=== PATIENT | male | born 1945 | race Caucasian/White ===

== ENCOUNTER 2017-10-17 14:13 | Inpatient (IN) | payer OTHER, MEDICARE ==
[~2017-10-17] VITALS: Ht 175.3 cm; Wt 65.6 kg
[2017-10-17 14:35] VITALS: BP 165/81; PULSE 63; RESP 20; TEMP 98.2; O2SAT 96
[2017-10-17] MEDS ORDERED: SODIUM CHLORIDE 0.9% FLUSH 10 ML FLUSH IV FLUSH PRN (15:30)
--- NOTE | 2017-10-17 15:33 | PD ---
HPI Chief Complaint: Psychiatric Symptoms Time Seen by Provider: 15:06 Travel History International Travel<30 days: No Contact w/Intl Traveler<30days: No Traveled to known affect area: No History of Present Illness HPI 72-year-old male originally from [facility], is brought in under the Hu act with altered mental status and psychiatric issues. Patient has not been seen here before at [facility]. Patient is here with his who states long history including 3 previous strokes, and CABG 1 year ago, with secondary air embolism to the brain. Patient's states that he also has had a non- malignant brain tumor that was found at that time as well. Patient's states increased psychiatric symptoms including hallucinations, escaping his house, acting strangely and going to other people's houses, including locking himself in the neighbor's garage over the last several weeks. Patient is noted to have an indwelling catheter secondary to neurogenic bladder. He does have a psychiatrist and neurologist who are not here at [facility]. Patient has not had recent illness. The patient sells is concerned about his sexual relations with his . He is an unreliable historian. He was Hu acted today as he was in a neighbor's house with young children, and they were unaware of the patient' s condition. The feels that she is unable to care for the patient at home due to his increasing delusions and escaping behavior. She is concerned for his safety as well as others. He has no known drug allergies. [facility] Social History Alcohol Use: No Tobacco Use: No Substance Use: No Allergies-Medications (Allergen,Severity, Reaction): Coded Allergies: No Known Allergies (Unverified , 10/17/17) Review of Systems ROS Limitations: Poor Historian Except as stated in HPI: all other systems reviewed are Neg General / Constitutional: No: Fever Eyes: No: Visual changes HENT: No: Headaches Cardiovascular: No: Chest Pain or Discomfort Respiratory: No: Shortness of Breath Gastrointestinal: No: Abdominal Pain Genitourinary: No: Dysuria Musculoskeletal: No: Pain Skin: No Rash Neurologic: No: Weakness Psychiatric: No: Depression Endocrine: No: Polydipsia Hematologic/Lymphatic: No: Easy Bruising Physical Exam Exam Limitations: Altered Mental Status, Poor Historian Narrative GENERAL: Patient appears in good spirits. He answers questions appropriately, but is focused on his, and his 's sexual relations. SKIN: Warm and dry. Normal color. Normal turgor. No rash HEAD: Atraumatic. Normocephalic. EYES: Pupils equal and round. No scleral icterus. No injection or drainage. No nystagmus. ENT: No nasal bleeding or discharge. Mucous membranes pink and moist. Pharynx is clear. Airways patent NECK: Trachea midline. Supple and nontender. CARDIOVASCULAR: Regular rate and rhythm. RESPIRATORY: No accessory muscle use. Clear to auscultation. Breath sounds equal bilaterally. GASTROINTESTINAL: Abdomen soft, non-tender, nondistended. Hepatic and splenic margins not palpable. MUSCULOSKELETAL: Extremities without clubbing, cyanosis, or edema. No obvious deformities. NEUROLOGICAL: Awake and alert. No obvious cranial nerve deficits. Motor grossly within normal limits. Five out of 5 muscle strength in the arms and legs. Normal speech. PSYCHIATRIC: Appropriate mood and affect; insight and judgment normal. Data Data Last Documented VS Vital Signs Date Time Temp Pulse Resp B/P (MAP) Pulse Ox O2 Delivery O2 Flow Rate FiO2 10/17/17 16:02 58 16 195/112 (139) 98 Room Air 10/17/17 14:35 98.2 Orders Orders Electrocardiogram (10/17/17 15:17) Ammonia (10/17/17 15:17) Complete Blood Count With Diff (10/17/17 15:17) Comprehensive Metabolic Panel (10/17/17 15:17) Prothrombin Time / Inr (Pt) (10/17/17 15:17) Act Partial Throm Time (Ptt) (10/17/17 15:17) Troponin I (10/17/17 15:17) Thyroid Stimulating Hormone (10/17/17 15:17) Urinalysis - C+S If Indicated (10/17/17 15:17) Chest, Single Ap (10/17/17 15:17) Ct Brain W/O Iv Contrast(Rout) (10/17/17 15:17) Blood Glucose (10/17/17 15:17) Ecg Monitoring (10/17/17 15:17) Iv Access Insert/Monitor (10/17/17 15:17) Oximetry (10/17/17 15:17) Sodium Chloride 0.9% Flush (Ns Flush) (10/17/17 15:30) Drug Screen, Random Urine (10/17/17 15:17) Alcohol (Ethanol) (10/17/17 15:17) Urine Culture (10/17/17 15:30) Ceftriaxone Inj (Rocephin Inj) (10/17/17 17:00) Cephalexin (Keflex) (10/17/17 22:00) Labs Laboratory Tests Test 10/17/17 15:30 White Blood Count 7.2 TH/MM3 Red Blood Count 3.95 MIL/MM3 Hemoglobin 12.4 GM/DL Hematocrit 37.3 % Mean Corpuscular Volume 94.4 FL Mean Corpuscular Hemoglobin 31.4 PG Mean Corpuscular Hemoglobin Concent 33.3 % Red Cell Distribution Width 14.3 % Platelet Count 242 TH/MM3 Mean Platelet Volume 9.7 FL Neutrophils (%) (Auto) 56.6 % Lymphocytes (%) (Auto) 28.6 % Monocytes (%) (Auto) 10.9 % Eosinophils (%) (Auto) 3.2 % Basophils (%) (Auto) 0.7 % Neutrophils # (Auto) 4.1 TH/MM3 Lymphocytes # (Auto) 2.1 TH/MM3 Monocytes # (Auto) 0.8 TH/MM3 Eosinophils # (Auto) 0.2 TH/MM3 Basophils # (Auto) 0.1 TH/MM3 CBC Comment DIFF FINAL Differential Comment Prothrombin Time 10.7 SEC Prothromb Time International Ratio 1.1 RATIO Activated Partial Thromboplast Time 24.8 SEC Urine Color YELLOW Urine Turbidity HAZY Urine pH 6.5 Urine Specific [place] 1.011 Urine Protein 30 mg/dL Urine Glucose (UA) NEG mg/dL Urine Ketones NEG mg/dL Urine Occult Blood TRACE Urine Nitrite NEG Urine Bilirubin NEG Urine Urobilinogen LESS THAN 2.0 MG/DL Urine Leukocyte Esterase LARGE Urine RBC 1 /hpf Urine WBC 115 /hpf Urine WBC Clumps FEW Urine Amorphous Sediment RARE Urine Bacteria MOD /hpf Urine Mucus FEW /lpf Microscopic Urinalysis Comment CATH-CULTURE IND Blood Urea Nitrogen 19 MG/DL Creatinine 1.11 MG/DL Random Glucose 122 MG/DL Total Protein 6.1 GM/DL Albumin 3.1 GM/DL Calcium Level 8.2 MG/DL Alkaline Phosphatase 71 U/L Aspartate Amino Transf (AST/SGOT) 12 U/L Alanine Aminotransferase (ALT/SGPT) 15 U/L Total Bilirubin 0.3 MG/DL Sodium Level 144 MEQ/L Potassium Level 3.8 MEQ/L Chloride Level 108 MEQ/L Carbon Dioxide Level 30.7 MEQ/L Anion Gap 5 MEQ/L Estimat Glomerular Filtration Rate 65 ML/MIN Ammonia LESS THAN 10 MCMOL/L Troponin I LESS THAN 0.02 NG/ML Thyroid Stimulating Hormone 3rd Gen 1.010 uIU/ML Urine Opiates Screen NEG Urine Barbiturates Screen NEG Urine Amphetamines Screen NEG Urine Benzodiazepines Screen POS Urine Cocaine Screen NEG Urine Cannabinoids Screen NEG Ethyl Alcohol Level LESS THAN 3 MG/DL MDM Medical Decision Making Medical Screen Exam Complete: Yes Emergency Medical Condition: Yes Differential Diagnosis Altered mental status. History of CVA. History of brain tumor. Worsening psychiatric symptoms. Hu act. Narrative Course Patient appears medically stable at time of exam. EKG is ordered. EKG shows sinus bradycardia with ST changes consistent with CABG history. This is reviewed with Dr. Bustamante. No acute findings are noted CT of the brain and chest x-ray is ordered. Labs ordered including CBC, CMP, coagulation studies, urinalysis, urine drug screen, serum alcohol level, TSH, cardiac panel. IV access is obtained. CBC shows mild anemia with a hemoglobin of 12.4, hematocrit is 37.3. Coagulation studies are unremarkable. Chemistries show chloride of 108, BUN 19, creatinine is 1.11, GFR 65, random glucose 122, calcium is 8.2, AST is 12, ammonia is less than 10, troponin is less than 0.02, protein is 6.1, albumin is 3.1. TSH is normal. Serum alcohol is less than 3. Chest x-ray shows minimal bibasilar airspace disease presumably atelectasis, no acute abnormality otherwise CT shows: 1. 2.7 x 2.0 cm peripherally calcified left posterior parietal extra-axial mass near the vertex likely reflecting meningioma. Further characterization may be performed with contrast-enhanced MRI exam on an outpatient basis if this has not been previously evaluated. 2. Encephalomalacia in the left posterior frontal high convexities near vertex, left occipital lobe, and right frontal mid to high convexities consistent with prior infarcts. 3. Otherwise, no acute intracranial abnormality. Urine drug screen positive for benzodiazepines otherwise negative. Urinalysis suggests urinary tract infection with 30+ protein, trace of blood, large leukocyte esterase with 115 WBCs, few of his white blood cell clumps, moderate bacteria. Patient does have indwelling catheter. Patient will be given Rocephin 1 g IV. Patient to be continued on Keflex 500 mg 3 times daily for 7 days. Patient is medically cleared for psychiatric evaluation. Diagnosis Primary Impression: Urinary tract infection Qualified Codes: T83.511A - Infection and inflammatory reaction due to indwelling urethral catheter, initial encounter; N39.0 - Urinary tract infection , site not specified Additional Impression: Psychiatric symptoms Condition: Stable Alfredo Dennis Oct 17, 2017 15:33
[2017-10-17 16:02] VITALS: BP 195/112; PULSE 58; RESP 16; O2SAT 98
--- NOTE | 2017-10-17 16:03 | RADRPT ---
EXAM DATE/TIME: 10/17/2017 15:25 [facility] COMPARISON: No previous studies available for comparison. INDICATIONS : Altered mental status. RADIATION DOSE: 56.35 CTDIvol (mGy) MEDICAL HISTORY : Cardiovascular disease. SURGICAL HISTORY : CABG ENCOUNTER: Initial ACUITY: 1 day PAIN SCALE: 0/10 LOCATION: cranial TECHNIQUE: Multiple contiguous axial images were obtained of the head. Using automated exposure control and adj ustment of the mA and/or kV according to patient size, radiation dose was kept as low as reasonably a chievable to obtain optimal diagnostic quality images. DICOM format image data is available electro nically for review and comparison. FINDINGS: CEREBRUM: There is a 2.7 x 2.0 cm peripherally calcified hyperdense extra-axial mass in the left posterior mellissa etal vertex. Mild associated mass effect without evidence for midline shift or associated intra-axial abnormality. Focal encephalomalacia in the left posterior frontal high convexities near the vertex a nd right frontal mid to high convexities. There is also apparent focal encephalomalacia in the left o ccipital lobe convexities. Moderate diffuse cerebral atrophy. The ventricles are normal for degree of atrophy. No evidence of midline shift, mass lesion, hemorrhage or acute infarction. No extra-axial fluid collections are seen. POSTERIOR FOSSA: The cerebellum and brainstem are intact. The 4th ventricle is midline. The cerebellopontine angle i s unremarkable. EXTRACRANIAL: The visualized portion of the orbits is intact. SKULL: The calvaria is intact. No evidence of skull fracture. CONCLUSION: 1. 2.7 x 2.0 cm peripherally calcified left posterior parietal extra-axial mass near the vertex likel y reflecting meningioma. Further characterization may be performed with contrast-enhanced MRI exam on an outpatient basis if this has not been previously evaluated. 2. Encephalomalacia in the left posterior frontal high convexities near vertex, left occipital lobe, and right frontal mid to high convexities consistent with prior infarcts. 3. Otherwise, no acute intracranial abnormality. Carlos Dougherty MD on October 17, 2017 at 15:55 Board Certified Radiologist. This report was verified electronically.
[2017-10-17 16:15] LABS: AUTOMATED NEUTROPHIL # 4.1 TH/MM3 (1.8-7.7); BASOPHIL # 0.1 TH/MM3 (0-0.2); BASOPHIL % 0.7 % (0.0-2.0); EOSINOPHIL # 0.2 TH/MM3 (0-0.4); EOSINOPHIL % 3.2 % (0.0-4.0); HEMATOCRIT 37.3 % (39.0-51.0); HEMOGLOBIN 12.4 GM/DL (13.0-17.0); LYMPH % 28.6 % (9.0-44.0); LYMPHOCYTE # 2.1 TH/MM3 (1.0-4.8); MEAN CELL VOLUME 94.4 FL (80.0-100.0); MEAN CORPUSCULAR HEMOGLOBIN 31.4 PG (27.0-34.0); MEAN CORPUSCULAR HGB CONC 33.3 % (32.0-36.0); MEAN PLATELET VOLUME 9.7 FL (7.0-11.0); MONO % 10.9 % (0.0-8.0); MONOCYTE # 0.8 TH/MM3 (0-0.9); NEUT % 56.6 % (16.0-70.0); PLATELET COUNT 242 TH/MM3 (150-450); RED BLOOD COUNT 3.95 MIL/MM3 (4.50-5.90); RED CELL DISTRIBUTION WIDTH 14.3 % (11.6-17.2); WHITE BLOOD COUNT 7.2 TH/MM3 (4.0-11.0)
--- NOTE | 2017-10-17 16:20 | RADRPT ---
EXAM DATE/TIME: 10/17/2017 15:34 [facility] COMPARISON: No previous studies available for comparison. INDICATIONS : Shortness of breath. MEDICAL HISTORY : None. SURGICAL HISTORY : CABG. ENCOUNTER: Initial ACUITY: 1 day PAIN SCORE: 0/10 LOCATION: Bilateral chest FINDINGS: Postsurgical changes of prior median sternotomy and cardiac surgery. Minimal bibasilar airspace disea se. Cardiomediastinal contours are within normal limits. Bony thorax is intact. CONCLUSION: 1. Minimal bibasilar airspace disease, presumably atelectasis. 2. Otherwise, no acute abnormality. Carlos Dougherty MD on October 17, 2017 at 16:16 Board Certified Radiologist. This report was verified electronically.
[2017-10-17 16:31] LABS: ALBUMIN 3.1 GM/DL (3.4-5.0); ALT (GPT) 15 U/L (12-78); AST (GOT) 12 U/L (15-37); BICARBONATE 30.7 MEQ/L (21.0-32.0); BLOOD UREA NITROGEN 19 MG/DL (7-18); CALCIUM 8.2 MG/DL (8.5-10.1); CHLORIDE 108 MEQ/L (98-107); CREATININE 1.11 MG/DL (0.60-1.30); GLOMERULAR FILTRATION RATE 65 ML/MIN (>89); GLUCOSE,RANDOM 122 MG/DL (74-106); SODIUM (NA) 144 MEQ/L (136-145)
[2017-10-17 16:32] LABS: INTERNATIONAL NORMALIZED RATIO 1.1 RATIO; PROTHROMBIN TIME - PATIENT 10.7 SEC (9.8-11.6)
[2017-10-17 16:40] LABS: ALKALINE PHOSPHATASE 71 U/L (45-117); AMORPHOUS SEDIMENT, URINE RARE; BACTERIA, URINE MOD /hpf; BILIRUBIN, URINE NEG (NEG); BLOOD, URINE TRACE (NEG); GLUCOSE,URINE NEG (NEG); KETONE, URINE NEG (NEG); MUCUS URINE FEW /lpf (OCC); NITRITE,URINE NEG (NEG); PH, URINE 6.5 (5.0-8.5); TOTAL BILIRUBIN ADULT 0.3 MG/DL (0.2-1.0); TOTAL PROTEIN 6.1 GM/DL (6.4-8.2); TROPONIN I LESS THAN 0.02 NG/ML (0.02-0.05); URINE COLOR YELLOW (YELLW/STRAW); URINE LEUKOCYTE ESTERASE LARGE (NEG); WHITE BLOOD CELL CLUMPS FEW
[2017-10-17] MEDS ORDERED: cefTRIAXone INJ 1,000 MG in SODIUM CHLORIDE 0.9% INJ 100 ML IV ONE (17:00)
[2017-10-17] MEDS ORDERED: LORazepam 1 MG TAB PO ONE (17:15)
[2017-10-17 18:45] VITALS: BP 168/93; PULSE 58; RESP 20; O2SAT 98
[2017-10-17] MEDS ORDERED: COLA100C5 PO (18:51)
[2017-10-17] MEDS ORDERED: CARV3.12 PO (18:51)
[2017-10-17] MEDS ORDERED: FINA5TAB2 PO (18:51)
[2017-10-17] MEDS ORDERED: LISI2.5T3 PO (18:51)
[2017-10-17] MEDS ORDERED: TAMS0.4C4 PO (18:51)
[2017-10-17] MEDS ORDERED: APIX5TAB PO (18:51)
[2017-10-17] MEDS ORDERED: FAMO20TA2 PO (18:51)
[2017-10-17] MEDS ORDERED: SERT25TA83 PO (18:51)
[2017-10-17] MEDS ORDERED: ATOR40TA16 PO (18:51)
[2017-10-17 20:00] VITALS: BP 165/87; PULSE 64; RESP 18; O2SAT 98
[2017-10-17] MEDS: CEPHALEXIN MONOHYDRATE 500 MG CAP PO SCH (22:21)
[2017-10-17 22:30] VITALS: BP 134/98; PULSE 66; RESP 18; O2SAT 98
[2017-10-18] VITALS (7 sets, daily range): BP systolic 103–226; BP diastolic 60–121; PULSE 65–84; RESP 16–18; TEMP 97.9; O2SAT 97–98
[2017-10-18] MEDS: CEPHALEXIN MONOHYDRATE 500 MG CAP PO SCH ×3 (07:54→22:00)
--- NOTE | 2017-10-18 17:58 | PD ---
Data Data Last Documented VS Vital Signs Date Time Temp Pulse Resp B/P (MAP) Pulse Ox O2 Delivery O2 Flow Rate FiO2 10/18/17 13:54 70 16 155/91 (112) 98 Room Air 10/17/17 14:35 98.2 Orders Orders Electrocardiogram (10/17/17 15:17) Ammonia (10/17/17 15:17) Complete Blood Count With Diff (10/17/17 15:17) Comprehensive Metabolic Panel (10/17/17 15:17) Prothrombin Time / Inr (Pt) (10/17/17 15:17) Act Partial Throm Time (Ptt) (10/17/17 15:17) Troponin I (10/17/17 15:17) Thyroid Stimulating Hormone (10/17/17 15:17) Urinalysis - C+S If Indicated (10/17/17 15:17) Chest, Single Ap (10/17/17 15:17) Ct Brain W/O Iv Contrast(Rout) (10/17/17 15:17) Blood Glucose (10/17/17 15:17) Ecg Monitoring (10/17/17 15:17) Iv Access Insert/Monitor (10/17/17 15:17) Oximetry (10/17/17 15:17) Sodium Chloride 0.9% Flush (Ns Flush) (10/17/17 15:30) Drug Screen, Random Urine (10/17/17 15:17) Alcohol (Ethanol) (10/17/17 15:17) Urine Culture (10/17/17 15:30) Ceftriaxone Inj (Rocephin Inj) (10/17/17 17:00) Cephalexin (Keflex) (10/17/17 22:00) Lorazepam (Ativan) (10/17/17 17:15) Diet Regular Basic (10/18/17 Breakfast) Diet Regular Basic (10/18/17 Lunch) Diet Regular Basic (10/18/17 Dinner) Psych Screen (10/18/17 17:39) Admit Order (Ed Use Only) (10/18/17 ) Vital Signs (Adult) Q4H (10/18/17 18:43) Diet Heart Healthy (10/18/17 Dinner) Activity Oob With Assistance (10/18/17 18:43) Notify Dr: Other (10/18/17 18:43) Labs Laboratory Tests Test 10/17/17 15:30 White Blood Count 7.2 TH/MM3 Red Blood Count 3.95 MIL/MM3 Hemoglobin 12.4 GM/DL Hematocrit 37.3 % Mean Corpuscular Volume 94.4 FL Mean Corpuscular Hemoglobin 31.4 PG Mean Corpuscular Hemoglobin Concent 33.3 % Red Cell Distribution Width 14.3 % Platelet Count 242 TH/MM3 Mean Platelet Volume 9.7 FL Neutrophils (%) (Auto) 56.6 % Lymphocytes (%) (Auto) 28.6 % Monocytes (%) (Auto) 10.9 % Eosinophils (%) (Auto) 3.2 % Basophils (%) (Auto) 0.7 % Neutrophils # (Auto) 4.1 TH/MM3 Lymphocytes # (Auto) 2.1 TH/MM3 Monocytes # (Auto) 0.8 TH/MM3 Eosinophils # (Auto) 0.2 TH/MM3 Basophils # (Auto) 0.1 TH/MM3 CBC Comment DIFF FINAL Differential Comment Prothrombin Time 10.7 SEC Prothromb Time International Ratio 1.1 RATIO Activated Partial Thromboplast Time 24.8 SEC Urine Color YELLOW Urine Turbidity HAZY Urine pH 6.5 Urine Specific [place] 1.011 Urine Protein 30 mg/dL Urine Glucose (UA) NEG mg/dL Urine Ketones NEG mg/dL Urine Occult Blood TRACE Urine Nitrite NEG Urine Bilirubin NEG Urine Urobilinogen LESS THAN 2.0 MG/DL Urine Leukocyte Esterase LARGE Urine RBC 1 /hpf Urine WBC 115 /hpf Urine WBC Clumps FEW Urine Amorphous Sediment RARE Urine Bacteria MOD /hpf Urine Mucus FEW /lpf Microscopic Urinalysis Comment CATH-CULTURE IND Blood Urea Nitrogen 19 MG/DL Creatinine 1.11 MG/DL Random Glucose 122 MG/DL Total Protein 6.1 GM/DL Albumin 3.1 GM/DL Calcium Level 8.2 MG/DL Alkaline Phosphatase 71 U/L Aspartate Amino Transf (AST/SGOT) 12 U/L Alanine Aminotransferase (ALT/SGPT) 15 U/L Total Bilirubin 0.3 MG/DL Sodium Level 144 MEQ/L Potassium Level 3.8 MEQ/L Chloride Level 108 MEQ/L Carbon Dioxide Level 30.7 MEQ/L Anion Gap 5 MEQ/L Estimat Glomerular Filtration Rate 65 ML/MIN Ammonia LESS THAN 10 MCMOL/L Troponin I LESS THAN 0.02 NG/ML Thyroid Stimulating Hormone 3rd Gen 1.010 uIU/ML Urine Opiates Screen NEG Urine Barbiturates Screen NEG Urine Amphetamines Screen NEG Urine Benzodiazepines Screen POS Urine Cocaine Screen NEG Urine Cannabinoids Screen NEG Ethyl Alcohol Level LESS THAN 3 MG/DL MDM Medical Record Reviewed: Yes Supervised Visit with [place]: Yes Narrative Course I, Dr. Kenny, have reviewed the advance practice practitioner's documentation and am in agreement, met with the patient face to face, made the diagnosis, and the medical decision making was done by me. *My assessment and Findings: I saw and evaluated the patient is 6:05 PM. He was resting comfortably on his bed. He was AO 3. Patient has no suicidal ideation or homicidal ideation. I called the 3 times however there was no answer. The patient will be kept here because he has a urinary tract infection and has been wandering out in the public. I anticipate a significant improvement in neurologic/functional status after a day of antibiotics. I spoke with the patient's who reports he has been wandering around in public. He has been hiding denies. He is afraid of a box in her house. He reports there is a body in the box. He reports police officers are going to take the box. At times there are notes in this box. Evidently he has been walking to his neighbor's yard recently as well. I spoke with Nelli who agrees inpatient psych management is most appropriate disposition for this patient. Medicine can be consulted for UTI. Hu Act signed by the undersigned. Diagnosis Primary Impression: Urinary tract infection Qualified Codes: T83.511A - Infection and inflammatory reaction due to indwelling urethral catheter, initial encounter; N39.0 - Urinary tract infection , site not specified Additional Impression: Psychiatric symptoms Admitting Information Admitting Physician Requests: Admit Condition: Stable Jm Kenny MD Oct 18, 2017 17:58
[2017-10-18] MEDS ORDERED: ALUMINUM/MAGNESIUM/SIMETH 30 ML CUP PO PRN (19:15)
[2017-10-18] MEDS ORDERED: ACETAMINOPHEN 325 MG TAB PO PRN (19:15)
[2017-10-18] MEDS ORDERED: MAGNESIUM HYDROXIDE SUSP 30 ML CUP PO PRN (19:15)
--- NOTE | 2017-10-18 21:21 | EKG ---
Date Performed: 10/17/2017 Time Performed: 15:42:16 PTAGE: 72 years EKG: SINUS BRADYCARDIA POSSIBLE LEFT ATRIAL ENLARGEMENT SEPTAL MYOCARDIAL INFARCTION PROBABLE IN FERIOR MYOCARDIAL INFARCTION MODERATE T-WAVE ABNORMALITY, CONSIDER LATERAL ISCHEMIA ABNORMAL ECG NO PREVIOUS TRACING DOCTOR: Blake Castaneda Interpretating Date/Time 10/18/2017 21:21:15
[2017-10-18] MEDS ORDERED: CARVEDILOL 3.125 MG TAB PO ONE (22:30)
[2017-10-18] MEDS ORDERED: PILL SPLITTER OTHER PRN (22:30)
[2017-10-18] MEDS ORDERED: TAMSULOSIN HCL 0.4 MG CAP PO ONE (22:30)
[2017-10-18] MEDS ORDERED: LISINOPRIL 5 MG TAB PO ONE (22:30)
[2017-10-19] VITALS (9 sets, daily range): BP systolic 50–214; BP diastolic 40–110; PULSE 76–97; RESP 16–18; TEMP 97.6–97.8; O2SAT 96–97
[2017-10-19] MEDS ORDERED: SODIUM CHLOR 0.9% 1000 ML INJ 1,000 ML IV ONE (00:45)
--- NOTE | 2017-10-19 01:12 | HHI.PR ---
Addendum to Inpatient Note Addendum Reason: Additional Documentation Additional Information S: Resident team received a call from the call center at 00:18 regarding a [facility] called on this patient. By the time we arrived a few minutes later, nursing staff had informed us that the patient had previously been hypertensive up to a systolic blood pressure in the 200s. The patient had been given an antihypertensive medication, causing him to become hypotensive and lethargic. Psychiatrist Dr. Ferris had already been called and a 1 L fluid bolus was ordered. By the time we arrived, the patient had perked up significantly. O: Vitals: Blood pressure 87/56, pulse 60-70, pulse ox 96% on room air. General: Patient is smiling, jovial, laughing, conversational. No signs of distress. A/P: Patient is a 72-year-old man who was admitted for psychosis and UTI who was previously hypertensive earlier today and became symptomatically hypotensive after administration of carvedilol, lisinopril, tamsulosin. By the time we arrived, patient was no longer symptomatic. -Psychiatrist Dr. Ferris had already been called and a 1 L fluid bolus was ordered -Instructed nursing staff to call us with any more concerns Things to consider regarding recent antihypertensive regimen: -Beta-Blockers may enhance the orthostatic hypotensive effect of Alpha1- Blockers. -Patient's extreme hypertension and then hypo-tension after administration of lisinopril may be concerning for renovascular disease like renal artery stenosis. Monitor for rising Cr. BMP ordered for tomorrow. Fitz Munguia MD R2 October 19, 2017 01:12
[2017-10-19] MEDS ORDERED: ENALAPRILAT 2.5 MG/2 ML VIAL IV PUSH ONE (03:30)
[2017-10-19] MEDS ORDERED: cloNIDine HCL 0.1 MG TAB PO ONE (03:30)
[2017-10-19] MEDS: CEPHALEXIN MONOHYDRATE 500 MG CAP PO SCH (06:00)
[2017-10-19 08:29] LABS: BICARBONATE 27.7 MEQ/L (21.0-32.0); CALCIUM 9.3 MG/DL (8.5-10.1); CHLORIDE 103 MEQ/L (98-107); CHOLESTEROL 185 MG/DL (120-200); CREATININE 1.52 MG/DL (0.60-1.30); GLOMERULAR FILTRATION RATE 46 ML/MIN (>89); GLUCOSE,RANDOM 184 MG/DL (74-106); SODIUM (NA) 141 MEQ/L (136-145)
[2017-10-19 08:33] LABS: BLOOD UREA NITROGEN 23 MG/DL (7-18)
[2017-10-19 08:58] LABS: CHOLESTEROL/ HDL RATIO 3.69 RATIO; HDL CHOLESTEROL 50.1 MG/DL (40.0-60.0); LDL CHOLESTEROL 118 MG/DL (0-99); TRIGLYCERIDES 85 MG/DL (42-150)
[2017-10-19] MEDS: risperiDONE 1 MG TAB PO SCH ×2 (12:15→21:00)
[2017-10-19] MEDS ORDERED: SODIUM CHLOR 0.9% 1000 ML INJ 1,000 ML IV SCH (13:15)
[2017-10-19] MEDS ORDERED: ERGOCALCIFEROL (VIT D2) 50,000 UNIT CAP PO ONE (13:15)
--- NOTE | 2017-10-19 13:24 | PD.CONS ---
HPI Service [facility] Hospitalists Consult Requested By Nelli Amaral Reason for Consult Dx with UTI, manage care. Primary Care Physician Unknown Diagnoses: (1) Urinary tract infection History of Present Illness 72-year-old male with history of CVA x3, CAD s/p CABG October2016, HTN, HLD, nonmalignant brain tumor, neurogenic bladder with indwelling catheter, admitted under Hu Act to medical psychiatric unit for bizarre behavior, delusions, escaping his home. Hospitalists consulted for medical management of UTI diagnosed on admission. The patient is seen lying in bed, he does not give much history. He states "not right now, I don't want to talk about it". He does answer some questions about his medical history but then refuses to give further details. He states he's had the Soils catheter since his CABG in October2016. He denies any fevers/chills, abdominal/suprapubic pain, or nausea/ vomiting. He declines to answer any further questions. Review of Systems ROS Limitations: Uncooperative, Poor Historian Except as stated in HPI: all other systems reviewed are Neg Past Family Social History Allergies: Coded Allergies: No Known Allergies (Unverified , 10/17/17) Past Medical History CVA x3 CAD s/p CABG October2016 HTN HLD nonmalignant brain tumor neurogenic bladder with indwelling catheter Past Surgical History CABG October2016 Reported Medications Tamsulosin (Tamsulosin HCl) 0.4 Mg Cap 0.4 Mg PO HS Atorvastatin (Atorvastatin Calcium) 40 Mg Tab 40 Mg PO HS Eliquis (Apixaban) 5 Mg Tab 5 Mg PO BID Famotidine 20 Mg Tab 20 Mg PO BID Colace (Docusate Sodium) 100 Mg Capsule 100 Mg PO HS Finasteride 5 Mg Tab 5 Mg PO DAILY Do not crush. Sertraline (Sertraline HCl) 25 Mg Tab 25 Mg PO DAILY Lisinopril 2.5 Mg Tab 2.5 Mg PO DAILY Carvedilol 3.125 Mg Tab 3.125 Mg PO BID Active Ordered Medications Current Medications Medications (Trade) Dose Ordered Sig/Markus Route Start Time Stop Time Status Last Admin (NS Flush) 2 ml UNSCH PRN IV FLUSH 10/17/17 15:30 (Keflex) 500 mg Q8HR PO 10/17/17 22:00 10/19/17 06:00 (Tylenol) 650 mg Q4H PRN PO 10/18/17 19:15 (Milk Of Magnesia Liq) 30 ml DAILY PRN PO 10/18/17 19:15 (Mag-Al Plus Susp Liq) 30 ml Q6H PRN PO 10/18/17 19:15 (Pill Splitter) 1 ea UNSCH PRN OTHER 10/18/17 22:30 (Eliquis) 5 mg BID PO 10/19/17 21:00 (Lipitor) 40 mg HS PO 10/19/17 21:00 (Colace) 100 mg HS PO 10/19/17 21:00 (Pepcid) 20 mg BID PO 10/19/17 21:00 (Proscar) 5 mg DAILY PO 10/20/17 09:00 (Flomax) 0.4 mg HS PO 10/19/17 21:00 (risperDAL) 1 mg Q12HR PO 10/19/17 12:15 (Benadryl) 50 mg HS PRN PO 10/19/17 12:15 (Ativan) 0.5 mg Q6H PRN PO 10/19/17 12:15 Family History Patient declines to answer. Social History Denies any tobacco, alcohol, or illicit drug use. Physical Exam Vital Signs Vital Signs Date Time Temp Pulse Resp B/P (MAP) Pulse Ox O2 Delivery O2 Flow Rate FiO2 10/19/17 05:00 97.6 96 16 135/95 (108) 97 10/19/17 04:44 97.6 96 16 139/95 (110) 97 10/19/17 02:46 84 10/19/17 02:46 214/110 (144) 10/19/17 02:16 169/96 (120) 10/19/17 01:04 132/83 (99) 10/19/17 00:24 87/56 (66) 10/19/17 00:10 63/44 (50) 10/19/17 00:05 50/40 (43) 10/18/17 23:36 160/60 (93) 10/18/17 22:00 220/110 (146) 10/18/17 21:15 97.9 84 17 226/121 (156) 97 10/18/17 20:58 10/18/17 19:08 66 18 148/88 (108) 98 Room Air 10/18/17 13:54 70 16 155/91 (112) 98 Room Air Physical Exam GENERAL: Well-nourished, well-developed male patient in NAD. Lying in bed. SKIN: Warm and dry. No rash. HEAD: Normocephalic. Atraumatic. EYES: Pupils equal and round. No scleral icterus. No injection or drainage. ENT: No nasal bleeding or discharge. Mucous membranes pink and moist. NECK: Supple. Trachea midline. CARDIOVASCULAR: Regular rate and rhythm. No murmur appreciated. RESPIRATORY: No accessory muscle use. Clear to auscultation. Breath sounds equal bilaterally. GASTROINTESTINAL: Abdomen soft, non-tender, nondistended. Normoactive bowel sounds x4. MUSCULOSKELETAL: No obvious deformities. Extremities without clubbing, cyanosis , or edema. NEUROLOGICAL: Awake and alert. No obvious cranial nerve deficits. Motor grossly within normal limits. Normal speech. Laboratory Laboratory Tests Test 10/19/17 06:38 Blood Urea Nitrogen 23 Creatinine 1.52 Random Glucose 184 Calcium Level 9.3 Sodium Level 141 Potassium Level 3.7 Chloride Level 103 Carbon Dioxide Level 27.7 Anion Gap 10 Estimat Glomerular Filtration Rate 46 Triglycerides Level 85 Cholesterol Level 185 LDL Cholesterol 118 HDL Cholesterol 50.1 Cholesterol/HDL Ratio 3.69 Vitamin B12 Level 459 25-Hydroxy Vitamin D Total 16.0 Date/Time Source Procedure Growth Status 10/17/17 15:30 Urine Catheterized Urine Urine Culture - Final Complete Result Diagram: 10/17/17 1530 10/19/17 0638 Imaging Last Impressions Head CT 10/17/17 1517 Signed Impressions: Service Date/Time: Tuesday, October 17, 2017 15:25 - CONCLUSION: 1. 2.7 x 2.0 cm peripherally calcified left posterior parietal extra-axial mass near the vertex likely reflecting meningioma. Further characterization may be performed with contrast-enhanced MRI exam on an outpatient basis if this has not been previously evaluated. 2. Encephalomalacia in the left posterior frontal high convexities near vertex, left occipital lobe, and right frontal mid to high convexities consistent with prior infarcts. 3. Otherwise, no acute intracranial abnormality. Carlos Dougherty MD Chest X-Ray 10/17/17 1517 Signed Impressions: Service Date/Time: Tuesday, October 17, 2017 15:34 - CONCLUSION: 1. Minimal bibasilar airspace disease, presumably atelectasis. 2. Otherwise, no acute abnormality. Carlos Dougherty MD Assessment and Plan Assessment and Plan 72-year-old male with history of CVA x3, CAD s/p CABG October2016, HTN, HLD, nonmalignant brain tumor, neurogenic bladder with indwelling catheter, admitted under Hu Act to medical psychiatric unit for bizarre behavior, delusions, escaping his home. Hospitalists consulted for medical management of UTI diagnosed on admission. Psychosis: suspect underlying psychiatric illness. Rule out toxic/metabolic etiologies. -Head CT images reviewed, shows 2.72.0 cm calcified left posterior parietal extra-axial mass likely meningioma; encephalomalacia left posterior frontal high convexities, left occipital lobe, and right frontal mid to high convexities consistent with prior infarcts; no acute intracranial findings -UA abnormal however urine culture with likely contaminants -TSH wnl, ammonia wnl -Give IVF hydration -further management per psychiatry RENARD: Cr increased from 1.11 to 1.52 overnight. Suspect secondary to dehydration vs iatrogenic from antihypertensives given overnight. -give IVF hydration -avoid nephrotoxins -hold patient's lisinopril for now -monitor renal function, repeat BMP in am Abnormal UA: patient has Solis catheter in place secondary to neurogenic bladder -UA abnormal however urine culture with mixed suzy, probable contaminants -will discontinue antibiotics -consider repeat UA if develops fever or leukocytosis HTN/HLD/CAD s/p CABG: chronic -continue patient's home medications including statin, coreg -hold patient's lisinopril with RENARD as above -monitor BP, adjust antihypertensives as needed Neurogenic Bladder with Indwelling Solis Catheter: chronic, patient reports he' s had a Solis since his CABG back in October2016 -continue patient's flomax and finasteride -continue outpatient follow up Vitamin D Deficiency: Vit D level 16 -give ergocalciferol 50,000u x1 now -continue on cholecalciferol 1000u daily DVT Prophylaxis: ambulation 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
[2017-10-19] MEDS: LORazepam 0.5 MG TAB PO PRN (13:29)
--- NOTE | 2017-10-19 13:33 | PD.PSY.CON ---
Provisional Diagnosis Admission Date Oct 18, 2017 at 18:45 [place] I. Unspecified psychosis History of Present Illness Service Psychiatry Consult Requested By Psychiatry Reason for Consult Second opinion Primary Care Physician Unknown HPI Patient is a 72-year-old man, with no formal past psychiatric history , no previous psychiatric admissions, no previous suicide attempt or self- injurious behavior, recently seen by Dr. Horne on an outpatient basis started on Lorazepam, escitalopram, risperidone and temazepam, with a past medical history significant for CVA x3, CAD s/p CABG October 2016, HTN, HLD, nonmalignant brain tumor, neurogenic bladder with indwelling catheter, who was brought into the ED under Hu act due to altered mental status, hallucinations, paranoia, locking self in the neighbor's garage for weeks and hiding knives which patient was admitted to the inpatient psychiatry unit for further evaluation and management. Patient was found in blade on the unit at times noted to be attending to exit the unit but noted B, cooperative. Patient states that "finally I am okay" and he reports having stress for the past 6 days mentioning that he has started in his community. Patient states that he has noticing things in the community "Girdler is invading" and that his has introduce them and invited them which he was very concerned about. Patient also states having noticed "devices that should bullets on the shields" and having noticed them in his bathroom moving around feeling that the Russians want to kill him. Patient is alert and oriented 3. Patient believes that he is here in the hospital due to difficulty or complications from a urinary catheter. Patient at this time reports feeling "average" reporting auditory hallucinations "sometimes" denying any visual hallucinations other than his previous report of seeing these devices on the shields. Patient continues to endorse paranoid ideations, persecutory delusions. Collateral information was obtained by patient's Ny Zuniga [phone], reports that they have been made behavioral changes since after patient's heart surgery in October 1999 team which he has suffered a complication of air embolism to the brain and reports patient having had a history of previous strokes in the past. Patient states that patient has started seeing things, things moving in the house, and had noticed that patient was having a big knife for protection under a napkin which she felt very scared. She also reported that patient had stated being afraid of a box in the hallway of the home stating that the bottle sending signals to him and that there was a body in there. She also mentions that they have been neighbors have been afraid of him due to his recent paranoia. She also reports the patient was seen by Dr. Agudelo on 2 previous occasions and had been started on Lorazepam 0.5 mg p.o. twice daily escitalopram, risperidone 0.5 twice daily and increase to 1 mg p.o. twice daily recently along with temazepam, last seen on 10/15/17. She states that she feels that the medications have not been working. She agrees to be patient's healthcare surrogate and guardian advocate during this admission and consented to starting of medications after the reviewed with her. The patient is a 72-year-old [place] man, domiciled with his , no previous psychiatric history medical history of HTN, CVA, CAD, brain tumor, urinary incontinence, who was admitted in the hospital due to paranoia and bizarre delusions. Consulted to me for second opinion. On psychiatric evaluation the patient is calm, cooperative, talkative. He is evaluated in the recreational area of the unit. Patient reports that the reason he is here is because nobody believe that there is an invasion of [place] in the [place]. He reports that Devonte's name means in albanian "take the world", and for this reason he knows that [place] is in a huge danger. Other than that the patient is oriented 3, he denies suicidal and homicidal ideation, he denies visual and auditory hallucinations. Review of Systems Constitutional: DENIES: Diaphoretic episodes, Fatigue, Fever, Weight gain, Weight loss, Chills, Dizziness, Change in appetite, Night Sweats Endocrine: DENIES: Heat/cold intolerance, Polydipsia, Polyuria, Polyphagia Eyes: DENIES: Blurred vision, Diplopia, Eye inflammation, Eye pain, Vision loss , Photosensitivity, Double Vision Ears, nose, mouth, throat: DENIES: Tinnitus, Hearing loss, Vertigo, Nasal discharge, Oral lesions, Throat pain, Hoarseness, Ear Pain, Running Nose, Epistaxis, Sinus Pain, Toothache, Odynophagia Respiratory: DENIES: Apneas, Cough, Snoring, Wheezing, Hemoptysis, Sputum production, Shortness of breath Cardiovascular: DENIES: Chest pain, Palpitations, Syncope, Dyspnea on Exertion , PND, Lower Extremity Edema, Orthopnea, Claudication Gastrointestinal: DENIES: Abdominal pain, Black stools, Bloody stools, Constipation, Diarrhea, Nausea, Vomiting, Difficulty Swallowing, Anorexia Genitourinary: DENIES: Sexual dysfunction, Urinary frequency, Urinary incontinence, Urgency, Hematuria, Dysuria, Nocturia, Penile Discharge, Testicular Pain, Testicular Swelling Musculoskeletal: DENIES: Joint pain, Muscle aches, Stiffness, Joint Swelling, Back pain, Neck pain Integumentary: DENIES: Abnormal pigmentation, Nail changes, Pruritus, Rash Hematologic/lymphatic: DENIES: Bruising, Lymphadenopathy Immunologic/allergic: DENIES: Eczema, Urticaria Neurologic: DENIES: Abnormal gait, Headache, Localized weakness, Paresthesias, Seizures, Speech Problems, Tremor, Poor Balance Psychiatric: DENIES: Anxiety, Confusion, Mood changes, Depression, Hallucinations, Agitation, Suicidal Ideation, Homicidal Ideation, Delusions Past Family Social History Coded Allergies: No Known Allergies (Unverified , 10/17/17) Reported Medications Tamsulosin (Tamsulosin) 0.4 Mg Cap, 0.4 MG PO HS for Manage Prostate Problems, # 30 CAP 0 Refills 10/17/17 Atorvastatin (Atorvastatin) 40 Mg Tab, 40 MG PO HS for Cholesterol Management, # 30 TAB 0 Refills 10/17/17 Apixaban (Eliquis) 5 Mg Tab, 5 MG PO BID for Blood Clot Prevention, #60 TAB 0 Refills 10/17/17 Famotidine (Famotidine) 20 Mg Tab, 20 MG PO BID, #60 TAB 0 Refills 10/17/17 Docusate Sodium (Colace) 100 Mg Capsule, 100 MG PO HS for Prevent Constipation, #30 CAP 0 Refills 10/17/17 Finasteride (Finasteride) 5 Mg Tab, 5 MG PO DAILY for Manage Prostate Problems, #30 TAB 0 Refills Do not crush. 10/17/17 Sertraline (Sertraline) 25 Mg Tab, 25 MG PO DAILY, #30 TAB 0 Refills 10/17/17 Lisinopril (Lisinopril) 2.5 Mg Tab, 2.5 MG PO DAILY, #30 TAB 0 Refills 10/17/17 Carvedilol (Carvedilol) 3.125 Mg Tab, 3.125 MG PO BID, #60 TAB 0 Refills 10/17/17 Current Medications Medications (Trade) Dose Ordered Sig/Markus Route Start Time Stop Time Status Last Admin (NS Flush) 2 ml UNSCH PRN IV FLUSH 10/17/17 15:30 (Tylenol) 650 mg Q4H PRN PO 10/18/17 19:15 (Milk Of Magnesia Liq) 30 ml DAILY PRN PO 10/18/17 19:15 (Mag-Al Plus Susp Liq) 30 ml Q6H PRN PO 10/18/17 19:15 (Pill Splitter) 1 ea UNSCH PRN OTHER 10/18/17 22:30 (Eliquis) 5 mg BID PO 10/19/17 21:00 (Lipitor) 40 mg HS PO 10/19/17 21:00 (Colace) 100 mg HS PO 10/19/17 21:00 (Pepcid) 20 mg BID PO 10/19/17 21:00 (Proscar) 5 mg DAILY PO 10/20/17 09:00 (Flomax) 0.4 mg HS PO 10/19/17 21:00 (risperDAL) 1 mg Q12HR PO 10/19/17 12:15 (Benadryl) 50 mg HS PRN PO 10/19/17 12:15 (Ativan) 0.5 mg Q6H PRN PO 10/19/17 12:15 10/19/17 13:29 (Drisdol) 50,000 units ONCE ONCE PO 10/19/17 13:15 10/19/17 13:16 UNV (Vitamin D3) 1,000 units DAILY PO 10/20/17 09:00 UNV Sodium Chloride 1,000 ml @ 84 mls/hr [id number] IV 10/19/17 13:15 10/20/17 01:09 UNV (Coreg) 3.125 mg BID PO 10/19/17 21:00 UNV Physical Exam Vital Signs Vital Signs Date Time Temp Pulse Resp B/P (MAP) Pulse Ox O2 Delivery O2 Flow Rate FiO2 10/19/17 05:00 97.6 96 16 135/95 (108) 97 10/18/17 19:08 Room Air I/O 10/19/17 10/19/17 10/20/17 08:00 16:00 00:00 Intake Total 940 ml Output Total 300 ml Balance 640 ml Lab Results Test 10/19/17 06:38 Blood Urea Nitrogen 23 MG/DL Creatinine 1.52 MG/DL Random Glucose 184 MG/DL Calcium Level 9.3 MG/DL Sodium Level 141 MEQ/L Potassium Level 3.7 MEQ/L Chloride Level 103 MEQ/L Carbon Dioxide Level 27.7 MEQ/L Anion Gap 10 MEQ/L Estimat Glomerular Filtration Rate 46 ML/MIN Triglycerides Level 85 MG/DL Cholesterol Level 185 MG/DL LDL Cholesterol 118 MG/DL HDL Cholesterol 50.1 MG/DL Cholesterol/HDL Ratio 3.69 RATIO Vitamin B12 Level 459 PG/ML 25-Hydroxy Vitamin D Total 16.0 ng/ML Date/Time Source Procedure Growth Status 10/17/17 15:30 Urine Catheterized Urine Urine Culture - Final Complete Mental Status Examination Appearance: Appropriate Consciousness: Alert Orientation: x4 Motor Activity: Normal gait Speech: Unremarkable Language: Adequate Fund of Knowledge: Adequate Attention and Concentration: Adequate Memory: Unremarkable Mood: Appropriate Affect: Appropriate Thought Process & Associations: Intact Thought Content: Delusional Hallucination Type: None Delusion Type: Bizarre, Paranoid Suicidal Ideation: No Suicidal Plan: No Suicidal Intention: No Homicidal Ideation: No Homicidal Plan: No Homicidal Intention: No Insight: Poor Judgment: Poor Assessment & Plan Problem List: (1) Unspecified psychosis ICD Codes: F29 - Unspecified psychosis not due to a substance or known physiological condition Assessment & Plan: I have seen and examined this patient, reviewed documentation, discussed the case with Dr. Andres, I agree and concur with his assessment and plan. Assessment & Plan Estimated LOS: Akash Jordan MD October 19, 2017 13:33
--- NOTE | 2017-10-19 17:20 | HHI.HP ---
Provisional Diagnosis Admission Date Oct 18, 2017 at 18:45 [place] I. Unspecified psychosis Certification of Person's Competence To Provide Express and Informed Consent I have personally examined Fitz Lowe , a person being served at [facility], [place] on, October 19, 2017 16:54. Express and informed consent means consent voluntarily given in writing, by a competent person, after sufficient explanation and disclosure of the subject matter involved to enable the person to make a knowing and willful decision without any element of force, fraud, deceit, duress, or other form of constraint or coercion. This person is 18 years of age or older, is not now known to be incompetent to consent to treatment with a guardian advocate, and does not have a health care surrogate or proxy currently making medical treatment decisions. I have found this person to be one of the following: [] Competent to provide express and informed consent, as defined above, for voluntary admission to this facility and is competent to provide express and informed consent for treatment. He/she has the consistent capacity to make well reasoned, willful, and knowing decisions concerning his or her medical or mental health treatment. The person fully and consistently understands the purpose of the admission for examination/placement and is fully capable of personally exercising all rights assured under [place]xxx] Incompetent to provide express and informed consent to voluntary admission , and this is incompetent to provide express and informed consent to treatment. The person must be transferred to involuntary status and a petition for a guardian advocate filed with the Circuit Court. [] Refusing to provide express and informed consent to voluntary admission but is competent to provide express and informed consent for treatment. The person must be discharged or transferred to involuntary status. Form shall be completed within 24 hours of a person's arrival at the receiving facility and filed in the clinical record of each person: 1. Admitted on a voluntary basis 2. Permitted to provide express and informed consent to his/her own treatment 3. Allowed to transfer from involuntary to voluntary status 4. Prior to permitting a person to consent to his or her own treatment after having been previously found incompetent to consent to treatment. History of Present Illness Capacity: Lacks Capacity HPI Patient is a 72-year-old man, with no formal past psychiatric history , no previous psychiatric admissions, no previous suicide attempt or self- injurious behavior, recently seen by Dr. Horne on an outpatient basis started on Lorazepam, escitalopram, risperidone and temazepam, with a past medical history significant for CVA x3, CAD s/p CABG October 2016, HTN, HLD, nonmalignant brain tumor, neurogenic bladder with indwelling catheter, who was brought into the ED under Hu act due to altered mental status, hallucinations, paranoia, locking self in the neighbor's garage for weeks and hiding knives which patient was admitted to the inpatient psychiatry unit for further evaluation and management. Patient was found in blade on the unit at times noted to be attending to exit the unit but noted B, cooperative. Patient states that "finally I am okay" and he reports having stress for the past 6 days mentioning that he has started in his community. Patient states that he has noticing things in the community "[place] is invading" and that his has introduce them and invited them which he was very concerned about. Patient also states having noticed "devices that should bullets on the shields" and having noticed them in his bathroom moving around feeling that the Russians want to kill him. Patient is alert and oriented 3. Patient believes that he is here in the hospital due to difficulty or complications from a urinary catheter. Patient at this time reports feeling "average" reporting auditory hallucinations "sometimes" denying any visual hallucinations other than his previous report of seeing these devices on the shields. Patient continues to endorse paranoid ideations, persecutory delusions. Collateral information was obtained by patient's Ny Zuniga [phone], reports that they have been made behavioral changes since after patient's heart surgery in October 1999 team which he has suffered a complication of air embolism to the brain and reports patient having had a history of previous strokes in the past. Patient states that patient has started seeing things, things moving in the house, and had noticed that patient was having a big knife for protection under a napkin which she felt very scared. She also reported that patient had stated being afraid of a box in the hallway of the home stating that the bottle sending signals to him and that there was a body in there. She also mentions that they have been neighbors have been afraid of him due to his recent paranoia. She also reports the patient was seen by Dr. Agudelo on 2 previous occasions and had been started on Lorazepam 0.5 mg p.o. twice daily escitalopram, risperidone 0.5 twice daily and increase to 1 mg p.o. twice daily recently along with temazepam, last seen on 10/15/17. She states that she feels that the medications have not been working. She agrees to be patient's healthcare surrogate and guardian advocate during this admission and consented to starting of medications after the reviewed with her. Past psychiatric history: No previous psychiatric diagnoses, no prior psychiatric admissions, no previous suicide attempt or self-injurious behavior, outpatient follow-up with Dr. Horne, have been prescribed Lorazepam, citalopram , risperidone, and temazepam along with bupropion. Substance use history: Alcohol use 1 drink per day denies use of any other substance. 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 Review of Systems Except as stated in HPI: all other systems reviewed are Neg Past Psych History Violence risk - others (6 mos) Elevated due to recent paranoid Violence risk - self (6 mos) low Substance Abuse History Drugs/Alcohol past 12 months Alcohol use 1 drink per day denies use of any other substance. Past Family Social History Coded Allergies: No Known Allergies (Unverified , 10/17/17) Reported Medications Tamsulosin (Tamsulosin) 0.4 Mg Cap, 0.4 MG PO HS for Manage Prostate Problems, # 30 CAP 0 Refills 10/17/17 Atorvastatin (Atorvastatin) 40 Mg Tab, 40 MG PO HS for Cholesterol Management, # 30 TAB 0 Refills 10/17/17 Apixaban (Eliquis) 5 Mg Tab, 5 MG PO BID for Blood Clot Prevention, #60 TAB 0 Refills 10/17/17 Famotidine (Famotidine) 20 Mg Tab, 20 MG PO BID, #60 TAB 0 Refills 10/17/17 Docusate Sodium (Colace) 100 Mg Capsule, 100 MG PO HS for Prevent Constipation, #30 CAP 0 Refills 10/17/17 Finasteride (Finasteride) 5 Mg Tab, 5 MG PO DAILY for Manage Prostate Problems, #30 TAB 0 Refills Do not crush. 10/17/17 Sertraline (Sertraline) 25 Mg Tab, 25 MG PO DAILY, #30 TAB 0 Refills 10/17/17 Lisinopril (Lisinopril) 2.5 Mg Tab, 2.5 MG PO DAILY, #30 TAB 0 Refills 10/17/17 Carvedilol (Carvedilol) 3.125 Mg Tab, 3.125 MG PO BID, #60 TAB 0 Refills 10/17/17 Current Medications Medications (Trade) Dose Ordered Sig/Markus Route Start Time Stop Time Status Last Admin (NS Flush) 2 ml UNSCH PRN IV FLUSH 10/17/17 15:30 (Tylenol) 650 mg Q4H PRN PO 10/18/17 19:15 (Milk Of Magnesia Liq) 30 ml DAILY PRN PO 10/18/17 19:15 (Mag-Al Plus Susp Liq) 30 ml Q6H PRN PO 10/18/17 19:15 (Pill Splitter) 1 ea UNSCH PRN OTHER 10/18/17 22:30 (Eliquis) 5 mg BID PO 10/19/17 21:00 (Lipitor) 40 mg HS PO 10/19/17 21:00 (Colace) 100 mg HS PO 10/19/17 21:00 (Pepcid) 20 mg BID PO 10/19/17 21:00 (Proscar) 5 mg DAILY PO 10/20/17 09:00 (Flomax) 0.4 mg HS PO 10/19/17 21:00 (risperDAL) 1 mg Q12HR PO 10/19/17 12:15 (Benadryl) 50 mg HS PRN PO 10/19/17 12:15 (Ativan) 0.5 mg Q6H PRN PO 10/19/17 12:15 10/19/17 13:29 (Vitamin D3) 1,000 units DAILY PO 10/20/17 09:00 Sodium Chloride 1,000 ml @ 84 mls/hr [id number] IV 10/19/17 13:15 10/20/17 01:09 (Coreg) 3.125 mg BID PO 10/19/17 21:00 Social History , domiciled with , 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 Patient's Strengths (min. 2) Verbal and communicative Physical Exam Not noted to be in acute distress, no gross motor abnormalities, no signs of EPS or tremor, no psychomotor agitation or retardation. Vital Signs Vital Signs Date Time Temp Pulse Resp B/P (MAP) Pulse Ox O2 Delivery O2 Flow Rate FiO2 10/19/17 05:00 97.6 96 16 135/95 (108) 97 10/18/17 19:08 Room Air I/O 10/19/17 10/19/17 10/20/17 08:00 16:00 00:00 Intake Total 940 ml Output Total 300 ml Balance 640 ml Lab Results labs reviewed Test 10/19/17 06:38 Blood Urea Nitrogen 23 MG/DL Creatinine 1.52 MG/DL Random Glucose 184 MG/DL Calcium Level 9.3 MG/DL Sodium Level 141 MEQ/L Potassium Level 3.7 MEQ/L Chloride Level 103 MEQ/L Carbon Dioxide Level 27.7 MEQ/L Anion Gap 10 MEQ/L Estimat Glomerular Filtration Rate 46 ML/MIN Triglycerides Level 85 MG/DL Cholesterol Level 185 MG/DL LDL Cholesterol 118 MG/DL HDL Cholesterol 50.1 MG/DL Cholesterol/HDL Ratio 3.69 RATIO Vitamin B12 Level 459 PG/ML 25-Hydroxy Vitamin D Total 16.0 ng/ML Date/Time Source Procedure Growth Status 10/17/17 15:30 Urine Catheterized Urine Urine Culture - Final Complete Mental Status Examination Appearance: Appropriate Consciousness: Vigilant Orientation: Person, Place, Date/Time Motor Activity: Normal gait Speech: Unremarkable Language: Adequate Fund of Knowledge: Inadequate Attention and Concentration: Easily Distracted Memory: Unremarkable Mood: Anxious Affect: Anxious Thought Process & Associations: Disorganized Thought Content: Hallucinations, Delusional Hallucination Type: Auditory, Visual Delusion Type: Bizarre, Paranoid, Other (persecutory) Suicidal Ideation: No Suicidal Plan: No Suicidal Intention: No Homicidal Ideation: No Homicidal Plan: No Homicidal Intention: No Insight: Poor Judgment: Poor Assessment & Plan Problem List: (1) Unspecified psychosis ICD Codes: F29 - Unspecified psychosis not due to a substance or known physiological condition Assessment & Plan Estimated LOS: 5-7 days. Patient is a 72-year-old man, with no formal past psychiatric history, no previous psychiatric admissions, no previous suicide attempt or self-injurious behavior, recently seen by Dr. Horne on an outpatient basis started on Lorazepam, escitalopram, risperidone and temazepam, with a past medical history significant for CVA x3, CAD s/p CABG October 2016, HTN, HLD, nonmalignant brain tumor, neurogenic bladder with indwelling catheter, who was brought into the ED under Hu act due to altered mental status, hallucinations, paranoia, locking self in the neighbor's garage for weeks and hiding knives which patient was admitted to the inpatient psychiatry unit for further evaluation and management. Patient this time continues to endorse psychotic symptoms, we will start risperidone 1 mg p.o. twice daily with upper titration for psychosis. Patient will have Benadryl as needed for insomnia, lorazepam as needed for anxiety. Patient to continue recommendations as her prior medical team. We will continue to monitor mood and behavior. Petition for involuntary hospitalization started, second opinion requested. Patient's will serve as health care surrogate and guardian advocate for this admission when she has consented to starting psychotropic medications. Discharge planning in progress. Discharge Planning To be determined. Billy Andres MD October 19, 2017 17:20
[2017-10-19 17:30] LABS: HEMOGLOBIN A1C 6.1 % (4.3-6.0)
[2017-10-19] MEDS: FAMOTIDINE 20 MG TAB PO SCH (21:00)
[2017-10-19] MEDS: ATORVASTATIN 40 MG TAB PO SCH (21:00)
[2017-10-19] MEDS: CARVEDILOL 3.125 MG TAB PO SCH (21:00)
[2017-10-19] MEDS: TAMSULOSIN HCL 0.4 MG CAP PO SCH (21:00)
[2017-10-19] MEDS: DOCUSATE SODIUM 100 MG CAP PO SCH (21:00)
[2017-10-19] MEDS: APIXABAN 5 MG TABLET PO SCH (21:00)
[2017-10-20 06:23] VITALS: BP 122/81; PULSE 53; RESP 18; TEMP 98.5; O2SAT 97
[2017-10-20] MEDS: APIXABAN 5 MG TABLET PO SCH ×2 (09:15→21:00)
[2017-10-20] MEDS: CHOLECALCIFEROL (VIT D3) 1000 UNIT TAB PO SCH (09:15)
[2017-10-20] MEDS: CARVEDILOL 3.125 MG TAB PO SCH ×2 (09:15→21:00)
[2017-10-20] MEDS: FAMOTIDINE 20 MG TAB PO SCH ×2 (09:16→21:00)
[2017-10-20] MEDS: risperiDONE 1 MG TAB PO SCH (09:16)
[2017-10-20] MEDS: FINASTERIDE 5 MG TAB PO SCH (09:16)
[2017-10-20 09:28] LABS: BICARBONATE 28.9 MEQ/L (21.0-32.0); CREATININE 1.41 MG/DL (0.60-1.30)
[2017-10-20] MEDS ORDERED: SODIUM CHLOR 0.9% 1000 ML INJ 1,000 ML IV SCH (14:00)
--- NOTE | 2017-10-20 15:04 | HHI.PR ---
Subjective Remarks Follow up for RENARD, HTN. The patient is seen resting in bed. He has no medical complaints including no headache, fevers/chills, chest pain, shortness of breath , abdominal or urinary complaints. Discussed his renal function and encourage oral water intake. Patient refused IV fluids yesterday however so far he is agreeing to fluids today. Vital signs reviewed and stable, BP improved. Objective Vitals Vital Signs Date Time Temp Pulse Resp B/P (MAP) Pulse Ox O2 Delivery O2 Flow Rate FiO2 10/20/17 06:23 98.5 53 18 122/81 (95) 97 10/19/17 18:22 97.8 76 18 124/89 (101) 97 I/O 10/19/17 10/19/17 10/19/17 10/20/17 10/20/17 10/20/17 06:59 14:59 22:59 06:59 14:59 22:59 Intake Total 940 ml 1860 ml 120 ml 480 ml Output Total 300 ml Balance 640 ml 1860 ml 120 ml 480 ml Intake Oral 240 ml 1860 ml 120 ml 480 ml IV Total 700 ml Output Urine Total 300 ml Result Diagram: 10/17/17 1530 10/20/17 0812 Imaging Last Impressions Head CT 10/17/17 1517 Signed Impressions: Service Date/Time: Tuesday, October 17, 2017 15:25 - CONCLUSION: 1. 2.7 x 2.0 cm peripherally calcified left posterior parietal extra-axial mass near the vertex likely reflecting meningioma. Further characterization may be performed with contrast-enhanced MRI exam on an outpatient basis if this has not been previously evaluated. 2. Encephalomalacia in the left posterior frontal high convexities near vertex, left occipital lobe, and right frontal mid to high convexities consistent with prior infarcts. 3. Otherwise, no acute intracranial abnormality. Carlos Dougherty MD Chest X-Ray 10/17/17 1517 Signed Impressions: Service Date/Time: Tuesday, October 17, 2017 15:34 - CONCLUSION: 1. Minimal bibasilar airspace disease, presumably atelectasis. 2. Otherwise, no acute abnormality. Carlos Dougherty MD Objective Remarks GENERAL: Well-nourished, well-developed male patient in NAD. Lying in bed. SKIN: Warm and dry. No rash. HEENT: Normocephalic. Atraumatic. Pupils equal and round. Mucous membranes pink and moist. CARDIOVASCULAR: Regular rate and rhythm. No murmur appreciated. RESPIRATORY: No accessory muscle use. Clear to auscultation. Breath sounds equal bilaterally. GASTROINTESTINAL: Abdomen soft, non-tender, nondistended. Normoactive bowel sounds x4. MUSCULOSKELETAL: No obvious deformities. Extremities without clubbing, cyanosis , or edema. NEUROLOGICAL: Awake and alert. No obvious cranial nerve deficits. Motor grossly within normal limits. Normal speech. Medications and IVs Current Medications Medications (Trade) Dose Ordered Sig/Markus Route Start Time Stop Time Status Last Admin (NS Flush) 2 ml UNSCH PRN IV FLUSH 10/17/17 15:30 (Tylenol) 650 mg Q4H PRN PO 10/18/17 19:15 (Milk Of Magnesia Liq) 30 ml DAILY PRN PO 10/18/17 19:15 (Mag-Al Plus Susp Liq) 30 ml Q6H PRN PO 10/18/17 19:15 (Pill Splitter) 1 ea UNSCH PRN OTHER 10/18/17 22:30 (Eliquis) 5 mg BID PO 10/19/17 21:00 10/20/17 09:15 (Lipitor) 40 mg HS PO 10/19/17 21:00 10/19/17 21:00 (Colace) 100 mg HS PO 10/19/17 21:00 10/19/17 21:00 (Pepcid) 20 mg BID PO 10/19/17 21:00 10/20/17 09:16 (Proscar) 5 mg DAILY PO 10/20/17 09:00 10/20/17 09:16 (Flomax) 0.4 mg HS PO 10/19/17 21:00 10/19/17 21:00 (Benadryl) 50 mg HS PRN PO 10/19/17 12:15 (Ativan) 0.5 mg Q6H PRN PO 10/19/17 12:15 10/19/17 13:29 (Vitamin D3) 1,000 units DAILY PO 10/20/17 09:00 10/20/17 09:15 (Coreg) 3.125 mg BID PO 10/19/17 21:00 10/20/17 09:15 (risperDAL) 1 mg DAILY PO 10/21/17 09:00 (risperDAL) 1.5 mg HS PO 10/20/17 21:00 Sodium Chloride 1,000 ml @ 100 mls/hr Q10H IV 10/20/17 14:00 10/20/17 23:59 A/P Problem List: (1) Urinary tract infection ICD Code: N39.0 - Urinary tract infection, site not specified Status: Acute Assessment and Plan 72-year-old male with history of CVA x3, CAD s/p CABG October2016, HTN, HLD, nonmalignant brain tumor, neurogenic bladder with indwelling catheter, admitted under Hu Act to medical psychiatric unit for bizarre behavior, delusions, escaping his home. Hospitalists consulted for medical management of UTI diagnosed on admission. Psychosis: suspect underlying psychiatric illness. Rule out toxic/metabolic etiologies. -Head CT images reviewed, shows 2.72.0 cm calcified left posterior parietal extra-axial mass likely meningioma; encephalomalacia left posterior frontal high convexities, left occipital lobe, and right frontal mid to high convexities consistent with prior infarcts; no acute intracranial findings -UA abnormal however urine culture with likely contaminants -TSH wnl, ammonia wnl -Give IVF hydration -further management per psychiatry RENARD: Cr increased from 1.11 to 1.52. Suspect secondary to dehydration vs iatrogenic from antihypertensives given -give IVF hydration -avoid nephrotoxins -hold patient's lisinopril for now -monitor renal function -10/20, patient refused IV fluids yesterday, Creatinine remains elevated at 1.41, reordered IVF, patient verbalizes importance and agrees to IVF, also encourage oral intake Abnormal UA: patient has Solis catheter in place secondary to neurogenic bladder. -UA abnormal however urine culture with mixed suzy, probable contaminants -discontinued antibiotics -consider repeat UA if develops fever or leukocytosis HTN/HLD/CAD s/p CABG: chronic -continue patient's home medications including statin, coreg -hold patient's lisinopril with RENARD as above -monitor BP, adjust antihypertensives as needed Neurogenic Bladder with Indwelling Slois Catheter: chronic, patient reports he' s had a Solis since his CABG back in October2016 -continue patient's flomax and finasteride -continue outpatient follow up Vitamin D Deficiency: Vit D level 16 -given ergocalciferol 50,000u x1 -continue on cholecalciferol 1000u daily DVT Prophylaxis: ambulation Problem Qualifiers (1) Urinary tract infection: Qualified Codes: T83.511A - Infection and inflammatory reaction due to indwelling urethral catheter, initial encounter; N39.0 - Urinary tract infection , site not specified Carolyn Naylor PA-C October 20, 2017 3:04 pm
[2017-10-20 18:21] VITALS: BP 169/98; PULSE 63; RESP 18; TEMP 97.9; O2SAT 98
[2017-10-20] MEDS: ATORVASTATIN 40 MG TAB PO SCH (21:00)
[2017-10-20] MEDS ORDERED: risperiDONE 1 MG TAB PO SCH (21:00)
[2017-10-20] MEDS: DOCUSATE SODIUM 100 MG CAP PO SCH (21:00)
[2017-10-20] MEDS: TAMSULOSIN HCL 0.4 MG CAP PO SCH (21:00)
--- NOTE | 2017-10-20 22:00 | HHI.PYPN ---
Subjective Remarks Patient seen for follow up; chart reviewed. Discussion nursing staff reported the patient slept better, having wanted to call police and he is feels that he is from his , but no aggressive behaviors and compliant with treatment. Patient was found heavily on the unit, states he is feeling "fine" reports sleeping well, no difficulties eating or drinking, no problem bowel movement. Patient states that his has all the money that she has all the control and mentioning that she has his "documents". Patient denies any perceptual disturbances. Patient continues with paranoid bizarre delusions of invasion by the [place] Review of Systems Except as stated in HPI: all other systems reviewed are Neg Mental Status Examination Appearance: Appropriate Consciousness: Alert Orientation: x4 Motor Activity: Normal gait Speech: Unremarkable Language: Adequate Fund of Knowledge: Adequate Attention and Concentration: Adequate Memory: Unremarkable Mood: Appropriate Affect: Appropriate Thought Process & Associations: Intact Thought Content: Delusional Hallucination Type: None Delusion Type: Bizarre, Paranoid, Other (Persecutory) Suicidal Ideation: No Suicidal Plan: No Suicidal Intention: No Homicidal Ideation: No Homicidal Plan: No Homicidal Intention: No Insight: Poor Judgment: Poor Results Labs Labs reviewed Test 10/20/17 08:12 Blood Urea Nitrogen 26 MG/DL Creatinine 1.41 MG/DL Random Glucose 152 MG/DL Calcium Level 9.0 MG/DL Sodium Level 143 MEQ/L Potassium Level 3.5 MEQ/L Chloride Level 104 MEQ/L Carbon Dioxide Level 28.9 MEQ/L Anion Gap 10 MEQ/L Estimat Glomerular Filtration Rate 50 ML/MIN Date/Time Source Procedure Growth Status 10/17/17 15:30 Urine Catheterized Urine Urine Culture - Final Complete Vitals/IOs Vital Signs Date Time Temp Pulse Resp B/P (MAP) Pulse Ox O2 Delivery O2 Flow Rate FiO2 10/20/17 18:21 97.9 63 18 169/98 (121) 98 10/18/17 19:08 Room Air Intake and Output 10/20/17 10/20/17 10/21/17 08:00 16:00 00:00 Intake Total 360 ml 240 ml 240 ml Balance 360 ml 240 ml 240 ml Assessment & Plan Problem List: (1) Unspecified psychosis ICD Codes: F29 - Unspecified psychosis not due to a substance or known physiological condition Assessment & Plan Patient this time continues with bizarre and persecutory delusions as well as paranoia from [place] invasion. Patient also paranoid with . We will increase Risperdal to 1 mg a.m./1.5 mg at bedtime with upward titration as needed for psychosis. Continue rest of medications. Continue to monitor mood and behavior. Discharge planning in progress. Justification for Cont. Inpt. At risk of further decompensation at low level of care. Discharge Planning Patient to return back to his residence when psychiatrically stable. Billy Andres MD October 20, 2017 22:00
[2017-10-21] MEDS: LORazepam 0.5 MG TAB PO PRN ×2 (03:43→14:08)
[2017-10-21 05:52] VITALS: BP 163/86; PULSE 60; RESP 18; TEMP 97.9; O2SAT 97
[2017-10-21 08:34] LABS: CALCIUM 8.7 MG/DL (8.5-10.1); CREATININE 1.24 MG/DL (0.60-1.30)
[2017-10-21] MEDS: APIXABAN 5 MG TABLET PO SCH ×2 (08:39→22:11)
[2017-10-21] MEDS: FAMOTIDINE 20 MG TAB PO SCH ×2 (08:40→20:36)
[2017-10-21] MEDS: FINASTERIDE 5 MG TAB PO SCH (08:40)
[2017-10-21] MEDS: CARVEDILOL 3.125 MG TAB PO SCH ×2 (08:40→20:36)
[2017-10-21] MEDS: risperiDONE 1 MG TAB PO SCH (08:40)
[2017-10-21] MEDS: CHOLECALCIFEROL (VIT D3) 1000 UNIT TAB PO SCH (08:40)
[2017-10-21] MEDS ORDERED: amLODIPine BESYLATE 5 MG TAB PO ONE (15:45)
--- NOTE | 2017-10-21 17:01 | HHI.PYPN ---
Subjective Remarks Patient seen for follow-up, chart reviewed. Discussed with nursing staff reported that patient continued to be very paranoid, worried about bombs sent here to the building, continues wanting to call the police and now does not want anything to do with his . Patient was found and ablated on unit B, cooperative. Patient spent some time recalling his upbringing in the [place] stating how his 's father was ex [employer] agent and he was shot by the government and that her son (his step son) had been involved with the wrong people and he is also involved in putting bombs everywhere. Patient states that he had noticed a box which was a "heavy bomb" in his home that his son had. Patient reports his mood is "happy", reports eating and drinking well with no difficulty or bowel movement. Patient states that he was bit upset that his came to visit and felt that she did not recognize/acknowledge him. Review of Systems Except as stated in HPI: all other systems reviewed are Neg Mental Status Examination Appearance: Appropriate Consciousness: Alert, Vigilant Orientation: x4 Motor Activity: Normal gait Speech: Unremarkable Language: Adequate Fund of Knowledge: Adequate Attention and Concentration: Adequate Memory: Unremarkable Mood: Appropriate Affect: Appropriate Thought Process & Associations: Intact Thought Content: Delusional Hallucination Type: None Delusion Type: Bizarre, Paranoid, Other (Persecutory) Suicidal Ideation: No Suicidal Plan: No Suicidal Intention: No Homicidal Ideation: No Homicidal Plan: No Homicidal Intention: No Insight: Poor Judgment: Poor Results Labs Labs reviewed Test 10/21/17 07:21 Blood Urea Nitrogen 25 MG/DL Creatinine 1.24 MG/DL Random Glucose 132 MG/DL Calcium Level 8.7 MG/DL Sodium Level 142 MEQ/L Potassium Level 3.9 MEQ/L Chloride Level 106 MEQ/L Carbon Dioxide Level 31.0 MEQ/L Anion Gap 5 MEQ/L Estimat Glomerular Filtration Rate 58 ML/MIN Date/Time Source Procedure Growth Status 10/17/17 15:30 Urine Catheterized Urine Urine Culture - Final Complete Vitals/IOs Vital Signs Date Time Temp Pulse Resp B/P (MAP) Pulse Ox O2 Delivery O2 Flow Rate FiO2 10/21/17 05:52 97.9 60 18 163/86 (111) 97 10/18/17 19:08 Room Air Intake and Output 10/21/17 10/21/17 10/22/17 08:00 16:00 00:00 Intake Total 600 ml Balance 600 ml Assessment & Plan Problem List: (1) Unspecified psychosis ICD Codes: F29 - Unspecified psychosis not due to a substance or known physiological condition Assessment & Plan Patient this time continues with persistent paranoid and persecutory delusions. We will increase Risperdal to 1 mg a.m./2 mg at bedtime for psychosis. Continue monitor mood and behavior. Discharge planning in progress. Justification for Cont. Inpt. At risk of further decompensation a lower level of care. Discharge Planning Patient returned back to his residence when psychiatrically stable. Billy Andres MD October 21, 2017 17:01
--- NOTE | 2017-10-21 17:33 | HHI.PR ---
Subjective Remarks Follow-up for RENARD, HTN. The patient is seen in the day room. He has no medical complaints. Denies any lightheadedness, dizziness, chest pain, shortness of breath, or abdominal complaints. Labs improving. Vital signs reviewed, BP still elevated at times. Discussed with RN, patient did drink good amount of water yesterday, but still refused IV fluids. Objective Vitals Vital Signs Date Time Temp Pulse Resp B/P (MAP) Pulse Ox O2 Delivery O2 Flow Rate FiO2 10/21/17 05:52 97.9 60 18 163/86 (111) 97 10/20/17 18:21 97.9 63 18 169/98 (121) 98 I/O 10/20/17 10/20/17 10/20/17 10/21/17 10/21/17 10/21/17 07:00 15:00 23:00 07:00 15:00 23:00 Intake Total 120 ml 480 ml 240 ml 600 ml Balance 120 ml 480 ml 240 ml 600 ml Intake Oral 120 ml 480 ml 240 ml 600 ml Result Diagram: 10/17/17 1530 10/21/17 0721 Imaging Last Impressions Head CT 10/17/171516 Signed Impressions: Service Date/Time: Tuesday, October 17, 2017 15:25 - CONCLUSION: 1. 2.7 x 2.0 cm peripherally calcified left posterior parietal extra-axial mass near the vertex likely reflecting meningioma. Further characterization may be performed with contrast-enhanced MRI exam on an outpatient basis if this has not been previously evaluated. 2. Encephalomalacia in the left posterior frontal high convexities near vertex, left occipital lobe, and right frontal mid to high convexities consistent with prior infarcts. 3. Otherwise, no acute intracranial abnormality. Carlos Dougherty MD Chest X-Ray 10/17/177 Signed Impressions: Service Date/Time: Tuesday, October 17, 2017 15:34 - CONCLUSION: 1. Minimal bibasilar airspace disease, presumably atelectasis. 2. Otherwise, no acute abnormality. Carlos Dougherty MD Objective Remarks GENERAL: Well-nourished, well-developed male patient in NAD. Lying in bed. SKIN: Warm and dry. No rash. HEENT: Normocephalic. Atraumatic. Pupils equal and round. Mucous membranes pink and moist. CARDIOVASCULAR: Regular rate and rhythm. No murmur appreciated. RESPIRATORY: No accessory muscle use. Clear to auscultation. Breath sounds equal bilaterally. GASTROINTESTINAL: Abdomen soft, non-tender, nondistended. Normoactive bowel sounds x4. MUSCULOSKELETAL: No obvious deformities. Extremities without clubbing, cyanosis , or edema. NEUROLOGICAL: Awake and alert. No obvious cranial nerve deficits. Motor grossly within normal limits. Normal speech. Medications and IVs Current Medications Medications (Trade) Dose Ordered Sig/Maruks Route Start Time Stop Time Status Last Admin (NS Flush) 2 ml UNSCH PRN IV FLUSH 10/17/17 15:30 (Tylenol) 650 mg Q4H PRN PO 10/18/17 19:15 (Milk Of Magnesia Liq) 30 ml DAILY PRN PO 10/18/17 19:15 (Mag-Al Plus Susp Liq) 30 ml Q6H PRN PO 10/18/17 19:15 (Pill Splitter) 1 ea UNSCH PRN OTHER 10/18/17 22:30 (Eliquis) 5 mg BID PO 10/19/17 21:00 10/21/17 08:39 (Lipitor) 40 mg HS PO 10/19/17 21:00 10/20/17 21:00 (Colace) 100 mg HS PO 10/19/17 21:00 10/20/17 21:00 (Pepcid) 20 mg BID PO 10/19/17 21:00 10/21/17 08:40 (Proscar) 5 mg DAILY PO 10/20/17 09:00 10/21/17 08:40 (Flomax) 0.4 mg HS PO 10/19/17 21:00 10/20/17 21:00 (Benadryl) 50 mg HS PRN PO 10/19/17 12:15 (Ativan) 0.5 mg Q6H PRN PO 10/19/17 12:15 10/21/17 14:08 (Vitamin D3) 1,000 units DAILY PO 10/20/17 09:00 10/21/17 08:40 (Coreg) 3.125 mg BID PO 10/19/17 21:00 10/21/17 08:40 (risperDAL) 1 mg DAILY PO 10/21/17 09:00 10/21/17 08:40 (risperDAL) 2 mg HS PO 10/21/17 21:00 (Norvasc) 5 mg DAILY PO 10/22/17 09:00 A/P Problem List: (1) Urinary tract infection ICD Code: N39.0 - Urinary tract infection, site not specified Status: Acute Assessment and Plan 72-year-old male with history of CVA x3, CAD s/p CABG October2016, HTN, HLD, nonmalignant brain tumor, neurogenic bladder with indwelling catheter, admitted under [facility] to medical psychiatric unit for bizarre behavior, delusions, escaping his home. Hospitalists consulted for medical management of UTI diagnosed on admission. Psychosis: suspect underlying psychiatric illness. Rule out toxic/metabolic etiologies. -Head CT images reviewed, shows 2.72.0 cm calcified left posterior parietal extra-axial mass likely meningioma; encephalomalacia left posterior frontal high convexities, left occipital lobe, and right frontal mid to high convexities consistent with prior infarcts; no acute intracranial findings -UA abnormal however urine culture with likely contaminants -TSH wnl, ammonia wnl -Ordered IVF hydration however patient refused x2days, encourage oral intake -further management per psychiatry RENARD: Cr increased from 1.11 to 1.52. Suspect secondary to dehydration vs iatrogenic from antihypertensives given -avoid nephrotoxins -hold patient's lisinopril for now -monitor renal function -patient refused IV fluids x2days, strongly encouraged oral intake, RN reports good amount of fluid intake, repeat BMP with some improvement, Cr 1.24 -continue to encourage oral intake now that patient is moved from med psych to inpatient psych, and will recheck BMP on 10/23 Abnormal UA: patient has Solis catheter in place secondary to neurogenic bladder. -UA abnormal however urine culture with mixed suzy, probable contaminants -discontinued antibiotics -consider repeat UA if develops fever or leukocytosis HTN/HLD/CAD s/p CABG: chronic -continue patient's home medications including statin, coreg -hold patient's lisinopril with RENARD as above -monitor BP, adjust antihypertensives as needed -10/21 BP still elevated, will start amlodipine 5mg daily, continue to monitor Neurogenic Bladder with Indwelling Solis Catheter: chronic, patient reports he' s had a Solis since his CABG back in October2016 -continue patient's flomax and finasteride -continue outpatient follow up Vitamin D Deficiency: Vit D level 16 -given ergocalciferol 50,000u x1 -continue on cholecalciferol 1000u daily DVT Prophylaxis: ambulation Discharge Planning Will continue to follow blood pressure and BMP for now. If stable, plan to sign off in 2 days. Problem Qualifiers (1) Urinary tract infection: Qualified Codes: T83.511A - Infection and inflammatory reaction due to indwelling urethral catheter, initial encounter; N39.0 - Urinary tract infection , site not specified Carolyn Naylor PA-C October 21, 2017 5:33 pm
[2017-10-21 18:13] VITALS: BP 161/94; PULSE 58; RESP 17; TEMP 97.7
[2017-10-21 20:00] VITALS: BP 138/79; PULSE 97; RESP 20
[2017-10-21] MEDS: TAMSULOSIN HCL 0.4 MG CAP PO SCH (20:36)
[2017-10-21] MEDS: DOCUSATE SODIUM 100 MG CAP PO SCH (20:36)
[2017-10-21] MEDS: ATORVASTATIN 40 MG TAB PO SCH (20:37)
[2017-10-21] MEDS ORDERED: risperiDONE 1 MG TAB PO SCH (21:00)
[2017-10-22 05:47] VITALS: BP 131/83; PULSE 91; RESP 17; TEMP 97.6; O2SAT 96
[2017-10-22] MEDS: FAMOTIDINE 20 MG TAB PO SCH ×2 (08:48→20:48)
[2017-10-22] MEDS: APIXABAN 5 MG TABLET PO SCH ×2 (08:48→20:47)
[2017-10-22] MEDS: risperiDONE 1 MG TAB PO SCH ×2 (08:49→20:48)
[2017-10-22] MEDS: CHOLECALCIFEROL (VIT D3) 1000 UNIT TAB PO SCH (08:49)
[2017-10-22] MEDS: amLODIPine BESYLATE 5 MG TAB PO SCH (08:49)
[2017-10-22] MEDS: CARVEDILOL 3.125 MG TAB PO SCH ×2 (08:49→20:47)
[2017-10-22] MEDS: FINASTERIDE 5 MG TAB PO SCH (09:00)
--- NOTE | 2017-10-22 13:52 | HHI.PYPN ---
Subjective Remarks Patient seen for follow, chart reviewed. Discussion nursing staff reported that continues with these bizarre delusions and when asked about why he locked himself in the garage told nurse that his did not realize that she can use a cell phone. Patient was found lying hospital bed noted B, cooperative. Patient states that his had come "to the hotel" as he appears to believe he is currently in a hotel. He mentions believing that he took his car out of his home and put into a parking lot today. Patient noted to be frustrated as he states he could not get out of the "hotel" because "they could not confirm who we are" referring to police her current officials. Patient continues to believe that is his has control over his documents which he states will not give him. Review of Systems Except as stated in HPI: all other systems reviewed are Neg Mental Status Examination Appearance: Appropriate Consciousness: Alert, Vigilant Orientation: x4 Motor Activity: Normal gait Speech: Unremarkable Language: Adequate Fund of Knowledge: Adequate Attention and Concentration: Adequate Memory: Unremarkable Mood: Appropriate Affect: Appropriate Thought Process & Associations: Intact Thought Content: Delusional Hallucination Type: None Delusion Type: Bizarre, Paranoid, Other (Persecutory) Suicidal Ideation: No Suicidal Plan: No Suicidal Intention: No Homicidal Ideation: No Homicidal Plan: No Homicidal Intention: No Insight: Poor Judgment: Poor Results Labs Date/Time Source Procedure Growth Status 10/17/17 15:30 Urine Catheterized Urine Urine Culture - Final Complete Vitals/IOs Vital Signs Date Time Temp Pulse Resp B/P (MAP) Pulse Ox O2 Delivery O2 Flow Rate FiO2 10/22/17 05:47 97.6 91 17 131/83 (99) 96 10/18/17 19:08 Room Air Intake and Output 10/22/17 10/22/17 10/23/17 08:00 16:00 00:00 Intake Total 240 ml 360 ml Balance 240 ml 360 ml Assessment & Plan Problem List: (1) Unspecified psychosis ICD Codes: F29 - Unspecified psychosis not due to a substance or known physiological condition Assessment & Plan Patient this time continues with paranoid, persecutory and bizarre delusions. Patient had previous UTI will repeat UA for follow-up. We will increase risperidone to 2 mg p.o. twice daily for psychosis. We will continue to monitor with behavior. Discharge planning in progress. Justification for Cont. Inpt. At risk of further decompensation at lower level care. Billy Andres MD October 22, 2017 13:51
[2017-10-22 14:13] LABS: BILIRUBIN, URINE NEG (NEG); BLOOD, URINE MOD (NEG); GLUCOSE,URINE 250 mg/dL (NEG); KETONE, URINE NEG (NEG); NITRITE,URINE POS (NEG); URINE COLOR YELLOW (YELLW/STRAW); URINE LEUKOCYTE ESTERASE LARGE (NEG)
[2017-10-22 14:24] LABS: BACTERIA, URINE MANY /hpf; WHITE BLOOD CELL CLUMPS MANY
--- NOTE | 2017-10-22 16:54 | HHI.PR ---
Subjective Remarks Follow up for RENARD, HTN. The patient is seen eating his dinner. He states he is upset because he doesn't have any documents to prove who he is. 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 He otherwise denies any medical complaints including no headache, fever/chills, chest pain, shortness of breath, abdominal or urinary complaints. Vital signs reviewed and stable, BP improved. Objective Vitals Vital Signs Date Time Temp Pulse Resp B/P (MAP) Pulse Ox O2 Delivery O2 Flow Rate FiO2 10/22/17 05:47 97.6 91 17 131/83 (99) 96 10/21/17 20:00 97 20 138/79 (98) 10/21/17 18:13 97.7 58 17 161/94 (116) I/O 10/21/17 10/21/17 10/21/17 10/22/17 10/22/17 10/22/17 07:00 15:00 23:00 07:00 15:00 23:00 Intake Total 600 ml 0 ml 240 ml 360 ml Balance 600 ml 0 ml 240 ml 360 ml Intake Oral 600 ml 0 ml 360 ml Oral Supplement 240 ml Result Diagram: 10/21/17 0721 Imaging Last Impressions Head CT 10/17/17 1517 Signed Impressions: Service Date/Time: Tuesday, October 17, 2017 15:25 - CONCLUSION: 1. 2.7 x 2.0 cm peripherally calcified left posterior parietal extra-axial mass near the vertex likely reflecting meningioma. Further characterization may be performed with contrast-enhanced MRI exam on an outpatient basis if this has not been previously evaluated. 2. Encephalomalacia in the left posterior frontal high convexities near vertex, left occipital lobe, and right frontal mid to high convexities consistent with prior infarcts. 3. Otherwise, no acute intracranial abnormality. Carlos Dougherty MD Chest X-Ray 10/17/17 1517 Signed Impressions: Service Date/Time: Tuesday, October 17, 2017 15:34 - CONCLUSION: 1. Minimal bibasilar airspace disease, presumably atelectasis. 2. Otherwise, no acute abnormality. Carlos Dougherty MD Objective Remarks GENERAL: Well-nourished, well-developed male patient in NAD. Lying in bed eating dinner. SKIN: Warm and dry. No rash. HEENT: Normocephalic. Atraumatic. Pupils equal and round. Mucous membranes pink and moist. CARDIOVASCULAR: Regular rate and rhythm. No murmur appreciated. RESPIRATORY: No accessory muscle use. Clear to auscultation. Breath sounds equal bilaterally. GASTROINTESTINAL: Abdomen soft, non-tender, nondistended. Normoactive bowel sounds x4. MUSCULOSKELETAL: No obvious deformities. Extremities without clubbing, cyanosis , or edema. NEUROLOGICAL: Awake and alert. No obvious cranial nerve deficits. Motor grossly within normal limits. Normal speech. Medications and IVs Current Medications Medications (Trade) Dose Ordered Sig/Markus Route Start Time Stop Time Status Last Admin (NS Flush) 2 ml UNSCH PRN IV FLUSH 10/17/17 15:30 (Tylenol) 650 mg Q4H PRN PO 10/18/17 19:15 (Milk Of Magnesia Liq) 30 ml DAILY PRN PO 10/18/17 19:15 (Mag-Al Plus Susp Liq) 30 ml Q6H PRN PO 10/18/17 19:15 (Pill Splitter) 1 ea UNSCH PRN OTHER 10/18/17 22:30 (Eliquis) 5 mg BID PO 10/19/17 21:00 10/22/17 08:48 (Lipitor) 40 mg HS PO 10/19/17 21:00 10/21/17 20:37 (Colace) 100 mg HS PO 10/19/17 21:00 10/21/17 20:36 (Pepcid) 20 mg BID PO 10/19/17 21:00 10/22/17 08:48 (Proscar) 5 mg DAILY PO 10/20/17 09:00 10/21/17 08:40 (Flomax) 0.4 mg HS PO 10/19/17 21:00 10/21/17 20:36 (Benadryl) 50 mg HS PRN PO 10/19/17 12:15 (Ativan) 0.5 mg Q6H PRN PO 10/19/17 12:15 10/21/17 14:08 (Vitamin D3) 1,000 units DAILY PO 10/20/17 09:00 10/22/17 08:49 (Coreg) 3.125 mg BID PO 10/19/17 21:00 10/22/17 08:49 (Norvasc) 5 mg DAILY PO 10/22/17 09:00 10/22/17 08:49 (risperDAL) 2 mg BID PO 10/22/17 21:00 A/P Problem List: (1) Urinary tract infection ICD Code: N39.0 - Urinary tract infection, site not specified Status: Acute Assessment and Plan 72-year-old male with history of CVA x3, CAD s/p CABG October2016, HTN, HLD, nonmalignant brain tumor, neurogenic bladder with indwelling catheter, admitted under [facility] to medical psychiatric unit for bizarre behavior, delusions, escaping his home. Hospitalists consulted for medical management of UTI diagnosed on admission. Psychosis: suspect underlying psychiatric illness. Rule out toxic/metabolic etiologies. -Head CT images reviewed, shows 2.72.0 cm calcified left posterior parietal extra-axial mass likely meningioma; encephalomalacia left posterior frontal high convexities, left occipital lobe, and right frontal mid to high convexities consistent with prior infarcts; no acute intracranial findings -UA abnormal however urine culture with likely contaminants -TSH wnl, ammonia wnl -Ordered IVF hydration however patient refused x2days, encouraged oral intake -further management per psychiatry RENARD: Cr increased from 1.11 to 1.52. Suspect secondary to dehydration vs iatrogenic from antihypertensives given -avoid nephrotoxins -hold patient's lisinopril for now -monitor renal function -patient refused IV fluids x2days, strongly encouraged oral intake, RN reports good amount of fluid intake, repeat BMP with some improvement, Cr 1.24 -continue to encourage oral intake and will recheck BMP on 10/23 Abnormal UA: patient has Solis catheter in place secondary to neurogenic bladder. -UA abnormal however urine culture with mixed suzy, probable contaminants -discontinued antibiotics -consider repeat UA if develops fever or leukocytosis -repeat UA done 10/22 also abnormal, will await culture results as patient is afebrile and asymptomatic HTN/HLD/CAD s/p CABG: chronic -continue patient's home medications including statin, coreg -hold patient's lisinopril with RENARD as above -monitor BP, adjust antihypertensives as needed -BP still elevated, started on amlodipine 5mg daily with good response -continue to monitor Neurogenic Bladder with Indwelling Solis Catheter: chronic, patient reports he' s had a Solis since his CABG back in October2016 -continue patient's flomax and finasteride -continue outpatient follow up Vitamin D Deficiency: Vit D level 16 -given ergocalciferol 50,000u x1 -continue on cholecalciferol 1000u daily DVT Prophylaxis: ambulation Discharge Planning Will continue to follow blood pressure and BMP for now. If stable, plan to sign off in 1-2 days. Problem Qualifiers (1) Urinary tract infection: Qualified Codes: T83.511A - Infection and inflammatory reaction due to indwelling urethral catheter, initial encounter; N39.0 - Urinary tract infection , site not specified Carolyn Naylor PA-C October 22, 2017 4:54 pm
[2017-10-22 18:05] VITALS: BP 145/82; PULSE 82; RESP 16; TEMP 97.8; O2SAT 97
[2017-10-22] MEDS: LORazepam 0.5 MG TAB PO PRN (18:50)
[2017-10-22] MEDS: TAMSULOSIN HCL 0.4 MG CAP PO SCH (20:47)
[2017-10-22] MEDS: DOCUSATE SODIUM 100 MG CAP PO SCH (20:47)
[2017-10-22] MEDS: ATORVASTATIN 40 MG TAB PO SCH (20:48)
[2017-10-23 06:21] VITALS: BP 172/92; PULSE 68; RESP 18; TEMP 97.4; O2SAT 95
[2017-10-23 08:21] LABS: BASOPHIL % 0.5 % (0.0-2.0); EOSINOPHIL # 0.1 TH/MM3 (0-0.4); EOSINOPHIL % 1.7 % (0.0-4.0); HEMATOCRIT 39.6 % (39.0-51.0); HEMOGLOBIN 13.2 GM/DL (13.0-17.0); LYMPH % 21.4 % (9.0-44.0); LYMPHOCYTE # 1.6 TH/MM3 (1.0-4.8); MEAN CELL VOLUME 94.3 FL (80.0-100.0); MEAN CORPUSCULAR HEMOGLOBIN 31.4 PG (27.0-34.0); MEAN CORPUSCULAR HGB CONC 33.3 % (32.0-36.0); MEAN PLATELET VOLUME 10.2 FL (7.0-11.0); MONO % 9.2 % (0.0-8.0); MONOCYTE # 0.7 TH/MM3 (0-0.9); NEUT % 67.2 % (16.0-70.0); PLATELET COUNT 206 TH/MM3 (150-450); RED CELL DISTRIBUTION WIDTH 14.1 % (11.6-17.2); WHITE BLOOD COUNT 7.4 TH/MM3 (4.0-11.0)
[2017-10-23 08:38] LABS: BICARBONATE 29.3 MEQ/L (21.0-32.0); CALCIUM 8.8 MG/DL (8.5-10.1); CREATININE 1.08 MG/DL (0.60-1.30)
[2017-10-23] MEDS: APIXABAN 5 MG TABLET PO SCH ×2 (09:00→20:50)
[2017-10-23] MEDS: FAMOTIDINE 20 MG TAB PO SCH ×2 (09:38→20:49)
[2017-10-23] MEDS: FINASTERIDE 5 MG TAB PO SCH (09:38)
[2017-10-23] MEDS: CHOLECALCIFEROL (VIT D3) 1000 UNIT TAB PO SCH (09:38)
[2017-10-23] MEDS: risperiDONE 1 MG TAB PO SCH ×2 (09:38→20:49)
[2017-10-23] MEDS: amLODIPine BESYLATE 5 MG TAB PO SCH (09:39)
[2017-10-23] MEDS: CARVEDILOL 3.125 MG TAB PO SCH ×2 (09:39→20:49)
--- NOTE | 2017-10-23 13:12 | HHI.PR ---
Subjective Remarks Follow up for RENARD, HTN. The patient denies any medical complaints including no headache, chest pain, shortness of breath, or abdominal complaints. He is tolerating oral intake. BP slightly elevated this morning. RN reports patient continues to hallucinate. No other issues reported. Objective Vitals Vital Signs Date Time Temp Pulse Resp B/P (MAP) Pulse Ox O2 Delivery O2 Flow Rate FiO2 10/23/17 06:21 97.4 68 18 172/92 (118) 95 10/22/17 18:05 97.8 82 16 145/82 (103) 97 I/O 10/22/17 10/22/17 10/22/17 10/23/17 10/23/17 10/23/17 07:00 15:00 23:00 07:00 15:00 23:00 Intake Total 240 ml 360 ml 1440 ml 600 ml Balance 240 ml 360 ml 1440 ml 600 ml Intake Oral 360 ml 1440 ml 600 ml Oral Supplement 240 ml # Voids 2 2 # Bowel Movements 1 Result Diagram: 10/23/17 0726 10/23/17 07 Imaging Last Impressions Head CT 10/17/171516 Signed Impressions: Service Date/Time: Tuesday, October 17, 2017 15:25 - CONCLUSION: 1. 2.7 x 2.0 cm peripherally calcified left posterior parietal extra-axial mass near the vertex likely reflecting meningioma. Further characterization may be performed with contrast-enhanced MRI exam on an outpatient basis if this has not been previously evaluated. 2. Encephalomalacia in the left posterior frontal high convexities near vertex, left occipital lobe, and right frontal mid to high convexities consistent with prior infarcts. 3. Otherwise, no acute intracranial abnormality. Carlos Dougherty MD Chest X-Ray 10/17/171516 Signed Impressions: Service Date/Time: Tuesday, October 17, 2017 15:34 - CONCLUSION: 1. Minimal bibasilar airspace disease, presumably atelectasis. 2. Otherwise, no acute abnormality. Carlos Dougherty MD Objective Remarks GENERAL: Well-nourished, well-developed male patient in NAD. Lying in bed. SKIN: Warm and dry. No rash. HEENT: Normocephalic. Atraumatic. Pupils equal and round. Mucous membranes pink and moist. CARDIOVASCULAR: Regular rate and rhythm. No murmur appreciated. RESPIRATORY: No accessory muscle use. Clear to auscultation. Breath sounds equal bilaterally. GASTROINTESTINAL: Abdomen soft, non-tender, nondistended. Normoactive bowel sounds x4. MUSCULOSKELETAL: No obvious deformities. Extremities without clubbing, cyanosis , or edema. NEUROLOGICAL: Awake and alert. No obvious cranial nerve deficits. Motor grossly within normal limits. Normal speech. Medications and IVs Current Medications Medications (Trade) Dose Ordered Sig/Markus Route Start Time Stop Time Status Last Admin (NS Flush) 2 ml UNSCH PRN IV FLUSH 10/17/17 15:30 (Tylenol) 650 mg Q4H PRN PO 10/18/17 19:15 (Milk Of Magnesia Liq) 30 ml DAILY PRN PO 10/18/17 19:15 (Mag-Al Plus Susp Liq) 30 ml Q6H PRN PO 10/18/17 19:15 (Pill Splitter) 1 ea UNSCH PRN OTHER 10/18/17 22:30 (Eliquis) 5 mg BID PO 10/19/17 21:00 10/23/17 09:00 (Lipitor) 40 mg HS PO 10/19/17 21:00 10/22/17 20:48 (Colace) 100 mg HS PO 10/19/17 21:00 10/22/17 20:47 (Pepcid) 20 mg BID PO 10/19/17 21:00 10/23/17 09:38 (Proscar) 5 mg DAILY PO 10/20/17 09:00 10/23/17 09:38 (Flomax) 0.4 mg HS PO 10/19/17 21:00 10/22/17 20:47 (Benadryl) 50 mg HS PRN PO 10/19/17 12:15 (Ativan) 0.5 mg Q6H PRN PO 10/19/17 12:15 10/22/17 18:50 (Vitamin D3) 1,000 units DAILY PO 10/20/17 09:00 10/23/17 09:38 (Coreg) 3.125 mg BID PO 10/19/17 21:00 10/23/17 09:39 (Norvasc) 5 mg DAILY PO 10/22/17 09:00 10/23/17 09:39 (risperDAL) 2 mg BID PO 10/22/17 21:00 10/23/17 09:38 A/P Problem List: (1) Urinary tract infection ICD Code: N39.0 - Urinary tract infection, site not specified Status: Acute Assessment and Plan 72-year-old male with history of CVA x3, CAD s/p CABG October2016, HTN, HLD, nonmalignant brain tumor, neurogenic bladder with indwelling catheter, admitted under [facility] to medical psychiatric unit for bizarre behavior, delusions, escaping his home. Hospitalists consulted for medical management of UTI diagnosed on admission. Psychosis: suspect underlying psychiatric illness. Rule out toxic/metabolic etiologies. -Head CT images reviewed, shows 2.72.0 cm calcified left posterior parietal extra-axial mass likely meningioma; encephalomalacia left posterior frontal high convexities, left occipital lobe, and right frontal mid to high convexities consistent with prior infarcts; no acute intracranial findings -UA abnormal, see below -TSH wnl, ammonia wnl -Ordered IVF hydration however patient refused x2days, encouraged oral intake -further management per psychiatry RENARD: Cr increased from 1.11 to 1.52. Suspect secondary to dehydration vs iatrogenic from antihypertensives given -avoid nephrotoxins -hold patient's lisinopril for now -monitor renal function -patient refused IV fluids x2days, strongly encouraged oral intake, RN reports good amount of fluid intake, repeat BMP with some improvement, Cr 1.24 -continue to encourage oral intake -10/23 repeat BMP continues to show improvement with Cr 1.08 UTI: patient has Solis catheter in place secondary to neurogenic bladder. -initial UA from 10/17 abnormal however urine culture with mixed suzy, probable contaminants, discontinued antibiotics -repeat UA done 10/22 also abnormal, preliminary urine culture with gram negative rods -will give cefuroxime 500mg bid x7days, exchange Solis catheter, await final urine C&S HTN/HLD/CAD s/p CABG: chronic -continue patient's home medications including statin, coreg -hold patient's lisinopril with RENARD as above -monitor BP, adjust antihypertensives as needed -BP still elevated, started on amlodipine 5mg daily with good response -continue to monitor Neurogenic Bladder with Indwelling Solis Catheter: chronic, patient reports he' s had a Solis since his CABG back in October2016 -continue patient's flomax and finasteride -continue outpatient follow up Vitamin D Deficiency: Vit D level 16 -given ergocalciferol 50,000u x1 -continue on cholecalciferol 1000u daily DVT Prophylaxis: ambulation Discharge Planning Continue to follow urine culture, adjust antibiotics after sensitivities finalized. Continue to monitor blood pressure and renal function. Problem Qualifiers (1) Urinary tract infection: Qualified Codes: T83.511A - Infection and inflammatory reaction due to indwelling urethral catheter, initial encounter; N39.0 - Urinary tract infection , site not specified Carolyn Naylor PA-C October 23, 2017 1:12 pm
[2017-10-23] MEDS: CEFUROXIME AXETIL 500 MG TAB PO SCH ×2 (15:00→20:49)
--- NOTE | 2017-10-23 16:05 | HHI.PYPN ---
Subjective Remarks Patient was seen and case discussed with nursing. Interview conducted in Albanian. Patient has cognitive deficits and has difficulty understanding and responding appropriately. Last night per nursing he had paranoia that there were bombs on the unit. Patient could not tell me why today. He was pacing earlier. Behaving well. Mental Status Examination Appearance: Appropriate Consciousness: Alert, Vigilant Orientation: x4 Motor Activity: Normal gait Speech: Unremarkable Language: Adequate Fund of Knowledge: Adequate Attention and Concentration: Adequate Memory: Unremarkable Mood: Appropriate Affect: Appropriate Thought Process & Associations: Intact Thought Content: Delusional Hallucination Type: None Delusion Type: Bizarre, Paranoid, Other (Persecutory) Suicidal Ideation: No Suicidal Plan: No Suicidal Intention: No Homicidal Ideation: No Homicidal Plan: No Homicidal Intention: No Insight: Poor Judgment: Poor Results Labs Test 10/23/17 07:26 White Blood Count 7.4 TH/MM3 Red Blood Count 4.20 MIL/MM3 Hemoglobin 13.2 GM/DL Hematocrit 39.6 % Mean Corpuscular Volume 94.3 FL Mean Corpuscular Hemoglobin 31.4 PG Mean Corpuscular Hemoglobin Concent 33.3 % Red Cell Distribution Width 14.1 % Platelet Count 206 TH/MM3 Mean Platelet Volume 10.2 FL Neutrophils (%) (Auto) 67.2 % Lymphocytes (%) (Auto) 21.4 % Monocytes (%) (Auto) 9.2 % Eosinophils (%) (Auto) 1.7 % Basophils (%) (Auto) 0.5 % Neutrophils # (Auto) 5.0 TH/MM3 Lymphocytes # (Auto) 1.6 TH/MM3 Monocytes # (Auto) 0.7 TH/MM3 Eosinophils # (Auto) 0.1 TH/MM3 Basophils # (Auto) 0.0 TH/MM3 CBC Comment DIFF FINAL Differential Comment Blood Urea Nitrogen 20 MG/DL Creatinine 1.08 MG/DL Random Glucose 124 MG/DL Calcium Level 8.8 MG/DL Sodium Level 144 MEQ/L Potassium Level 4.1 MEQ/L Chloride Level 106 MEQ/L Carbon Dioxide Level 29.3 MEQ/L Anion Gap 9 MEQ/L Estimat Glomerular Filtration Rate 68 ML/MIN Date/Time Source Procedure Growth Status 10/22/17 13:53 Urine Catheterized Urine Urine Culture - Preliminary Gram Negative Toni Resulted Vitals/IOs Vital Signs Date Time Temp Pulse Resp B/P (MAP) Pulse Ox O2 Delivery O2 Flow Rate FiO2 10/23/17 06:21 97.4 68 18 172/92 (118) 95 Intake and Output 10/23/17 10/23/17 10/24/17 08:00 16:00 00:00 Intake Total 360 ml 240 ml Balance 360 ml 240 ml Assessment & Plan Problem List: (1) Unspecified psychosis ICD Codes: F29 - Unspecified psychosis not due to a substance or known physiological condition Assessment & Plan Continue current treatment plan Justification for Cont. Inpt. Patient would decompensate in a less restrictive setting Gildardo Espinoza DO October 23, 2017 16:05
[2017-10-23 18:00] VITALS: BP 154/80; PULSE 52; RESP 18; TEMP 97.8; O2SAT 98
[2017-10-23] MEDS: DOCUSATE SODIUM 100 MG CAP PO SCH (20:49)
[2017-10-23] MEDS: ATORVASTATIN 40 MG TAB PO SCH (20:49)
[2017-10-23] MEDS: TAMSULOSIN HCL 0.4 MG CAP PO SCH (20:49)
[2017-10-24 06:00] VITALS: BP 163/88; PULSE 66; RESP 18; TEMP 98; O2SAT 95
[2017-10-24] MEDS: FINASTERIDE 5 MG TAB PO SCH (08:32)
[2017-10-24] MEDS: amLODIPine BESYLATE 5 MG TAB PO SCH (08:32)
[2017-10-24] MEDS: risperiDONE 1 MG TAB PO SCH ×2 (08:32→20:42)
[2017-10-24] MEDS: CHOLECALCIFEROL (VIT D3) 1000 UNIT TAB PO SCH (08:32)
[2017-10-24] MEDS: FAMOTIDINE 20 MG TAB PO SCH ×2 (08:32→20:43)
[2017-10-24] MEDS: APIXABAN 5 MG TABLET PO SCH ×2 (08:32→20:43)
[2017-10-24] MEDS: CEFUROXIME AXETIL 500 MG TAB PO SCH (08:32)
[2017-10-24] MEDS: CARVEDILOL 3.125 MG TAB PO SCH ×2 (08:32→20:42)
[2017-10-24] MEDS: LISINOPRIL 5 MG TAB PO SCH (08:40)
[2017-10-24 13:05] LABS: HEMOGLOBIN A1C 6.3 % (4.3-6.0)
--- NOTE | 2017-10-24 13:18 | HHI.PR ---
Subjective Remarks Follow up for UTI, HTN. The patient is seen lying in bed. He has no medical complaints. Denies any fevers/chills, abdominal pain, or urinary complaints. Tolerating oral intake. Vitals reviewed, BP slightly elevated, adjusted meds. Objective Vitals Vital Signs Date Time Temp Pulse Resp B/P (MAP) Pulse Ox O2 Delivery O2 Flow Rate FiO2 10/24/17 06:00 98.0 66 18 163/88 (113) 95 10/23/17 18:00 97.8 52 18 154/80 (104) 98 I/O 10/23/17 10/23/17 10/23/17 10/24/17 10/24/17 10/24/17 07:00 15:00 23:00 07:00 15:00 23:00 Intake Total 1200 ml 840 ml 480 ml Balance 1200 ml 840 ml 480 ml Intake Oral 1200 ml 840 ml 480 ml # Voids 2 2 # Bowel Movements 1 Result Diagram: 10/23/17 0726 10/23/17 07 Imaging Last Impressions Head CT 10/17/177 Signed Impressions: Service Date/Time: Tuesday, October 17, 2017 15:25 - CONCLUSION: 1. 2.7 x 2.0 cm peripherally calcified left posterior parietal extra-axial mass near the vertex likely reflecting meningioma. Further characterization may be performed with contrast-enhanced MRI exam on an outpatient basis if this has not been previously evaluated. 2. Encephalomalacia in the left posterior frontal high convexities near vertex, left occipital lobe, and right frontal mid to high convexities consistent with prior infarcts. 3. Otherwise, no acute intracranial abnormality. Carlos Dougherty MD Chest X-Ray 10/17/17 1517 Signed Impressions: Service Date/Time: Tuesday, October 17, 2017 15:34 - CONCLUSION: 1. Minimal bibasilar airspace disease, presumably atelectasis. 2. Otherwise, no acute abnormality. Carlos Dougherty MD Objective Remarks GENERAL: Well-nourished, well-developed male patient in NAD. Lying in bed. SKIN: Warm and dry. No rash. HEENT: Normocephalic. Atraumatic. Pupils equal and round. Mucous membranes pink and moist. CARDIOVASCULAR: Regular rate and rhythm. No murmur appreciated. RESPIRATORY: No accessory muscle use. Clear to auscultation. Breath sounds equal bilaterally. GASTROINTESTINAL: Abdomen soft, non-tender, nondistended. Normoactive bowel sounds x4. GENITOURINARY: Solis in place, with leg bag. MUSCULOSKELETAL: No obvious deformities. Extremities without clubbing, cyanosis , or edema. NEUROLOGICAL: Awake and alert. No obvious cranial nerve deficits. Motor grossly within normal limits. Normal speech. Medications and IVs Current Medications Medications (Trade) Dose Ordered Sig/Markus Route Start Time Stop Time Status Last Admin (NS Flush) 2 ml UNSCH PRN IV FLUSH 10/17/17 15:30 (Tylenol) 650 mg Q4H PRN PO 10/18/17 19:15 (Milk Of Magnesia Liq) 30 ml DAILY PRN PO 10/18/17 19:15 (Mag-Al Plus Susp Liq) 30 ml Q6H PRN PO 10/18/17 19:15 (Pill Splitter) 1 ea UNSCH PRN OTHER 10/18/17 22:30 (Eliquis) 5 mg BID PO 10/19/17 21:00 10/24/17 08:32 (Lipitor) 40 mg HS PO 10/19/17 21:00 10/23/17 20:49 (Colace) 100 mg HS PO 10/19/17 21:00 10/23/17 20:49 (Pepcid) 20 mg BID PO 10/19/17 21:00 10/24/17 08:32 (Proscar) 5 mg DAILY PO 10/20/17 09:00 10/24/17 08:32 (Flomax) 0.4 mg HS PO 10/19/17 21:00 10/23/17 20:49 (Benadryl) 50 mg HS PRN PO 10/19/17 12:15 (Ativan) 0.5 mg Q6H PRN PO 10/19/17 12:15 10/22/17 18:50 (Vitamin D3) 1,000 units DAILY PO 10/20/17 09:00 10/24/17 08:32 (Coreg) 3.125 mg BID PO 10/19/17 21:00 10/24/17 08:32 (Norvasc) 5 mg DAILY PO 10/22/17 09:00 10/24/17 08:32 (risperDAL) 2 mg BID PO 10/22/17 21:00 10/24/17 08:32 (Prinivil) 5 mg DAILY PO 10/24/17 09:00 10/24/17 08:40 (Levaquin) 750 mg DAILY PO 10/24/17 12:45 10/31/17 12:44 (Lactinex) 1 tab BID PO 10/24/17 21:00 10/31/17 20:59 A/P Problem List: (1) Urinary tract infection ICD Code: N39.0 - Urinary tract infection, site not specified Status: Acute Assessment and Plan 72-year-old male with history of CVA x3, CAD s/p CABG October2016, HTN, HLD, nonmalignant brain tumor, neurogenic bladder with indwelling catheter, admitted under [facility] to medical psychiatric unit for bizarre behavior, delusions, escaping his home. Hospitalists consulted for medical management of UTI diagnosed on admission. Psychosis: suspect underlying psychiatric illness. Rule out toxic/metabolic etiologies. -Head CT images reviewed, shows 2.72.0 cm calcified left posterior parietal extra-axial mass likely meningioma; encephalomalacia left posterior frontal high convexities, left occipital lobe, and right frontal mid to high convexities consistent with prior infarcts; no acute intracranial findings -UA abnormal, see below -TSH wnl, ammonia wnl -Ordered IVF hydration however patient refused x2days, encouraged oral intake -further management per psychiatry RENARD: Cr increased from 1.11 to 1.52. Suspect secondary to dehydration vs iatrogenic from antihypertensives given -avoid nephrotoxins -hold patient's lisinopril for now -monitor renal function -patient refused IV fluids x2days, strongly encouraged oral intake, RN reports good amount of fluid intake, repeat BMP with some improvement, Cr 1.24 -continue to encourage oral intake -10/23 repeat BMP continues to show improvement with Cr 1.08 UTI: patient has Solis catheter in place secondary to neurogenic bladder. -initial UA from 10/17 abnormal however urine culture with mixed suzy, probable contaminants, discontinued antibiotics -repeat UA done 10/22 also abnormal, preliminary urine culture with gram negative rods and pseudomonas -exchanged Solis on 10/23 -started on Levaquin 750mg po qd x7days -await final urine C&S HTN/HLD/CAD s/p CABG: chronic -continue patient's home medications including statin, coreg -initially held patient's lisinopril due to RENARD, now renal function improved , restart lisinopril -monitor BP, adjust antihypertensives as needed -BP still elevated, started on amlodipine 5mg daily with good response -continue to monitor Neurogenic Bladder with Indwelling Solis Catheter: chronic, patient reports he' s had a Solis since his CABG back in October2016 -continue patient's flomax and finasteride -continue outpatient follow up Vitamin D Deficiency: Vit D level 16 -given ergocalciferol 50,000u x1 -continue on cholecalciferol 1000u daily DVT Prophylaxis: ambulation Discharge Planning Continue to follow urine culture. Continue to monitor blood pressure and renal function. Problem Qualifiers (1) Urinary tract infection: Qualified Codes: T83.511A - Infection and inflammatory reaction due to indwelling urethral catheter, initial encounter; N39.0 - Urinary tract infection , site not specified Carolyn Naylor PA-C October 24, 2017 1:18 pm
[2017-10-24] MEDS: LEVOFLOXACIN 750 MG TAB PO SCH (14:20)
--- NOTE | 2017-10-24 15:23 | HHI.PYPN ---
Subjective Remarks Patient was seen and case discussed with nursing. Today, patient is pleasantly sarcastic. He at times switches between languages. Remains grossly disorganized. Compliant with his medications. No outbursts. Concerned that he has had no contact with family Mental Status Examination Appearance: Appropriate Consciousness: Alert, Vigilant Orientation: x4 Motor Activity: Normal gait Speech: Unremarkable Language: Adequate Fund of Knowledge: Adequate Attention and Concentration: Adequate Memory: Unremarkable Mood: Appropriate Affect: Appropriate Thought Process & Associations: Intact Thought Content: Delusional Hallucination Type: None Delusion Type: Bizarre, Paranoid, Other (Persecutory) Suicidal Ideation: No Suicidal Plan: No Suicidal Intention: No Homicidal Ideation: No Homicidal Plan: No Homicidal Intention: No Insight: Poor Judgment: Poor Results Labs Date/Time Source Procedure Growth Status 10/22/17 13:53 Urine Catheterized Urine Urine Culture - Preliminary Gram Negative Toni Pseudomonas Aeruginosa Resulted Vitals/IOs Vital Signs Date Time Temp Pulse Resp B/P (MAP) Pulse Ox O2 Delivery O2 Flow Rate FiO2 10/24/17 06:00 98.0 66 18 163/88 (113) 95 Intake and Output 10/24/17 10/24/17 10/25/17 08:00 16:00 00:00 Intake Total 480 ml 480 ml Balance 480 ml 480 ml Assessment & Plan Problem List: (1) Unspecified psychosis ICD Codes: F29 - Unspecified psychosis not due to a substance or known physiological condition Assessment & Plan Continue current treatment plan Justification for Cont. Inpt. Patient would decompensate in a less restrictive setting Gildardo Espinoza DO October 24, 2017 15:23
[2017-10-24 18:02] VITALS: BP 127/65; PULSE 85; RESP 18; TEMP 98.3; O2SAT 97
[2017-10-24] MEDS: TAMSULOSIN HCL 0.4 MG CAP PO SCH (20:42)
[2017-10-24] MEDS: LACTOBACILLUS ACIDOPHILUS TAB PO SCH (20:43)
[2017-10-24] MEDS: DOCUSATE SODIUM 100 MG CAP PO SCH (20:43)
[2017-10-24] MEDS: ATORVASTATIN 40 MG TAB PO SCH (20:43)
[2017-10-25 05:58] VITALS: BP 122/93; PULSE 89; RESP 15; TEMP 98.4; O2SAT 93
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
[2017-10-25] MEDS: CHOLECALCIFEROL (VIT D3) 1000 UNIT TAB PO SCH (10:03)
[2017-10-25] MEDS: FAMOTIDINE 20 MG TAB PO SCH ×2 (10:04→20:50)
[2017-10-25] MEDS: LACTOBACILLUS ACIDOPHILUS TAB PO SCH ×2 (10:04→20:49)
[2017-10-25] MEDS: LEVOFLOXACIN 750 MG TAB PO SCH (10:06)
[2017-10-25] MEDS: LISINOPRIL 5 MG TAB PO SCH (10:06)
[2017-10-25] MEDS: APIXABAN 5 MG TABLET PO SCH ×2 (10:07→20:50)
[2017-10-25] MEDS: amLODIPine BESYLATE 5 MG TAB PO SCH (10:07)
[2017-10-25] MEDS: FINASTERIDE 5 MG TAB PO SCH (10:07)
[2017-10-25] MEDS: CARVEDILOL 3.125 MG TAB PO SCH ×2 (10:08→20:49)
[2017-10-25] MEDS: risperiDONE 1 MG TAB PO SCH (10:11)
--- NOTE | 2017-10-25 14:55 | PD.TTN ---
Patient Problems 1. Discharge planning 2. Medication compliance 3. Knowledge deficit 4. Lack of coping skills Progress Toward Goals Provider Present: Dr. Jean Claude Andres Provider Input: Dr. Andres had his treatment team meeting to discuss patient's discharge, medication, and treatment. Patient continues to present delusional, is medication compliant, will be changing medication Nurse(s) Input: Patient is disorganized, parnoid, confused and anxious. Patient denies suicidal and homicidal ideation Psychiatric Counselors Present: Rocio Mancini [facility] Psych Therapist Input: Patient presents confused and disoriented. Patient was seen in his room, wearing only his underwear walking around his room. Patient had completely disorganized his room, turned his mattress over, pulled off his sheets and put them on the floor. Patient denied suicidal and homicidal ideation. Patient continues to present with paranoia Group Spec/RT/OT/[place] Present: Alfredo Hammer, OT Group Spec/RT/OT/[place] Input: Patient does not participate in groups Rocio Mancini [facility] October 25, 2017 14:55
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
[2017-10-25 18:00] VITALS: BP 122/65; PULSE 91; RESP 16; TEMP 97.8; O2SAT 96
[2017-10-25] MEDS: DOCUSATE SODIUM 100 MG CAP PO SCH (20:49)
[2017-10-25] MEDS: ATORVASTATIN 40 MG TAB PO SCH (20:49)
[2017-10-25] MEDS: TAMSULOSIN HCL 0.4 MG CAP PO SCH (20:49)
[2017-10-25] MEDS: risperiDONE 3 MG TAB PO SCH (20:51)
[2017-10-26 05:03] VITALS: BP 122/69; PULSE 70; RESP 16; TEMP 97.8; O2SAT 98
[2017-10-26] MEDS ORDERED: DEXTROSE 50% IN WATER 50 ML VIAL(D50) IV PUSH PRN (09:15)
[2017-10-26] MEDS ORDERED: GLUCAGON 1 MG/ML VIAL OTHER PRN (09:15)
--- NOTE | 2017-10-26 09:28 | HHI.PYPN ---
Subjective Remarks Patient seen for follow, chart reviewed. Discussion nursing staff reported the patient slept well, continued to be noted to be confused at times. Patient was found lying hospital bed noted B, cooperative. Patient states that patient has been feeling "okay" mentioned that he had a visit from his yesterday which went well. Patient states that he had felt that he had a meaningful visit with his , no longer having negative thoughts comments toward her stating that he blames himself for his recent discord with his . Patient states that he is sleeping well no difficulty eating and drinking, tolerating medications well. Patient when asked about the delusions of problems at home he states that he no longer believes that stating that it was "silly". Review of Systems Except as stated in HPI: all other systems reviewed are Neg Mental Status Examination Appearance: Appropriate Consciousness: Alert, Vigilant Orientation: Person, Place, Date/Time Motor Activity: Normal gait Speech: Unremarkable Language: Adequate Fund of Knowledge: Adequate Attention and Concentration: Adequate Memory: Unremarkable Mood: Appropriate Affect: Appropriate Thought Process & Associations: Intact Thought Content: Delusional (Less so today) Hallucination Type: None Delusion Type: Bizarre (Less so today), Paranoid (Less so today), Other ( Persecutory -less so today) Suicidal Ideation: No Suicidal Plan: No Suicidal Intention: No Homicidal Ideation: No Homicidal Plan: No Homicidal Intention: No Insight: Poor Judgment: Poor Results Labs Date/Time Source Procedure Growth Status 10/22/17 13:53 Urine Catheterized Urine Urine Culture - Preliminary Gram Negative Toni Pseudomonas Aeruginosa Resulted Vitals/IOs Vital Signs Date Time Temp Pulse Resp B/P (MAP) Pulse Ox O2 Delivery O2 Flow Rate FiO2 10/26/17 05:03 97.8 70 16 122/69 (86) 98 Intake and Output 10/26/17 10/26/17 10/27/17 08:00 16:00 00:00 Intake Total 60 ml Output Total 600 ml Balance -600 ml 60 ml Assessment & Plan Problem List: (1) Unspecified psychosis ICD Codes: F29 - Unspecified psychosis not due to a substance or known physiological condition Assessment & Plan Patient this time noted with improved mood, lessening of paranoia and bizarre and persecutory delusions. Patient psychosis appears to be improving, we will continue current treatment. Continue monitor mood and behavior. Discharge planning in progress. Justification for Cont. Inpt. At risk for further decompensation if at lower level of care Discharge Planning Patient return back to his residence when psychiatrically stable. Billy Andres MD October 26, 2017 09:28
[2017-10-26] MEDS: APIXABAN 5 MG TABLET PO SCH ×2 (10:14→20:34)
[2017-10-26] MEDS: CHOLECALCIFEROL (VIT D3) 1000 UNIT TAB PO SCH (10:44)
[2017-10-26] MEDS: LACTOBACILLUS ACIDOPHILUS TAB PO SCH ×2 (10:44→20:35)
[2017-10-26] MEDS: CARVEDILOL 3.125 MG TAB PO SCH ×2 (10:44→20:36)
[2017-10-26] MEDS: FINASTERIDE 5 MG TAB PO SCH (10:44)
[2017-10-26] MEDS: amLODIPine BESYLATE 5 MG TAB PO SCH (10:44)
[2017-10-26] MEDS: risperiDONE 1 MG TAB PO SCH (10:44)
[2017-10-26] MEDS: FAMOTIDINE 20 MG TAB PO SCH ×2 (10:45→20:35)
[2017-10-26] MEDS: LISINOPRIL 5 MG TAB PO SCH (10:45)
--- NOTE | 2017-10-26 12:12 | HHI.PR ---
Subjective Remarks Follow up on patient with pyuria, HTN. Patient seen and examined. Patient states he feels well today. He denies any medical complaints. Denies any fever , chills, dizziness, N/V, dyspnea, chest pain, abdominal pain or diarrhea. Discussed with NÉSTOR Melgoza. Patient eating 75-100% of meals. No acute issues noted. Objective Vitals Vital Signs Date Time Temp Pulse Resp B/P (MAP) Pulse Ox O2 Delivery O2 Flow Rate FiO2 10/26/17 05:03 97.8 70 16 122/69 (86) 98 10/25/17 18:00 97.8 91 16 122/65 (84) 96 I/O 10/25/17 10/25/17 10/25/17 10/26/17 10/26/17 10/26/17 07:00 15:00 23:00 07:00 15:00 23:00 Intake Total 240 ml 1440 ml 590 ml 480 ml 60 ml Output Total 650 ml 200 ml 600 ml Balance -410 ml 1440 ml 390 ml -120 ml 60 ml Intake Oral 240 ml 1440 ml 590 ml 480 ml 60 ml Output Urine Total 650 ml 200 ml 600 ml Result Diagram: 10/23/17 0726 10/23/17 0726 Imaging Last Impressions Head CT 10/17/17 1517 Signed Impressions: Service Date/Time: Tuesday, October 17, 2017 15:25 - CONCLUSION: 1. 2.7 x 2.0 cm peripherally calcified left posterior parietal extra-axial mass near the vertex likely reflecting meningioma. Further characterization may be performed with contrast-enhanced MRI exam on an outpatient basis if this has not been previously evaluated. 2. Encephalomalacia in the left posterior frontal high convexities near vertex, left occipital lobe, and right frontal mid to high convexities consistent with prior infarcts. 3. Otherwise, no acute intracranial abnormality. Carlos Dougherty MD Chest X-Ray 10/17/17 1517 Signed Impressions: Service Date/Time: Tuesday, October 17, 2017 15:34 - CONCLUSION: 1. Minimal bibasilar airspace disease, presumably atelectasis. 2. Otherwise, no acute abnormality. Carlos Dougherty MD Objective Remarks GENERAL: Well-nourished, well-developed male patient in NAD. Awake and alert. Witnessed ambulating in unit. SKIN: Warm and dry. No rash. HEENT: Normocephalic. Atraumatic. Pupils equal and round. Mucous membranes pink and moist. CARDIOVASCULAR: Regular rate and rhythm. No murmur appreciated. RESPIRATORY: Nonlabored. Clear to auscultation. Breath sounds equal bilaterally. GASTROINTESTINAL: Abdomen soft, non-tender, nondistended. Normoactive bowel sounds x4. GENITOURINARY: Solis in place, with leg bag with rodney colored urine. MUSCULOSKELETAL: No obvious deformities. Extremities without clubbing, cyanosis , or edema. No calf tenderness. NEUROLOGICAL: Awake and alert. No obvious cranial nerve deficits. Motor grossly within normal limits. Nonfocal. Normal speech. PSYCHIATRIC: Calm and pleasant. Cooperative with exam. Medications and IVs Current Medications Medications (Trade) Dose Ordered Sig/Markus Route Start Time Stop Time Status Last Admin (NS Flush) 2 ml UNSCH PRN IV FLUSH 10/17/17 15:30 (Tylenol) 650 mg Q4H PRN PO 10/18/17 19:15 (Milk Of Magnesia Liq) 30 ml DAILY PRN PO 10/18/17 19:15 (Mag-Al Plus Susp Liq) 30 ml Q6H PRN PO 10/18/17 19:15 (Pill Splitter) 1 ea UNSCH PRN OTHER 10/18/17 22:30 (Eliquis) 5 mg BID PO 10/19/17 21:00 10/25/17 20:50 (Lipitor) 40 mg HS PO 10/19/17 21:00 10/25/17 20:49 (Colace) 100 mg HS PO 10/19/17 21:00 10/25/17 20:49 (Pepcid) 20 mg BID PO 10/19/17 21:00 10/26/17 10:45 (Proscar) 5 mg DAILY PO 10/20/17 09:00 10/26/17 10:44 (Flomax) 0.4 mg HS PO 10/19/17 21:00 10/25/17 20:49 (Benadryl) 50 mg HS PRN PO 10/19/17 12:15 (Ativan) 0.5 mg Q6H PRN PO 10/19/17 12:15 10/22/17 18:50 (Vitamin D3) 1,000 units DAILY PO 10/20/17 09:00 10/26/17 10:44 (Coreg) 3.125 mg BID PO 10/19/17 21:00 10/26/17 10:44 (Norvasc) 5 mg DAILY PO 10/22/17 09:00 10/26/17 10:44 (Prinivil) 5 mg DAILY PO 10/24/17 09:00 10/26/17 10:45 (Levaquin) 750 mg DAILY PO 10/24/17 12:45 10/31/17 12:44 Future Hold 10/25/17 10:06 (Lactinex) 1 tab BID PO 10/24/17 21:00 10/31/17 20:59 10/26/17 10:44 (risperDAL) 2 mg DAILY PO 10/26/17 09:00 10/26/17 10:44 (risperDAL) 3 mg HS PO 10/25/17 21:00 10/25/17 20:51 (D50w (Vial) Inj) 50 ml UNSCH PRN IV PUSH 10/26/17 09:15 (Glucagon Inj) 1 mg UNSCH PRN OTHER 10/26/17 09:15 (NovoLOG SUPPLEMENTAL SCALE) 1 ACHS SLIDING SCALE SQ 10/26/17 12:00 A/P Problem List: (1) Urinary tract infection ICD Code: N39.0 - Urinary tract infection, site not specified Status: Acute Assessment and Plan 72-year-old male with history of CVA x3, CAD s/p CABG October2016, HTN, HLD, nonmalignant brain tumor, neurogenic bladder with indwelling catheter, admitted under Hu Act to medical psychiatric unit for bizarre behavior, delusions, escaping his home. Hospitalist service consulted for medical management of UTI diagnosed on admission. Psychosis: suspect underlying psychiatric illness. Rule out toxic/metabolic etiologies. -Head CT images reviewed, shows 2.72.0 cm calcified left posterior parietal extra-axial mass likely meningioma; encephalomalacia left posterior frontal high convexities, left occipital lobe, and right frontal mid to high convexities consistent with prior infarcts; no acute intracranial findings -UA abnormal, see below -TSH wnl, ammonia wnl -further management per psychiatry RENARD: Cr increased from 1.11 to 1.52. Suspect secondary to dehydration vs iatrogenic from antihypertensives given, improved Patient's ACEI held but resumed 3 days ago Creatinine now 1.08 -avoid nephrotoxins -continue to encourage oral intake -repeat BMP to monitor kidney fxn since ACEI resumed ESBL UTI: patient has Solis catheter in place secondary to neurogenic bladder. ?colonization. Patient is afebrile, no leukocytosis, no c/o abd pain Solis changed on 10/23 -started on Levaquin 750mg po qd x7days - discontinue -Consult ID, appreciate assistance HTN/HLD/CAD s/p CABG: chronic, controlled -continue patient's home medications including statin, coreg -monitor BP, adjust antihypertensives as needed -BP still elevated, started on amlodipine 5mg daily with good response -continue to monitor Hx of CVA x 3, stable -continue on Eliquis Neurogenic Bladder with Indwelling Solis Catheter: chronic, patient reports he' s had a Solis since his CABG back in October2016 -continue patient's flomax and finasteride -continue outpatient follow up Vitamin D Deficiency: Vit D level 16 -given ergocalciferol 50,000u x1 -continue on cholecalciferol 1000u daily Prediabetes, new diagnosis -HgbA1c 6.3 -Consult educator senior clinical -angel and CRISS -change to heart healthy diabetic diet DVT Prophylaxis: ambulation Problem Qualifiers (1) Urinary tract infection: Qualified Codes: T83.511A - Infection and inflammatory reaction due to indwelling urethral catheter, initial encounter; N39.0 - Urinary tract infection , site not specified Muriel Mcintyre October 26, 2017 12:12
[2017-10-26] MEDS: INSULIN ASPART SUPPLEMENTAL SCALE SQ SCH ×3 (12:38→20:43)
[2017-10-26 16:20] LABS: BACTERIA, URINE RARE /hpf; BILIRUBIN, URINE NEG (NEG); BLOOD, URINE NEG (NEG); GLUCOSE,URINE NEG (NEG); KETONE, URINE NEG (NEG); NITRITE,URINE POS (NEG); URINE COLOR YELLOW (YELLW/STRAW); URINE LEUKOCYTE ESTERASE MOD (NEG)
[2017-10-26 16:21] LABS: BICARBONATE 30.7 MEQ/L (21.0-32.0); CALCIUM 8.8 MG/DL (8.5-10.1); CREATININE 1.13 MG/DL (0.60-1.30)
--- NOTE | 2017-10-26 17:43 | PD.ID.CON ---
History of Present Illness Service ID Consult Requested By [facility] Reason for Consult UTI ESBL+ Primary Care Physician Unknown Diagnoses: History of Present Illness 72 male admitted to psych unit for depression/psychosis chronic birch x 1 year for neurogenic bladder last time changed 2 weeks ago -per pt Pt presetns no c/o Normal WBC, no fever BP normal UA on admission with pyuria, clx cw contaminants Repeat UA with pyuria (26), grew PSAE and ESBL+ E.coli Levaquine was stopped Review of Systems Except as stated in HPI: all other systems reviewed are Neg Past Family Social History Allergies: Coded Allergies: No Known Allergies (Unverified , 10/17/17) Past Medical History CVA x3 CAD s/p CABG October2016 HTN HLD nonmalignant brain tumor neurogenic bladder with indwelling catheter Past Surgical History CABG October2016 Active Ordered Medications levaquine - stopped Family History reviewewd/ non contributory Social History No Tobacco. No ETOH. No Illicit Drugs. Physical Exam Vital Signs Vital Signs Date Time Temp Pulse Resp B/P (MAP) Pulse Ox O2 Delivery O2 Flow Rate FiO2 10/26/17 05:03 97.8 70 16 122/69 (86) 98 10/25/17 18:00 97.8 91 16 122/65 (84) 96 Physical Exam CONSTITUTIONAL/GENERAL: This is an adequately nourished patient, in no apparent distress. TUBES/LINES/DRAINS: SKIN: No jaundice, rashes, or lesions. Ecchymoses on upper extremities. No wounds seen anteriorly. Skin temperature appropriate. Not diaphoretic. HEAD: Atraumatic. Normocephalic. EYES: Pupils equal and round and reactive. Extraocular motions intact. No scleral icterus. No injection or drainage. Fundi not examined. ENT: Hearing grossly normal. Nose without bleeding or purulent drainage. Oral mucosae without visible erythema, exudates, masses, or lesions. NECK: Trachea midline. Supple, nontender. CARDIOVASCULAR: Regular rate and rhythm without murmurs, gallops, or rubs. No JVD. Peripheral pulses symmetric. RESPIRATORY/CHEST: Symmetric, unlabored respirations. Clear to auscultation. Breath sounds equal bilaterally. No wheezes, rales, or rhonchi. GASTROINTESTINAL: Abdomen soft, non-tender, nondistended. No hepato-splenomegaly , or palpable masses. No guarding. Bowel sounds present. GENITOURINARY: Without palpable bladder distension. Birch catheter in place with clear yellow urine No CVA tenderness b/l MUSCULOSKELETAL: Extremities without clubbing, cyanosis, or edema. No joint tenderness or effusion noted. No calf tenderness. No mottling or clubbing. LYMPHATICS: No palpable cervical or supraclavicular adenopathy. NEUROLOGICAL: Awake and alert. Motor and sensory grossly within normal limits. Follows commands. Clear speech . Moves all extremities. PSYCHIATRIC: Calm and cooperative ; no apparent hallucinations or other psychotic thought process. Laboratory Laboratory Tests Test 10/26/17 15:25 10/26/17 15:40 Urine Color YELLOW Urine Turbidity CLEAR Urine pH 6.0 Urine Specific Phillips 1.021 Urine Protein TRACE Urine Glucose (UA) NEG Urine Ketones NEG Urine Occult Blood NEG Urine Nitrite POS Urine Bilirubin NEG Urine Urobilinogen LESS THAN 2.0 Urine Leukocyte Esterase MOD Urine RBC 2 Urine WBC 26 Urine Bacteria RARE Microscopic Urinalysis Comment CATH-CULTURE IND Blood Urea Nitrogen 24 Creatinine 1.13 Random Glucose 110 Calcium Level 8.8 Sodium Level 143 Potassium Level 3.9 Chloride Level 106 Carbon Dioxide Level 30.7 Anion Gap 6 Estimat Glomerular Filtration Rate 64 Date/Time Source Procedure Growth Status 10/26/17 15:25 Urine Catheterized Urine Urine Culture Pending Received Result Diagram: 10/23/17 0726 10/26/17 1540 Imaging Last Impressions Head CT 10/17/17 1517 Signed Impressions: Service Date/Time: Tuesday, October 17, 2017 15:25 - CONCLUSION: 1. 2.7 x 2.0 cm peripherally calcified left posterior parietal extra-axial mass near the vertex likely reflecting meningioma. Further characterization may be performed with contrast-enhanced MRI exam on an outpatient basis if this has not been previously evaluated. 2. Encephalomalacia in the left posterior frontal high convexities near vertex, left occipital lobe, and right frontal mid to high convexities consistent with prior infarcts. 3. Otherwise, no acute intracranial abnormality. Carlos Dougherty MD Chest X-Ray 10/17/17 1517 Signed Impressions: Service Date/Time: Tuesday, October 17, 2017 15:34 - CONCLUSION: 1. Minimal bibasilar airspace disease, presumably atelectasis. 2. Otherwise, no acute abnormality. Carlos Dougherty MD Assessment and Plan Assessment and Plan Probable asymptomatic pyuria in a pt with indwelling birch DM Neurogenic bladder fu P repeat clx Vale Lindsay MD October 26, 2017 17:43
[2017-10-26 18:18] VITALS: BP 119/71; PULSE 78; RESP 17; TEMP 98.3; O2SAT 97
[2017-10-26] MEDS: TAMSULOSIN HCL 0.4 MG CAP PO SCH (20:34)
[2017-10-26] MEDS: DOCUSATE SODIUM 100 MG CAP PO SCH (20:34)
[2017-10-26] MEDS: risperiDONE 3 MG TAB PO SCH (20:34)
[2017-10-26] MEDS: ATORVASTATIN 40 MG TAB PO SCH (20:35)
[2017-10-27 05:37] VITALS: BP 116/59; PULSE 75; RESP 15; TEMP 97.9; O2SAT 97
[2017-10-27] MEDS: INSULIN ASPART SUPPLEMENTAL SCALE SQ SCH ×4 (08:00→20:50)
[2017-10-27] MEDS: LISINOPRIL 5 MG TAB PO SCH (09:02)
[2017-10-27] MEDS: risperiDONE 1 MG TAB PO SCH (09:02)
[2017-10-27] MEDS: LACTOBACILLUS ACIDOPHILUS TAB PO SCH ×2 (09:02→20:49)
[2017-10-27] MEDS: CARVEDILOL 3.125 MG TAB PO SCH ×2 (09:02→20:49)
[2017-10-27] MEDS: amLODIPine BESYLATE 5 MG TAB PO SCH (09:02)
[2017-10-27] MEDS: FAMOTIDINE 20 MG TAB PO SCH ×2 (09:02→20:49)
[2017-10-27] MEDS: FINASTERIDE 5 MG TAB PO SCH (09:02)
[2017-10-27] MEDS: APIXABAN 5 MG TABLET PO SCH ×2 (09:03→20:50)
[2017-10-27] MEDS: CHOLECALCIFEROL (VIT D3) 1000 UNIT TAB PO SCH (09:03)
--- NOTE | 2017-10-27 10:44 | HHI.PR ---
Subjective Remarks Follow up on patient with pyuria, ESBL, HTN. Patient seen and examined. Patient is asking for me to contact his to find out when he can come home. [place] [facility]. He is asking for his birch leg bagf to be emptied. He denies any complaints. He denies any fever or chills. He denies any chest pain or dyspnea. He denies any N/V or abdominal pain. Objective Vitals Vital Signs Date Time Temp Pulse Resp B/P (MAP) Pulse Ox O2 Delivery O2 Flow Rate FiO2 10/27/17 05:37 97.9 75 15 116/59 (78) 97 10/26/17 18:18 98.3 78 17 119/71 (87) 97 I/O 10/26/17 10/26/17 10/26/17 10/27/17 10/27/17 10/27/17 07:00 15:00 23:00 07:00 15:00 23:00 Intake Total 480 ml 300 ml 1020 ml 240 ml 480 ml Output Total 600 ml 400 ml 400 ml Balance -120 ml 300 ml 620 ml -160 ml 480 ml Intake Oral 480 ml 300 ml 1020 ml 240 ml 480 ml Output Urine Total 600 ml 400 ml 400 ml Result Diagram: 10/23/17 0726 10/26/17 1540 Imaging Last Impressions Head CT 10/17/17 1517 Signed Impressions: Service Date/Time: Tuesday, October 17, 2017 15:25 - CONCLUSION: 1. 2.7 x 2.0 cm peripherally calcified left posterior parietal extra-axial mass near the vertex likely reflecting meningioma. Further characterization may be performed with contrast-enhanced MRI exam on an outpatient basis if this has not been previously evaluated. 2. Encephalomalacia in the left posterior frontal high convexities near vertex, left occipital lobe, and right frontal mid to high convexities consistent with prior infarcts. 3. Otherwise, no acute intracranial abnormality. Carlos Dougherty MD Chest X-Ray 10/17/17 1517 Signed Impressions: Service Date/Time: Tuesday, October 17, 2017 15:34 - CONCLUSION: 1. Minimal bibasilar airspace disease, presumably atelectasis. 2. Otherwise, no acute abnormality. Carlos Dougherty MD Objective Remarks GENERAL: Well-nourished, well-developed male patient in NAD. Awake and alert. Lying in hospital bed. Appears comfortable. SKIN: Warm and dry. No rash. Well healed midline sternal surgical incision. HEENT: Normocephalic. Atraumatic. EOMI. Mucous membranes pink and moist. CARDIOVASCULAR: Regular rate and rhythm. No murmur appreciated. RESPIRATORY: Nonlabored. Clear to auscultation. Breath sounds equal bilaterally. GASTROINTESTINAL: Abdomen soft, non-tender, nondistended. Normoactive bowel sounds x4. GENITOURINARY: Birch in place, with leg bag with rodney colored urine. MUSCULOSKELETAL: No obvious deformities. Extremities without clubbing, cyanosis , or edema. No calf tenderness. NEUROLOGICAL: Awake and alert. No obvious cranial nerve deficits. Motor grossly within normal limits. Nonfocal. Normal speech. PSYCHIATRIC: Calm and pleasant. Cooperative with exam. Medications and IVs Current Medications Medications (Trade) Dose Ordered Sig/Markus Route Start Time Stop Time Status Last Admin (NS Flush) 2 ml UNSCH PRN IV FLUSH 10/17/17 15:30 (Tylenol) 650 mg Q4H PRN PO 10/18/17 19:15 (Milk Of Magnesia Liq) 30 ml DAILY PRN PO 10/18/17 19:15 (Mag-Al Plus Susp Liq) 30 ml Q6H PRN PO 10/18/17 19:15 (Pill Splitter) 1 ea UNSCH PRN OTHER 10/18/17 22:30 (Eliquis) 5 mg BID PO 10/19/17 21:00 10/27/17 09:03 (Lipitor) 40 mg HS PO 10/19/17 21:00 10/26/17 20:35 (Colace) 100 mg HS PO 10/19/17 21:00 10/26/17 20:34 (Pepcid) 20 mg BID PO 10/19/17 21:00 10/27/17 09:02 (Proscar) 5 mg DAILY PO 10/20/17 09:00 10/27/17 09:02 (Flomax) 0.4 mg HS PO 10/19/17 21:00 10/26/17 20:34 (Benadryl) 50 mg HS PRN PO 10/19/17 12:15 (Ativan) 0.5 mg Q6H PRN PO 10/19/17 12:15 10/22/17 18:50 (Vitamin D3) 1,000 units DAILY PO 10/20/17 09:00 10/27/17 09:03 (Coreg) 3.125 mg BID PO 10/19/17 21:00 10/27/17 09:02 (Norvasc) 5 mg DAILY PO 10/22/17 09:00 10/27/17 09:02 (Prinivil) 5 mg DAILY PO 10/24/17 09:00 10/27/17 09:02 (Lactinex) 1 tab BID PO 10/24/17 21:00 10/31/17 20:59 10/27/17 09:02 (risperDAL) 2 mg DAILY PO 10/26/17 09:00 10/27/17 09:02 (risperDAL) 3 mg HS PO 10/25/17 21:00 10/26/17 20:34 (D50w (Vial) Inj) 50 ml UNSCH PRN IV PUSH 10/26/17 09:15 (Glucagon Inj) 1 mg UNSCH PRN OTHER 10/26/17 09:15 (NovoLOG SUPPLEMENTAL SCALE) 1 ACHS SLIDING SCALE SQ 10/26/17 12:00 10/26/17 20:43 A/P Problem List: (1) Urinary tract infection ICD Code: N39.0 - Urinary tract infection, site not specified Status: Acute Assessment and Plan 72-year-old male with history of CVA x3, CAD s/p CABG October2016, HTN, HLD, nonmalignant brain tumor, neurogenic bladder with indwelling catheter, admitted under Hu Act to medical psychiatric unit for bizarre behavior, delusions, escaping his home. Hospitalist service consulted for medical management of UTI diagnosed on admission. Psychosis: suspect underlying psychiatric illness. Rule out toxic/metabolic etiologies. -Head CT images reviewed, shows 2.72.0 cm calcified left posterior parietal extra-axial mass likely meningioma; encephalomalacia left posterior frontal high convexities, left occipital lobe, and right frontal mid to high convexities consistent with prior infarcts; no acute intracranial findings -UA abnormal, see below -TSH wnl, ammonia wnl -further management per psychiatry RENARD: Cr increased from 1.11 to 1.52. Suspect secondary to dehydration vs iatrogenic from antihypertensives given, improved Patient's ACEI held but resumed 4 days ago Creatinine now 1.13 -avoid nephrotoxins -continue to encourage oral intake -monitor kidney fxn as indicated ESBL UTI: patient has Birch catheter in place secondary to neurogenic bladder. ?colonization. Patient is afebrile, no leukocytosis, no c/o abd pain Birch changed on 10/23 -started on Levaquin 750mg po qd x7days - discontinued -ID following, appreciate assistance -Await repeat UCX results HTN/HLD/CAD s/p CABG: chronic, controlled -continue patient's home medications including statin, coreg and lisinopril -monitor BP, adjust antihypertensives as needed -BP still elevated, started on amlodipine 5mg daily with good response -continue to monitor Hx of CVA x 3, stable -continue on Eliquis Neurogenic Bladder with Indwelling Birch Catheter: chronic, patient reports he' s had a Birch since his CABG back in October2016 -continue patient's flomax and finasteride -continue outpatient follow up Vitamin D Deficiency: Vit D level 16 -given ergocalciferol 50,000u x1 -continue on cholecalciferol 1000u daily Prediabetes, new diagnosis -HgbA1c 6.3 -Consult industrial renderer -angel and CRISS. BS running between 110 to 198 -change to heart healthy diabetic diet DVT Prophylaxis: ambulation Patient appears stable from hospitalist standpoint. Probable asymptomatic pyuria. Will f/u on repeat UCX results. [facility] will sign off. Please reconsult if needed. Problem Qualifiers (1) Urinary tract infection: Qualified Codes: T83.511A - Infection and inflammatory reaction due to indwelling urethral catheter, initial encounter; N39.0 - Urinary tract infection , site not specified Muriel Mcintyre October 27, 2017 10:44
--- NOTE | 2017-10-27 10:52 | HHI.PYPN ---
Subjective Remarks Patient seen for follow-up, chart reviewed. Discussion nursing staff reported the patient somewhat seclusive to his room, denying any delusions, slept well. Patient was found lying hospital bed noted B, cooperative. Patient states they have sleeping well, his mood has been "okay" denied having any visits from last night but states that upon her last visit she told him that he would be here "forever". Patient denying any delusions of problems in the home or anywhere else, denies any delusions of persecution or if people invade his community today. Patient will present to mental health court tomorrow. Review of Systems Except as stated in HPI: all other systems reviewed are Neg Mental Status Examination Appearance: Appropriate Consciousness: Alert, Vigilant Orientation: Person, Place, Date/Time Motor Activity: Normal gait Speech: Unremarkable Language: Adequate Fund of Knowledge: Adequate Attention and Concentration: Adequate Memory: Unremarkable Mood: Appropriate Affect: Appropriate Thought Process & Associations: Intact Thought Content: Delusional (Less so today) Hallucination Type: None Delusion Type: Bizarre (Less so today), Paranoid (Less so today), Other ( Persecutory -less so today) Suicidal Ideation: No Suicidal Plan: No Suicidal Intention: No Homicidal Ideation: No Homicidal Plan: No Homicidal Intention: No Insight: Poor Judgment: Poor Results Labs Labs reviewed Test 10/26/17 15:25 10/26/17 15:40 Urine Color YELLOW Urine Turbidity CLEAR Urine pH 6.0 Urine Specific Baylis 1.021 Urine Protein TRACE mg/dL Urine Glucose (UA) NEG mg/dL Urine Ketones NEG mg/dL Urine Occult Blood NEG Urine Nitrite POS Urine Bilirubin NEG Urine Urobilinogen LESS THAN 2.0 MG/DL Urine Leukocyte Esterase MOD Urine RBC 2 /hpf Urine WBC 26 /hpf Urine Bacteria RARE /hpf Microscopic Urinalysis Comment CATH-CULTURE IND Blood Urea Nitrogen 24 MG/DL Creatinine 1.13 MG/DL Random Glucose 110 MG/DL Calcium Level 8.8 MG/DL Sodium Level 143 MEQ/L Potassium Level 3.9 MEQ/L Chloride Level 106 MEQ/L Carbon Dioxide Level 30.7 MEQ/L Anion Gap 6 MEQ/L Estimat Glomerular Filtration Rate 64 ML/MIN Date/Time Source Procedure Growth Status 10/26/17 15:25 Urine Catheterized Urine Urine Culture Pending Received Vitals/IOs Vital Signs Date Time Temp Pulse Resp B/P (MAP) Pulse Ox O2 Delivery O2 Flow Rate FiO2 10/27/17 05:37 97.9 75 15 116/59 (78) 97 Intake and Output 10/27/17 10/27/17 10/28/17 08:00 16:00 00:00 Intake Total 720 ml Output Total 400 ml Balance 320 ml Assessment & Plan Problem List: (1) Unspecified psychosis ICD Codes: F29 - Unspecified psychosis not due to a substance or known physiological condition Assessment & Plan Patient this time noted to have stable mood, not endorsing any paranoid or persecutory delusions at this time. We will attempt to contact to visit patient to assess whether patient is back at baseline for possible discharge soon. Patient will present to mental health court tomorrow. Continue current treatment. Continue monitor mood and behavior. Patient to continue recommendations as per prior medical team, urine cultures pending. Discharge planning in progress. Justification for Cont. Inpt. At risk of further decompensation at lower level of care. Discharge Planning Patient return back to his residence when psychiatrically stable. Billy Andres MD October 27, 2017 10:52
--- NOTE | 2017-10-27 14:38 | PD.TTN ---
Patient Problems 1. Discharge planning 2. Medication compliance 3. Knowledge deficit 4. Lack of coping skills Progress Toward Goals Provider Present: Dr. Jean Claude Andres (10/26/17- Pt. has court tomorrow. Pt.'s paranoia is starting to lift.) Provider Input: Dr. Andres had his treatment team meeting to discuss patient's discharge, medication, and treatment. Patient continues to present delusional, is medication compliant, will be changing medication Nurse(s) Input: Patient is disorganized, parnoid, confused and anxious. Patient denies suicidal and homicidal ideation Psychiatric Counselors Present: Rocio Mancini [facility] Psych Therapist Input: Patient presents confused and disoriented. Patient was seen in his room, wearing only his underwear walking around his room. Patient had completely disorganized his room, turned his mattress over, pulled off his sheets and put them on the floor. Patient denied suicidal and homicidal ideation. Patient continues to present with paranoia Group Spec/RT/OT/[place] Present: Alfredo Hammer OT (10/26/17- Pt. does not attend groups.Pt. requires redirection and is easily overwhelmed.) Group Spec/RT/OT/[place] Input: Patient does not participate in groups Jovanny Ibarra October 27, 2017 14:38
[2017-10-27 18:00] VITALS: BP 116/80; PULSE 78; RESP 15; TEMP 97.7; O2SAT 97
[2017-10-27] MEDS: risperiDONE 3 MG TAB PO SCH (20:49)
[2017-10-27] MEDS: DOCUSATE SODIUM 100 MG CAP PO SCH (20:49)
[2017-10-27] MEDS: TAMSULOSIN HCL 0.4 MG CAP PO SCH (20:49)
[2017-10-27] MEDS: ATORVASTATIN 40 MG TAB PO SCH (20:50)
[2017-10-28 05:06] VITALS: BP 169/84; PULSE 69; RESP 18; TEMP 96.5; O2SAT 95
[2017-10-28] MEDS: INSULIN ASPART SUPPLEMENTAL SCALE SQ SCH ×4 (08:00→20:49)
[2017-10-28] MEDS: LISINOPRIL 5 MG TAB PO SCH (10:08)
[2017-10-28] MEDS: FINASTERIDE 5 MG TAB PO SCH (10:08)
[2017-10-28] MEDS: amLODIPine BESYLATE 5 MG TAB PO SCH (10:08)
[2017-10-28] MEDS: FAMOTIDINE 20 MG TAB PO SCH ×2 (10:08→21:45)
[2017-10-28] MEDS: LACTOBACILLUS ACIDOPHILUS TAB PO SCH ×2 (10:08→21:45)
[2017-10-28] MEDS: CARVEDILOL 3.125 MG TAB PO SCH ×2 (10:08→21:45)
[2017-10-28] MEDS: APIXABAN 5 MG TABLET PO SCH ×2 (10:09→21:45)
[2017-10-28] MEDS: CHOLECALCIFEROL (VIT D3) 1000 UNIT TAB PO SCH (10:09)
[2017-10-28] MEDS: risperiDONE 1 MG TAB PO SCH (10:09)
--- NOTE | 2017-10-28 16:11 | HHI.PYPN ---
Subjective Remarks Patient seen for follow, chart reviewed. Discussion nursing staff reported the patient had visit with yesterday, slept well. Patient was found lying hospital bed noted B, cooperative. Patient reports she has been feeling "fine" reports sleeping well, alert and oriented only to person and place today. Patient continues to state believing that there are bombs in the home but denying any paranoid or persecutory delusions. Patient also denying any delusions of being under surveillance. Patient noted to be with stable mood, did not recall having visited with his yesterday. Patient presented to mental health [facility] where patient was retained for inpatient hospitalization for stabilization. Review of Systems Except as stated in HPI: all other systems reviewed are Neg Mental Status Examination Appearance: Appropriate Consciousness: Alert, Vigilant Orientation: Person, Place, Date/Time Motor Activity: Normal gait Speech: Unremarkable Language: Adequate Fund of Knowledge: Adequate Attention and Concentration: Adequate Memory: Unremarkable Mood: Appropriate Affect: Appropriate Thought Process & Associations: Intact Thought Content: Delusional (Less so today) Hallucination Type: None Delusion Type: Bizarre (Of problems in a home but less intense) Suicidal Ideation: No Suicidal Plan: No Suicidal Intention: No Homicidal Ideation: No Homicidal Plan: No Homicidal Intention: No Insight: Poor Judgment: Poor Results Labs Date/Time Source Procedure Growth Status 10/26/17 15:25 Urine Catheterized Urine Urine Culture - Preliminary Gram Negative Toni Streptococcus Species Resulted Vitals/IOs Vital Signs Date Time Temp Pulse Resp B/P (MAP) Pulse Ox O2 Delivery O2 Flow Rate FiO2 10/28/17 05:06 96.5 69 18 169/84 (112) 95 Intake and Output 10/28/17 10/28/17 10/29/17 08:00 16:00 00:00 Intake Total 600 ml Balance 600 ml Assessment & Plan Problem List: (1) Unspecified psychosis ICD Codes: F29 - Unspecified psychosis not due to a substance or known physiological condition Assessment & Plan Patient this time appears to be improving, denying any respiratory, paranoid delusions or that he is being under surveillance. Patient continues to endorse that there are bombs in the home, noted to be somewhat confused today and unable to recall recent visit with yesterday. We will continue current treatment as patient appears to be improving. Will continue monitor mood and behavior. Discharge planning in progress. Patient retained by a mental health court for further psychiatric stabilization. Justification for Cont. Inpt. At risk for further decompensation if at lower level of care. Billy Andres MD October 28, 2017 16:11
[2017-10-28 18:36] VITALS: BP 107/76; PULSE 69; RESP 17; TEMP 98; O2SAT 97
[2017-10-28] MEDS: risperiDONE 3 MG TAB PO SCH (21:00)
[2017-10-28] MEDS: DOCUSATE SODIUM 100 MG CAP PO SCH (21:00)
[2017-10-28] MEDS: TAMSULOSIN HCL 0.4 MG CAP PO SCH (21:45)
[2017-10-28] MEDS: ATORVASTATIN 40 MG TAB PO SCH (21:45)
[2017-10-29 06:00] VITALS: BP 124/75; PULSE 56; RESP 16; TEMP 98.2; O2SAT 97
[2017-10-29] MEDS: INSULIN ASPART SUPPLEMENTAL SCALE SQ SCH ×4 (08:00→21:00)
[2017-10-29] MEDS: FAMOTIDINE 20 MG TAB PO SCH ×2 (09:34→22:01)
[2017-10-29] MEDS: LACTOBACILLUS ACIDOPHILUS TAB PO SCH ×2 (09:34→21:00)
[2017-10-29] MEDS: risperiDONE 1 MG TAB PO SCH (09:36)
[2017-10-29] MEDS: CHOLECALCIFEROL (VIT D3) 1000 UNIT TAB PO SCH (09:37)
[2017-10-29] MEDS: amLODIPine BESYLATE 5 MG TAB PO SCH (09:38)
[2017-10-29] MEDS: APIXABAN 5 MG TABLET PO SCH ×2 (09:40→22:01)
[2017-10-29] MEDS: FINASTERIDE 5 MG TAB PO SCH (09:41)
[2017-10-29] MEDS: LISINOPRIL 5 MG TAB PO SCH (09:42)
[2017-10-29] MEDS: CARVEDILOL 3.125 MG TAB PO SCH ×2 (09:47→22:01)
--- NOTE | 2017-10-29 10:53 | HHI.PYPN ---
Subjective Remarks Patient seen for follow up; chart reviewed. Discussion with nursing staff reported, patient compliant with treatment,, cooperative and pleasant. Patient was found lying hospital bed be assisted with nurse in changing indwelling catheter. Patient states that he is feeling "good" reports sleeping well, reports eating and drinking well definitive operative. Patient was asked about the "bombs" that he had been referring to previously in regards to noticing down in his home by a son, clarifies that what he found was a box that read "AK- 47" referring to this as a weapon and not literally a explosive device as he had mentioned the word. He mentions that this occurred when he was in [place] and also reported that his son would have literary magazines of firearms , and denies any explosive device and stated that he was using this term in general to describe a weapon. Review of Systems Except as stated in HPI: all other systems reviewed are Neg Mental Status Examination Appearance: Appropriate Consciousness: Alert, Vigilant Orientation: Person, Place, Date/Time Motor Activity: Normal gait Speech: Unremarkable Language: Adequate Fund of Knowledge: Adequate Attention and Concentration: Adequate Memory: Unremarkable Mood: Appropriate Affect: Appropriate Thought Process & Associations: Intact Thought Content: Delusional (Less so today) Hallucination Type: None Delusion Type: Bizarre (lessening) Suicidal Ideation: No Suicidal Plan: No Suicidal Intention: No Homicidal Ideation: No Homicidal Plan: No Homicidal Intention: No Insight: Poor Judgment: Poor Results Labs Date/Time Source Procedure Growth Status 10/26/17 15:25 Urine Catheterized Urine Urine Culture - Preliminary Escherichia Coli Esbl Positive Streptococcus Species Resulted Vitals/IOs Vital Signs Date Time Temp Pulse Resp B/P (MAP) Pulse Ox O2 Delivery O2 Flow Rate FiO2 10/29/17 06:00 98.2 56 16 124/75 (91) 97 Intake and Output 10/29/17 10/29/17 10/30/17 08:00 16:00 00:00 Intake Total 240 ml Balance 240 ml Assessment & Plan Problem List: (1) Unspecified psychosis ICD Codes: F29 - Unspecified psychosis not due to a substance or known physiological condition Assessment & Plan Patient at this time noted with lessening of delusions, now clarifying that what he had seen was a box that was likely a rifle, a weapon which he referred to as a bomb, not literally an explosive device. Patient has Sudanese as a second language, although is able to communicate effectively, there may be a degree of miscommunication due to the same. Continue current treatment, patient noted to be improving. Discharge planning in progress. Justification for Cont. Inpt. At risk for further decompensation if at lower level of care. Discharge Planning Patient to be discharged to health and rehab. Billy Andres MD October 29, 2017 10:53
--- NOTE | 2017-10-29 15:42 | HHI.IDPN ---
Subjective Subjective Remarks no fever no c/o Antibiotics none Allergies: Coded Allergies: No Known Allergies (Unverified , 10/17/17) Objective . Vital Signs Date Time Temp Pulse Resp B/P (MAP) Pulse Ox O2 Delivery O2 Flow Rate FiO2 10/29/17 06:00 98.2 56 16 124/75 (91) 97 10/28/17 18:36 98.0 69 17 107/76 (86) 97 10/29/17 10/29/17 10/30/17 15:00 23:00 07:00 Intake Total 480 ml Balance 480 ml Intake Oral 480 ml Physical Exam CONSTITUTIONAL/GENERAL: This is an adequately nourished patient, in no apparent distress. TUBES/LINES/DRAINS: SKIN: No jaundice, rashes, or lesions. GENITOURINARY: Without palpable bladder distension. Birch catheter in place with clear yellow urine No CVA tenderness b/l NEUROLOGICAL: Awake and alert. Non focal PSYCHIATRIC: Calm and cooperative ; no apparent hallucinations or other psychotic thought process. Assessment & Plan Remarks Probable asymptomatic pyuria in a pt with indwelling birch - repeat clx polimicrobial again with < 10 K CFU DM Neurogenic bladder No need to Rx asymptomatic bacteriuria in a pt with neurogenic bladder and indwelling birch monitor for UTI smx will see as needed Vale Lindsay MD October 29, 2017 15:42
[2017-10-29 17:25] VITALS: BP 158/82; PULSE 58; RESP 16; TEMP 97.9; O2SAT 97
[2017-10-29] MEDS: ATORVASTATIN 40 MG TAB PO SCH (22:01)
[2017-10-29] MEDS: TAMSULOSIN HCL 0.4 MG CAP PO SCH (22:01)
[2017-10-29] MEDS: risperiDONE 3 MG TAB PO SCH (22:01)
[2017-10-29] MEDS: DOCUSATE SODIUM 100 MG CAP PO SCH (22:01)
[2017-10-30 06:00] VITALS: BP 133/91; PULSE 60; RESP 17; TEMP 97.8; O2SAT 98
[2017-10-30] MEDS: INSULIN ASPART SUPPLEMENTAL SCALE SQ SCH ×4 (08:00→21:00)
[2017-10-30] MEDS: risperiDONE 1 MG TAB PO SCH (08:48)
[2017-10-30] MEDS: CHOLECALCIFEROL (VIT D3) 1000 UNIT TAB PO SCH (08:52)
[2017-10-30] MEDS: APIXABAN 5 MG TABLET PO SCH ×2 (08:53→21:54)
[2017-10-30] MEDS: amLODIPine BESYLATE 5 MG TAB PO SCH (08:54)
[2017-10-30] MEDS: LACTOBACILLUS ACIDOPHILUS TAB PO SCH ×2 (08:55→21:53)
[2017-10-30] MEDS: FINASTERIDE 5 MG TAB PO SCH (08:56)
[2017-10-30] MEDS: LISINOPRIL 5 MG TAB PO SCH (08:57)
[2017-10-30] MEDS: FAMOTIDINE 20 MG TAB PO SCH ×2 (08:58→21:53)
[2017-10-30] MEDS: CARVEDILOL 3.125 MG TAB PO SCH ×2 (09:01→21:53)
--- NOTE | 2017-10-30 15:13 | HHI.PYPN ---
Subjective Remarks Patient was seen and case discussed with nursing. Patient continues to be confused and disorganized. Patient mentioned to the nurses that instead of bombs he saw AK-47s. He does not mention it during my interview and it appears these delusions have to be elicited. Alert and oriented 2. Eating and sleeping well. Compliant with medications Mental Status Examination Appearance: Appropriate Consciousness: Alert, Vigilant Orientation: Person, Place, Date/Time Motor Activity: Normal gait Speech: Unremarkable Language: Adequate Fund of Knowledge: Adequate Attention and Concentration: Adequate Memory: Unremarkable Mood: Appropriate Affect: Appropriate Thought Process & Associations: Intact Thought Content: Delusional (Less so today) Hallucination Type: None Delusion Type: Bizarre (lessening) Suicidal Ideation: No Suicidal Plan: No Suicidal Intention: No Homicidal Ideation: No Homicidal Plan: No Homicidal Intention: No Insight: Poor Judgment: Poor Results Labs Date/Time Source Procedure Growth Status 10/26/17 15:25 Urine Catheterized Urine Urine Culture - Final Escherichia Coli Esbl Positive Aerococcus Urinae Complete Vitals/IOs Vital Signs Date Time Temp Pulse Resp B/P (MAP) Pulse Ox O2 Delivery O2 Flow Rate FiO2 10/30/17 06:00 97.8 60 17 133/91 (105) 98 Intake and Output 10/30/17 10/30/17 10/31/17 08:00 16:00 00:00 Intake Total 240 ml 360 ml Balance 240 ml 360 ml Assessment & Plan Problem List: (1) Unspecified psychosis ICD Codes: F29 - Unspecified psychosis not due to a substance or known physiological condition Assessment & Plan Continue current treatment plan Justification for Cont. Inpt. Patient would decompensate in a less restrictive setting Gildardo Espinoza DO October 30, 2017 15:13
[2017-10-30] MEDS: DOCUSATE SODIUM 100 MG CAP PO SCH (21:53)
[2017-10-30] MEDS: TAMSULOSIN HCL 0.4 MG CAP PO SCH (21:53)
[2017-10-30] MEDS: risperiDONE 3 MG TAB PO SCH (21:53)
[2017-10-30] MEDS: ATORVASTATIN 40 MG TAB PO SCH (21:53)
[2017-10-31 06:17] VITALS: BP 130/72; PULSE 52; RESP 16; TEMP 97.4; O2SAT 96
[2017-10-31] MEDS: INSULIN ASPART SUPPLEMENTAL SCALE SQ SCH ×4 (08:00→21:00)
[2017-10-31] MEDS: CARVEDILOL 3.125 MG TAB PO SCH ×2 (09:00→21:48)
[2017-10-31] MEDS: APIXABAN 5 MG TABLET PO SCH ×2 (09:41→21:47)
[2017-10-31] MEDS: CHOLECALCIFEROL (VIT D3) 1000 UNIT TAB PO SCH (09:41)
[2017-10-31] MEDS: amLODIPine BESYLATE 5 MG TAB PO SCH (09:41)
[2017-10-31] MEDS: risperiDONE 1 MG TAB PO SCH (09:41)
[2017-10-31] MEDS: FAMOTIDINE 20 MG TAB PO SCH ×2 (09:42→21:48)
[2017-10-31] MEDS: LISINOPRIL 5 MG TAB PO SCH (09:42)
[2017-10-31] MEDS: LACTOBACILLUS ACIDOPHILUS TAB PO SCH (09:42)
[2017-10-31] MEDS: FINASTERIDE 5 MG TAB PO SCH (09:42)
--- NOTE | 2017-10-31 15:09 | HHI.PYPN ---
Subjective Remarks Patient was seen and case discussed with nursing. Patient is confused and disorganized. He is forgetful and is not sure if he remembers me from yesterday. Has difficulty communicating in [place] despite being fluent. Behaving well on the unit. Compliant with medications Mental Status Examination Appearance: Appropriate Consciousness: Alert, Vigilant Orientation: Person, Place, Date/Time Motor Activity: Normal gait Speech: Unremarkable Language: Adequate Fund of Knowledge: Adequate Attention and Concentration: Adequate Memory: Unremarkable Mood: Appropriate Affect: Appropriate Thought Process & Associations: Intact Thought Content: Delusional (Less so today) Hallucination Type: None Delusion Type: Bizarre (lessening) Suicidal Ideation: No Suicidal Plan: No Suicidal Intention: No Homicidal Ideation: No Homicidal Plan: No Homicidal Intention: No Insight: Poor Judgment: Poor Results Labs Date/Time Source Procedure Growth Status 10/26/17 15:25 Urine Catheterized Urine Urine Culture - Final Escherichia Coli Esbl Positive Aerococcus Urinae Complete Vitals/IOs Vital Signs Date Time Temp Pulse Resp B/P (MAP) Pulse Ox O2 Delivery O2 Flow Rate FiO2 10/31/17 06:17 97.4 52 16 130/72 (91) 96 Intake and Output 10/31/17 10/31/17 11/01/17 08:00 16:00 00:00 Intake Total 240 ml Balance 240 ml Assessment & Plan Problem List: (1) Unspecified psychosis ICD Codes: F29 - Unspecified psychosis not due to a substance or known physiological condition Assessment & Plan Continue current treatment plan Justification for Cont. Inpt. Patient would decompensate in a less restrictive setting Gildardo Espinoza DO October 31, 2017 15:09
[2017-10-31 17:48] VITALS: BP 132/74; PULSE 56; RESP 16; TEMP 97.1; O2SAT 95
[2017-10-31] MEDS: DOCUSATE SODIUM 100 MG CAP PO SCH (21:48)
[2017-10-31] MEDS: risperiDONE 3 MG TAB PO SCH (21:48)
[2017-10-31] MEDS: ATORVASTATIN 40 MG TAB PO SCH (21:48)
[2017-10-31] MEDS: TAMSULOSIN HCL 0.4 MG CAP PO SCH (21:48)
[2017-11-01 05:09] VITALS: BP 133/82; PULSE 57; RESP 15; TEMP 98.1; O2SAT 98
[2017-11-01] MEDS: INSULIN ASPART SUPPLEMENTAL SCALE SQ SCH ×4 (07:41→20:35)
[2017-11-01] MEDS: CARVEDILOL 3.125 MG TAB PO SCH ×2 (09:00→21:03)
--- NOTE | 2017-11-01 09:25 | PD.TTN ---
Patient Problems 1. Discharge planning 2. Medication compliance 3. Knowledge deficit 4. Lack of coping skills Progress Toward Goals Provider Present: Dr. Jean Claude Andres (10/26/17- Pt. has court tomorrow. Pt.'s paranoia is starting to lift.) Provider Input: Dr. Andres had his treatment team meeting to discuss patient's discharge, medication, and treatment. Patient continues to present delusional, is medication compliant, will be changing medication Nurse(s) Input: Patient is disorganized, parnoid, confused and anxious. Patient denies suicidal and homicidal ideation Psychiatric Counselors Present: Rocio Mancini [facility] Psych Therapist Input: Patient presents confused and disoriented. Patient was seen in his room, wearing only his underwear walking around his room. Patient had completely disorganized his room, turned his mattress over, pulled off his sheets and put them on the floor. Patient denied suicidal and homicidal ideation. Patient continues to present with paranoia Group Spec/RT/OT/[place] Present: Alfredo Montalvo OT (10/26/17- Pt. does not attend groups.Pt. requires redirection and is easily overwhelmed.) Group Spec/RT/OT/[place] Input: Patient does not participate in groups Occupational Therapist Input: pt has not been attending groups; isolating to room most times, Other Clinican Input: counselor and MD; pt continues to exhibit symptoms, he meets criteria. Documentation Scribe: alfredo montalvo ms, otr Alfredo Montalvo November 01, 2017 09:25
[2017-11-01] MEDS: FAMOTIDINE 20 MG TAB PO SCH ×2 (09:55→20:34)
[2017-11-01] MEDS: FINASTERIDE 5 MG TAB PO SCH (09:55)
[2017-11-01] MEDS: CHOLECALCIFEROL (VIT D3) 1000 UNIT TAB PO SCH (09:55)
[2017-11-01] MEDS: APIXABAN 5 MG TABLET PO SCH ×2 (09:55→20:35)
[2017-11-01] MEDS: LISINOPRIL 5 MG TAB PO SCH (09:55)
[2017-11-01] MEDS: risperiDONE 1 MG TAB PO SCH (09:55)
[2017-11-01] MEDS: amLODIPine BESYLATE 5 MG TAB PO SCH (09:55)
--- NOTE | 2017-11-01 17:06 | HHI.PYPN ---
Subjective Remarks Patient seen for follow-up, chart reviewed. Discussion with nursing staff reported patient intermittently confused, med compliant less delusions. Patient was found lying on hospital bed, calm and cooperative. Patient states that he has not seen his in weeks nor having spoken to her over the phone despite having been visited by her earlier today. Patient denies any delusions as he previously endorsed stating that he no longer thinks about this. Patient noted with intermittent confusion at times regarding the events prior to admission. He denies any physical complaints at this time. He is noted to have some paranoia about his trying to control everything. He denies SI, HI or AVH. Review of Systems Except as stated in HPI: all other systems reviewed are Neg Mental Status Examination Appearance: Appropriate Consciousness: Alert, Vigilant Orientation: Person, Place, Date/Time Motor Activity: Normal gait Speech: Unremarkable Language: Adequate Fund of Knowledge: Adequate Attention and Concentration: Adequate Memory: Unremarkable Mood: Appropriate Affect: Appropriate Thought Process & Associations: Intact Thought Content: Delusional (Less so today) Hallucination Type: None Delusion Type: Bizarre (lessening), Paranoid (about controlling everything ) Suicidal Ideation: No Suicidal Plan: No Suicidal Intention: No Homicidal Ideation: No Homicidal Plan: No Homicidal Intention: No Insight: Poor Judgment: Poor Results Labs Date/Time Source Procedure Growth Status 10/26/17 15:25 Urine Catheterized Urine Urine Culture - Final Escherichia Coli Esbl Positive Aerococcus Urinae Complete Vitals/IOs Vital Signs Date Time Temp Pulse Resp B/P (MAP) Pulse Ox O2 Delivery O2 Flow Rate FiO2 11/01/17 05:09 98.1 57 15 133/82 (99) 98 Intake and Output 11/01/17 11/01/17 11/02/17 08:00 16:00 00:00 Intake Total 120 ml 240 ml Output Total 300 ml Balance -180 ml 240 ml Assessment & Plan Problem List: (1) Unspecified psychosis ICD Codes: F29 - Unspecified psychosis not due to a substance or known physiological condition Assessment & Plan Patient denies any persecutory delusions, although some paranoia with his and intermittent confusion which likely secondary to 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 Patient to continue current treatment, continue to monitor mood and behavior. Will be discharged to health and rehabilitation facility once one is acquired. Justification for Cont. Inpt. At risk for further decompensation if at lower level of care. Billy Andres MD November 01, 2017 17:06
[2017-11-01 18:02] VITALS: BP 121/82; PULSE 77; RESP 16; TEMP 98.6; O2SAT 97
[2017-11-01] MEDS: DOCUSATE SODIUM 100 MG CAP PO SCH (20:35)
[2017-11-01] MEDS: risperiDONE 3 MG TAB PO SCH (20:35)
[2017-11-01] MEDS: ATORVASTATIN 40 MG TAB PO SCH (20:35)
[2017-11-01] MEDS: TAMSULOSIN HCL 0.4 MG CAP PO SCH (20:35)
[2017-11-02 05:45] VITALS: BP 135/90; PULSE 67; RESP 17; TEMP 97.2; O2SAT 96
[2017-11-02] MEDS: INSULIN ASPART SUPPLEMENTAL SCALE SQ SCH ×4 (08:00→20:44)
--- NOTE | 2017-11-02 09:35 | HHI.PYPN ---
Subjective Remarks Patient seen for follow, chart reviewed. Discussion nursing staff reported patient slept well, needing redirection at times but cooperative. Patient was found lying hospital bed noted B, cooperative. Patient states that he been feeling "down" as he states he has not seen or spoken to his and weeks despite having been reminded the patient was visited by recently. Patient states that if she had visited she did not address him directly. Patient is alert and oriented 3, denying physical complaints, denies any delusions as he has stated during admission. Patient states that he would like to see his which we will try to attempt a family meeting to observe his interaction with his . Review of Systems Except as stated in HPI: all other systems reviewed are Neg Mental Status Examination Appearance: Appropriate Consciousness: Alert, Vigilant Orientation: Person, Place, Date/Time Motor Activity: Normal gait Speech: Unremarkable Language: Adequate Fund of Knowledge: Adequate Attention and Concentration: Adequate Memory: Unremarkable Mood: Appropriate Affect: Appropriate Thought Process & Associations: Intact Thought Content: Delusional (Less so today) Hallucination Type: None Delusion Type: Bizarre (Did not endorse today), Paranoid (Lessening) Suicidal Ideation: No Suicidal Plan: No Suicidal Intention: No Homicidal Ideation: No Homicidal Plan: No Homicidal Intention: No Insight: Poor Judgment: Poor Results Labs Date/Time Source Procedure Growth Status 10/26/17 15:25 Urine Catheterized Urine Urine Culture - Final Escherichia Coli Esbl Positive Aerococcus Urinae Complete Vitals/IOs Vital Signs Date Time Temp Pulse Resp B/P (MAP) Pulse Ox O2 Delivery O2 Flow Rate FiO2 11/02/17 05:45 97.2 67 17 135/90 (105) 96 Intake and Output 11/02/17 11/02/17 11/03/17 08:00 16:00 00:00 Intake Total 60 ml 240 ml Output Total 300 ml Balance -240 ml 240 ml Assessment & Plan Problem List: (1) Unspecified psychosis ICD Codes: F29 - Unspecified psychosis not due to a substance or known physiological condition Assessment & Plan Patient this time continues with intermittent confusion, denying having spoken or seen his in weeks despite her having visited on multiple occasions. Patient denying any jelena delusions at this time, tolerating medication well. We will continue current treatment. Patient's continues to have reservations of patient to return home being the patient does not recall or recognize when she visits. Currently looking for health and rehabilitation Center for patient to go to continue treatment. Discharge planning in progress. Justification for Cont. Inpt. At risk for further decompensation if at lower level of care Discharge Planning To be determined. Billy Andres MD November 02, 2017 09:35
[2017-11-02] MEDS: amLODIPine BESYLATE 5 MG TAB PO SCH (10:14)
[2017-11-02] MEDS: CARVEDILOL 3.125 MG TAB PO SCH ×2 (10:14→20:44)
[2017-11-02] MEDS: FINASTERIDE 5 MG TAB PO SCH (10:14)
[2017-11-02] MEDS: CHOLECALCIFEROL (VIT D3) 1000 UNIT TAB PO SCH (10:14)
[2017-11-02] MEDS: FAMOTIDINE 20 MG TAB PO SCH ×2 (10:14→20:43)
[2017-11-02] MEDS: LISINOPRIL 5 MG TAB PO SCH (10:14)
[2017-11-02] MEDS: APIXABAN 5 MG TABLET PO SCH ×2 (10:15→20:43)
[2017-11-02] MEDS: risperiDONE 1 MG TAB PO SCH (10:15)
[2017-11-02 18:04] VITALS: BP 125/69; PULSE 66; RESP 18; TEMP 98.2; O2SAT 97
[2017-11-02] MEDS: TAMSULOSIN HCL 0.4 MG CAP PO SCH (20:43)
[2017-11-02] MEDS: DOCUSATE SODIUM 100 MG CAP PO SCH (20:43)
[2017-11-02] MEDS: ATORVASTATIN 40 MG TAB PO SCH (20:44)
[2017-11-02] MEDS: risperiDONE 3 MG TAB PO SCH (20:44)
[2017-11-03 06:00] VITALS: BP 124/84; PULSE 60; RESP 17; TEMP 97.3; O2SAT 96
[2017-11-03] MEDS: INSULIN ASPART SUPPLEMENTAL SCALE SQ SCH ×4 (08:00→21:00)
[2017-11-03] MEDS: risperiDONE 1 MG TAB PO SCH (09:09)
[2017-11-03] MEDS: CARVEDILOL 3.125 MG TAB PO SCH ×2 (09:09→21:07)
[2017-11-03] MEDS: amLODIPine BESYLATE 5 MG TAB PO SCH (09:09)
[2017-11-03] MEDS: FAMOTIDINE 20 MG TAB PO SCH ×2 (09:09→21:00)
[2017-11-03] MEDS: LISINOPRIL 5 MG TAB PO SCH (09:10)
[2017-11-03] MEDS: APIXABAN 5 MG TABLET PO SCH ×2 (09:10→21:08)
[2017-11-03] MEDS: FINASTERIDE 5 MG TAB PO SCH (09:10)
[2017-11-03] MEDS: CHOLECALCIFEROL (VIT D3) 1000 UNIT TAB PO SCH (10:53)
--- NOTE | 2017-11-03 15:38 | HHI.PYPN ---
Subjective Remarks Patient seen for follow up; chart reviewed. Discussion with nursing staff reported that the patient with no behavioral changes, not endorsing delusions. Patient was seen today with family meeting with and therapist. Patient was found to be alert and oriented x 3, noted to acknowledge his but did not speak to her until asked if he knew who she was and admitted to her being his . He was noted to be disorganized at times but with relevance to most of the conversation. Patient did not endorse any bizarre delusions. Patient's continues to be concerned and with worry of patient's initial presentation and fears of relapse of symptoms. Review of Systems Except as stated in HPI: all other systems reviewed are Neg Mental Status Examination Appearance: Appropriate Consciousness: Alert, Vigilant Orientation: Person, Place, Date/Time Motor Activity: Normal gait Speech: Unremarkable Language: Adequate Fund of Knowledge: Adequate Attention and Concentration: Adequate Memory: Unremarkable Mood: Appropriate Affect: Appropriate Thought Process & Associations: Disorganized (at times) Thought Content: Delusional (lessening) Hallucination Type: None Delusion Type: Bizarre (Did not endorse today), Paranoid (Lessening) Suicidal Ideation: No Suicidal Plan: No Suicidal Intention: No Homicidal Ideation: No Homicidal Plan: No Homicidal Intention: No Insight: Poor Judgment: Poor Results Labs Date/Time Source Procedure Growth Status 10/26/17 15:25 Urine Catheterized Urine Urine Culture - Final Escherichia Coli Esbl Positive Aerococcus Urinae Complete Vitals/IOs Vital Signs Date Time Temp Pulse Resp B/P (MAP) Pulse Ox O2 Delivery O2 Flow Rate FiO2 11/03/17 06:00 97.3 60 17 124/84 (97) 96 Intake and Output 11/03/17 11/03/17 11/03/17 07:59 15:59 23:59 Intake Total 240 ml 240 ml Output Total 350 ml Balance -110 ml 240 ml Assessment & Plan Problem List: (1) Unspecified psychosis ICD Codes: F29 - Unspecified psychosis not due to a substance or known physiological condition Assessment & Plan Patient with occasional confusion and disorganized statements at times but likely secondary to cognitive impairments from previous injury from previous CVAs. Patient no longer endorsing delusions and simply dismisses the topic when brought up. Patient will require transition to health and rehab which treatment team is currently exploring to sending him to. Continue current treatment, discharge planning in progress. Justification for Cont. Inpt. At risk for further decompensation if at lower level of care Billy Andres MD November 03, 2017 15:38
[2017-11-03 16:47] VITALS: BP 125/73; PULSE 57; RESP 16; TEMP 97.6; O2SAT 97
[2017-11-03] MEDS: TAMSULOSIN HCL 0.4 MG CAP PO SCH (21:07)
[2017-11-03] MEDS: risperiDONE 3 MG TAB PO SCH (21:07)
[2017-11-03] MEDS: ATORVASTATIN 40 MG TAB PO SCH (21:08)
[2017-11-03] MEDS: DOCUSATE SODIUM 100 MG CAP PO SCH (21:08)
[2017-11-04 06:00] VITALS: BP 155/79; PULSE 56; RESP 18; TEMP 99.5; O2SAT 97
[2017-11-04] MEDS: INSULIN ASPART SUPPLEMENTAL SCALE SQ SCH ×4 (08:00→20:38)
[2017-11-04] MEDS: APIXABAN 5 MG TABLET PO SCH ×2 (09:43→20:40)
[2017-11-04] MEDS: FINASTERIDE 5 MG TAB PO SCH (09:44)
[2017-11-04] MEDS: CHOLECALCIFEROL (VIT D3) 1000 UNIT TAB PO SCH (09:44)
[2017-11-04] MEDS: FAMOTIDINE 20 MG TAB PO SCH ×2 (09:44→20:39)
[2017-11-04] MEDS: CARVEDILOL 3.125 MG TAB PO SCH ×2 (09:44→20:39)
[2017-11-04] MEDS: amLODIPine BESYLATE 5 MG TAB PO SCH (09:44)
[2017-11-04] MEDS: LISINOPRIL 5 MG TAB PO SCH (09:44)
[2017-11-04] MEDS: risperiDONE 1 MG TAB PO SCH (09:44)
--- NOTE | 2017-11-04 17:40 | HHI.PYPN ---
Subjective Remarks Patient seen for follow, chart reviewed. Discussion nursing staff reported the patient had been visited by today noted B, cooperative. Patient was found lying hospital bed asleep was able to wake up for interview today. Patient states that he has not seen poem writer for the past couple of weeks and was reminded that poem writer had been visited with him on a daily basis. Patient states he slept well, his mood has been "okay" was able to recall having been visited by his today stating that his interactions with her had been "better". Patient aware that he will be discharged soon to a rehabilitation center denying any perceptional service of delusions at time of interview today. Review of Systems Except as stated in HPI: all other systems reviewed are Neg Mental Status Examination Appearance: Appropriate Consciousness: Alert, Vigilant Orientation: Person, Place, Date/Time Motor Activity: Normal gait Speech: Unremarkable Language: Adequate Fund of Knowledge: Adequate Attention and Concentration: Adequate Memory: Unremarkable Mood: Appropriate Affect: Appropriate Thought Process & Associations: Other (Clay) Thought Content: Delusional (To that endorse today) Hallucination Type: None Delusion Type: Bizarre (Did not endorse today), Paranoid (Did not endorse today ) Suicidal Ideation: No Suicidal Plan: No Suicidal Intention: No Homicidal Ideation: No Homicidal Plan: No Homicidal Intention: No Insight: Poor Judgment: Poor Results Labs Date/Time Source Procedure Growth Status 10/26/17 15:25 Urine Catheterized Urine Urine Culture - Final Escherichia Coli Esbl Positive Aerococcus Urinae Complete Vitals/IOs Vital Signs Date Time Temp Pulse Resp B/P (MAP) Pulse Ox O2 Delivery O2 Flow Rate FiO2 11/04/17 06:00 99.5 56 18 155/79 (104) 97 Intake and Output 11/04/17 11/04/17 11/05/17 08:00 16:00 00:00 Intake Total 360 ml 1440 ml Balance 360 ml 1440 ml Assessment & Plan Problem List: (1) Unspecified psychosis ICD Codes: F29 - Unspecified psychosis not due to a substance or known physiological condition Assessment & Plan Patient this time noted to have intermittent confusion, poor recall as he did not recognize poem writer at this physician. Patient was able to recall recent visit with which went well. Patient did not endorse any perceptual disturbances or delusions today. We will continue current treatment. We will continue to monitor mood and behavior. Patient to be discharged to a rehabilitation center soon. Justification for Cont. Inpt. At risk of further decompensation a lower level of care. Discharge Planning Patient to be discharged to a rehabilitation center upon discharge. Billy Andres MD November 04, 2017 17:40
[2017-11-04 18:01] VITALS: BP 110/69; PULSE 80; RESP 16; TEMP 97.8; O2SAT 96
[2017-11-04] MEDS: diphenhydrAMINE HCL 50 MG CAP PO PRN (20:39)
[2017-11-04] MEDS: risperiDONE 3 MG TAB PO SCH (20:39)
[2017-11-04] MEDS: ATORVASTATIN 40 MG TAB PO SCH (20:39)
[2017-11-04] MEDS: DOCUSATE SODIUM 100 MG CAP PO SCH (20:40)
[2017-11-04] MEDS: TAMSULOSIN HCL 0.4 MG CAP PO SCH (20:40)
[2017-11-05 06:35] VITALS: BP 167/84; PULSE 62; RESP 18; TEMP 97.6; O2SAT 98
[2017-11-05] MEDS: INSULIN ASPART SUPPLEMENTAL SCALE SQ SCH ×4 (08:00→20:06)
[2017-11-05] MEDS: LISINOPRIL 5 MG TAB PO SCH (08:30)
[2017-11-05] MEDS: risperiDONE 1 MG TAB PO SCH (08:30)
[2017-11-05] MEDS: FINASTERIDE 5 MG TAB PO SCH (08:30)
[2017-11-05] MEDS: FAMOTIDINE 20 MG TAB PO SCH ×2 (08:30→20:56)
[2017-11-05] MEDS: APIXABAN 5 MG TABLET PO SCH ×2 (08:30→20:57)
[2017-11-05] MEDS: CARVEDILOL 3.125 MG TAB PO SCH ×2 (08:30→20:56)
[2017-11-05] MEDS: CHOLECALCIFEROL (VIT D3) 1000 UNIT TAB PO SCH (08:30)
[2017-11-05] MEDS: LORazepam 0.5 MG TAB PO PRN (08:31)
[2017-11-05] MEDS: amLODIPine BESYLATE 5 MG TAB PO SCH (08:31)
--- NOTE | 2017-11-05 09:24 | PD.TTN ---
Patient Problems 1. Discharge planning 2. Medication compliance 3. Knowledge deficit 4. Lack of coping skills Progress Toward Goals Provider Present: Dr. Jean Claude Andres (10/26/17- Pt. has court tomorrow. Pt.'s paranoia is starting to lift.) Provider Input: 11/03/2017; family meeting schedule to disucss patient progress, patient is showing some progress, less anxious mood and paranoid behavior has lessen Dr. Andres had his treatment team meeting to discuss patient's discharge, medication, and treatment. Patient continues to present delusional, is medication compliant, will be changing medication Nurse(s) Present: RN Nurse(s) Input: 11/03/2017: Patient is eating meals and taking his medications, requires redirection with thoughts and belief. Patient is disorganized, parnoid, confused and anxious. Patient denies suicidal and homicidal ideation Psychiatric Counselors Present: ALEXIS Lim, FIFI Maradiaga Psych Therapist Input: 11/03/2017; counselor will meet with patient, family and doctor to discuss placement, dc needs and current status Patient presents confused and disoriented. Patient was seen in his room, wearing only his underwear walking around his room. Patient had completely disorganized his room, turned his mattress over, pulled off his sheets and put them on the floor. Patient denied suicidal and homicidal ideation. Patient continues to present with paranoia Group Spec/RT/OT/[place] Present: Alfredo Hammer OT (10/26/17- Pt. does not attend groups.Pt. requires redirection and is easily overwhelmed.) Group Spec/RT/OT/[place] Input: 11/03/2017; patient will be encouraged to attend groups Patient does not participate in groups Occupational Therapist Input: pt has not been attending groups; isolating to room most times, Other Clinican Input: counselor and MD; pt continues to exhibit symptoms, he meets criteria. Documentation Scribe: Brook Ramirez November 05, 2017 09:23
--- NOTE | 2017-11-05 16:01 | HHI.PYPN ---
Subjective Remarks Patient seen for follow, chart reviewed. Discussion nursing staff reported the patient upset this morning as he has a different back for his [employer]. Patient was found lying hospital bed noted be somewhat irritable stating that staff had redirected her back to his room as he is currently on contact precautions. Patient also was noted to be somewhat bothered by having a different back when she has to carry around as it is bigger than his previous back. Patient was encouraged to continue with current management as [facility] and agreed. Patient reports sleeping well, denies any perceptual disturbances, did not endorse any delusions today. Patient continues to recall having been visited by his recently. Review of Systems Except as stated in HPI: all other systems reviewed are Neg Mental Status Examination Appearance: Appropriate Consciousness: Alert, Vigilant Orientation: Person, Place, Date/Time Motor Activity: Normal gait Speech: Unremarkable Language: Adequate Fund of Knowledge: Adequate Attention and Concentration: Adequate Memory: Unremarkable Mood: Appropriate Affect: Appropriate Thought Process & Associations: Other ([place]) Thought Content: Delusional (Did not endorse today) Hallucination Type: None Delusion Type: Bizarre (Did not endorse today), Paranoid (Did not endorse today ) Suicidal Ideation: No Suicidal Plan: No Suicidal Intention: No Homicidal Ideation: No Homicidal Plan: No Homicidal Intention: No Insight: Poor Judgment: Poor Results Labs Date/Time Source Procedure Growth Status 10/26/17 15:25 Urine Catheterized Urine Urine Culture - Final Escherichia Coli Esbl Positive Aerococcus Urinae Complete Vitals/IOs Vital Signs Date Time Temp Pulse Resp B/P (MAP) Pulse Ox O2 Delivery O2 Flow Rate FiO2 11/05/17 06:35 97.6 62 18 167/84 (111) 98 Intake and Output 11/05/17 11/05/17 11/06/17 08:00 16:00 00:00 Intake Total 0 ml 720 ml Output Total 275 ml Balance -275 ml 720 ml Assessment & Plan Problem List: (1) Unspecified psychosis ICD Codes: F29 - Unspecified psychosis not due to a substance or known physiological condition Assessment & Plan Patient continues to have stable mood, no longer endorsing delusions or perceptual disturbances continues to have neurocognitive deficits. Patient scheduled for discharge on 11/08/17 to a health and rehab facility. Continue current treatment. Continue monitor mood and behavior. Discharge planning in progress. Justification for Cont. Inpt. At risk of further decompensation at lower level of care. Discharge Planning Patient be discharged to a health and rehab facility. Billy Andres MD November 05, 2017 16:01
[2017-11-05 18:14] VITALS: BP 114/73; PULSE 73; RESP 18; TEMP 97.7; O2SAT 97
[2017-11-05] MEDS: ATORVASTATIN 40 MG TAB PO SCH (20:56)
[2017-11-05] MEDS: TAMSULOSIN HCL 0.4 MG CAP PO SCH (20:56)
[2017-11-05] MEDS: DOCUSATE SODIUM 100 MG CAP PO SCH (20:56)
[2017-11-05] MEDS: risperiDONE 3 MG TAB PO SCH (20:56)
[2017-11-05] MEDS: diphenhydrAMINE HCL 50 MG CAP PO PRN (20:56)
[2017-11-06 06:00] VITALS: BP 95/64; PULSE 86; RESP 16; TEMP 98.3; O2SAT 96
[2017-11-06] MEDS: INSULIN ASPART SUPPLEMENTAL SCALE SQ SCH ×4 (07:34→19:46)
[2017-11-06] MEDS: LISINOPRIL 5 MG TAB PO SCH (08:30)
[2017-11-06] MEDS: CARVEDILOL 3.125 MG TAB PO SCH ×2 (08:30→21:03)
[2017-11-06] MEDS: amLODIPine BESYLATE 5 MG TAB PO SCH (08:30)
[2017-11-06] MEDS: risperiDONE 1 MG TAB PO SCH (08:36)
[2017-11-06] MEDS: FAMOTIDINE 20 MG TAB PO SCH ×2 (08:36→21:03)
[2017-11-06] MEDS: APIXABAN 5 MG TABLET PO SCH ×2 (08:36→21:03)
[2017-11-06] MEDS: CHOLECALCIFEROL (VIT D3) 1000 UNIT TAB PO SCH (08:36)
[2017-11-06] MEDS: FINASTERIDE 5 MG TAB PO SCH (08:36)
--- NOTE | 2017-11-06 15:02 | HHI.PYPN ---
Subjective Remarks Reviewed electronic medical record and discussed case with staff. Nurse reports that the patient has been compliant with his medications and there is been no behaviors. Follow-up performed in patient's room with nurse present. Patient reports that he slept well however, he "hates the food". He reports that he does not like this "hotel". Remains confused and disorganized. However his mood seems good and his affect is euthymic. Mental Status Examination Appearance: Appropriate Consciousness: Alert, Vigilant Orientation: Person, Place, Date/Time Motor Activity: Normal gait Speech: Unremarkable Language: Adequate Fund of Knowledge: Adequate Attention and Concentration: Adequate Memory: Unremarkable Mood: Appropriate Affect: Appropriate Thought Process & Associations: Other ([place]) Thought Content: Delusional (Did not endorse today) Hallucination Type: None Delusion Type: Bizarre (Did not endorse today), Paranoid (Did not endorse today ) Suicidal Ideation: No Suicidal Plan: No Suicidal Intention: No Homicidal Ideation: No Homicidal Plan: No Homicidal Intention: No Insight: Poor Judgment: Poor Results Labs Date/Time Source Procedure Growth Status 10/26/17 15:25 Urine Catheterized Urine Urine Culture - Final Escherichia Coli Esbl Positive Aerococcus Urinae Complete Vitals/IOs Vital Signs Date Time Temp Pulse Resp B/P (MAP) Pulse Ox O2 Delivery O2 Flow Rate FiO2 11/06/17 06:00 98.3 86 16 95/64 (74) 96 Intake and Output 11/06/17 11/06/17 11/07/17 08:00 16:00 00:00 Intake Total 240 ml 240 ml Balance 240 ml 240 ml Assessment & Plan Problem List: (1) Unspecified psychosis ICD Codes: F29 - Unspecified psychosis not due to a substance or known physiological condition Assessment & Plan Estimated LOS: Continue with current treatment plan. Per previous documentation patient should be discharged in approximately 2 days Justification for Cont. Inpt. Moving this patient to a lower level of care would likely result in a decompensation. Discharge plan is in place. Meagan Thomas November 06, 2017 15:02
[2017-11-06 17:56] VITALS: BP 134/82; PULSE 70; RESP 16; TEMP 97.9; O2SAT 98
[2017-11-06] MEDS: ATORVASTATIN 40 MG TAB PO SCH (21:00)
[2017-11-06] MEDS: TAMSULOSIN HCL 0.4 MG CAP PO SCH (21:03)
[2017-11-06] MEDS: risperiDONE 3 MG TAB PO SCH (21:03)
[2017-11-06] MEDS: DOCUSATE SODIUM 100 MG CAP PO SCH (21:03)
[2017-11-06] MEDS: diphenhydrAMINE HCL 50 MG CAP PO PRN (21:03)
[2017-11-07 07:55] VITALS: BP 108/63; PULSE 64; RESP 14; TEMP 98.5; O2SAT 97
[2017-11-07] MEDS: INSULIN ASPART SUPPLEMENTAL SCALE SQ SCH ×4 (07:55→21:00)
[2017-11-07] MEDS: CARVEDILOL 3.125 MG TAB PO SCH ×2 (08:35→22:03)
[2017-11-07] MEDS: amLODIPine BESYLATE 5 MG TAB PO SCH (08:36)
[2017-11-07] MEDS: LISINOPRIL 5 MG TAB PO SCH (08:36)
[2017-11-07] MEDS: FAMOTIDINE 20 MG TAB PO SCH ×2 (08:40→22:03)
[2017-11-07] MEDS: risperiDONE 1 MG TAB PO SCH (08:40)
[2017-11-07] MEDS: APIXABAN 5 MG TABLET PO SCH ×2 (08:40→22:03)
[2017-11-07] MEDS: FINASTERIDE 5 MG TAB PO SCH (08:40)
[2017-11-07] MEDS: CHOLECALCIFEROL (VIT D3) 1000 UNIT TAB PO SCH (08:41)
--- NOTE | 2017-11-07 09:00 | HHI.PYPN ---
Subjective Remarks Chart reviewed and patient discussed with NÉSTOR Ovalles. Patient is in his hospital bed. States he is eating and sleeping well. Continues to be disorganized and slightly confused. No anxiety noted. Cooperative and engaging in conversation. Continue to work on placement. Mental Status Examination Appearance: Appropriate Consciousness: Alert, Vigilant Orientation: Person, Place, Date/Time Motor Activity: Normal gait Speech: Unremarkable Language: Adequate Fund of Knowledge: Adequate Attention and Concentration: Adequate Memory: Unremarkable Mood: Appropriate Affect: Appropriate Thought Process & Associations: Other ([place]) Thought Content: Delusional (Did not endorse today) Hallucination Type: None Delusion Type: Bizarre (Did not endorse today), Paranoid (Did not endorse today ) Suicidal Ideation: No Suicidal Plan: No Suicidal Intention: No Homicidal Ideation: No Homicidal Plan: No Homicidal Intention: No Insight: Poor Judgment: Poor Results Labs Date/Time Source Procedure Growth Status 10/26/17 15:25 Urine Catheterized Urine Urine Culture - Final Escherichia Coli Esbl Positive Aerococcus Urinae Complete Vitals/IOs Vital Signs Date Time Temp Pulse Resp B/P (MAP) Pulse Ox O2 Delivery O2 Flow Rate FiO2 11/07/17 07:55 98.5 64 14 108/63 (78) 97 Intake and Output 11/07/17 11/07/17 11/08/17 08:00 16:00 00:00 Intake Total 360 ml Balance 360 ml Assessment & Plan Problem List: (1) Unspecified psychosis ICD Codes: F29 - Unspecified psychosis not due to a substance or known physiological condition Assessment & Plan Estimated LOS: days Justification for Cont. Inpt. Moving this patient to a lower level of care would likely result in a decompensation. Discharge plan is in place. An Downing November 07, 2017 09:00
[2017-11-07 17:23] VITALS: BP 124/75; PULSE 60; RESP 18; TEMP 97.4; O2SAT 98
[2017-11-07] MEDS: ATORVASTATIN 40 MG TAB PO SCH (22:02)
[2017-11-07] MEDS: DOCUSATE SODIUM 100 MG CAP PO SCH (22:03)
[2017-11-07] MEDS: risperiDONE 3 MG TAB PO SCH (22:03)
[2017-11-07] MEDS: diphenhydrAMINE HCL 50 MG CAP PO PRN (22:03)
[2017-11-07] MEDS: TAMSULOSIN HCL 0.4 MG CAP PO SCH (22:03)
[2017-11-08 06:18] VITALS: BP 130/82; PULSE 63; RESP 18; TEMP 97.8; O2SAT 97
[2017-11-08] MEDS: INSULIN ASPART SUPPLEMENTAL SCALE SQ SCH ×2 (08:00→11:47)
[2017-11-08] MEDS: CHOLECALCIFEROL (VIT D3) 1000 UNIT TAB PO SCH (10:41)
[2017-11-08] MEDS: APIXABAN 5 MG TABLET PO SCH (10:42)
[2017-11-08] MEDS: risperiDONE 1 MG TAB PO SCH (10:42)
[2017-11-08] MEDS: LISINOPRIL 5 MG TAB PO SCH (10:42)
[2017-11-08] MEDS: FINASTERIDE 5 MG TAB PO SCH (10:42)
[2017-11-08] MEDS: FAMOTIDINE 20 MG TAB PO SCH (10:42)
[2017-11-08] MEDS: CARVEDILOL 3.125 MG TAB PO SCH (10:42)
[2017-11-08] MEDS: amLODIPine BESYLATE 5 MG TAB PO SCH (10:43)
[2017-11-08] MEDS ORDERED: RISP2TAB2 PO (11:02)
[2017-11-08] MEDS ORDERED: APIX5TAB PO (11:02)
[2017-11-08] MEDS ORDERED: FINA5TAB2 PO (11:02)
[2017-11-08] MEDS ORDERED: COLA100C5 PO (11:02)
[2017-11-08] MEDS ORDERED: CARV3.12 PO (11:02)
[2017-11-08] MEDS ORDERED: CHOL1000 PO (11:02)
[2017-11-08] MEDS ORDERED: TAMS0.4C4 PO (11:02)
[2017-11-08] MEDS ORDERED: ATOR40TA16 PO (11:02)
[2017-11-08] MEDS ORDERED: AMLO5 PO (11:02)
[2017-11-08] MEDS ORDERED: RISP3 PO (11:02)
[2017-11-08] MEDS ORDERED: FAMO20TA2 PO (11:02)
[2017-11-08] MEDS ORDERED: LISI-519 PO (11:02)
--- NOTE | 2017-11-08 11:03 | HHI.DS ---
Psychiatry Discharge Summary Inpatient Psychiatric care?: Yes Advance Directive: Yes Mental Health AdvanceDirective: No Health Care Proxy: No Admission Admission Date Oct 18, 2017 at 18:45 Admission Diagnosis: (1) Unspecified psychosis ICD Code: F29 - Unspecified psychosis not due to a substance or known physiological condition Brief History Patient is a 72-year-old man, with no formal past psychiatric history , no previous psychiatric admissions, no previous suicide attempt or self- injurious behavior, recently seen by Dr. Horne on an outpatient basis started on Lorazepam, escitalopram, risperidone and temazepam, with a past medical history significant for CVA x3, CAD s/p CABG October 2016, HTN, HLD, nonmalignant brain tumor, neurogenic bladder with indwelling catheter, who was brought into the ED under [facility] act due to altered mental status, hallucinations, paranoia, locking self in the neighbor's garage for weeks and hiding knives which patient was admitted to the inpatient psychiatry unit for further evaluation and management. Patient was found in blade on the unit at times noted to be attending to exit the unit but noted B, cooperative. Patient states that "finally I am okay" and he reports having stress for the past 6 days mentioning that he has started in his community. Patient states that he has noticing things in the community "[place] is invading" and that his has introduce them and invited them which he was very concerned about. Patient also states having noticed "devices that should bullets on the shields" and having noticed them in his bathroom moving around feeling that the Russians want to kill him. Patient is alert and oriented 3. Patient believes that he is here in the hospital due to difficulty or complications from a urinary catheter. Patient at this time reports feeling "average" reporting auditory hallucinations "sometimes" denying any visual hallucinations other than his previous report of seeing these devices on the shields. Patient continues to endorse paranoid ideations, persecutory delusions. Collateral information was obtained by patient's Ny Zuniga [phone], reports that they have been made behavioral changes since after patient's heart surgery in October 1999 team which he has suffered a complication of air embolism to the brain and reports patient having had a history of previous strokes in the past. Patient states that patient has started seeing things, things moving in the house, and had noticed that patient was having a big knife for protection under a napkin which she felt very scared. She also reported that patient had stated being afraid of a box in the hallway of the home stating that the bottle sending signals to him and that there was a body in there. She also mentions that they have been neighbors have been afraid of him due to his recent paranoia. She also reports the patient was seen by Dr. Agudelo on 2 previous occasions and had been started on Lorazepam 0.5 mg p.o. twice daily escitalopram, risperidone 0.5 twice daily and increase to 1 mg p.o. twice daily recently along with temazepam, last seen on 10/15/17. She states that she feels that the medications have not been working. She agrees to be patient's healthcare surrogate and guardian advocate during this admission and consented to starting of medications after the reviewed with her. The patient is a 72-year-old [place] man, domiciled with his , no previous psychiatric history medical history of HTN, CVA, CAD, brain tumor, urinary incontinence, who was admitted in the hospital due to paranoia and bizarre delusions. Consulted to me for second opinion. On psychiatric evaluation the patient is calm, cooperative, talkative. He is evaluated in the recreational area of the unit. Patient reports that the reason he is here is because nobody believe that there is an invasion of [place] in the [place]. He reports that Dev[place]'s name means in [place] "take the world", and for this reason he knows that [place] is in a huge danger. Other than that the patient is oriented 3, he denies suicidal and homicidal ideation, he denies visual and auditory hallucinations. Tobacco Use In Past 30 Days: No Tobacco Past 30 Days Alcohol Use: Monthly or Less Hospital Course Patient is a 72-year-old man, with no formal past psychiatric history , no previous psychiatric admissions, no previous suicide attempt or self- injurious behavior, recently seen by Dr. Horne on an outpatient basis started on Lorazepam, escitalopram, risperidone and temazepam, with a past medical history significant for CVA x3, CAD s/p CABG October 2016, HTN, HLD, nonmalignant brain tumor, neurogenic bladder with indwelling catheter, who was brought into the ED under [facility] act due to altered mental status, hallucinations, paranoia, locking self in the neighbor's garage for weeks and hiding knives which patient was admitted to the inpatient psychiatry unit for further evaluation and management.. Patient was started on risperidone and titrated up to 2mg am/3mg HS, along with mediation regimen for chronic medical illnesses which he tolerated well with no noted side effects. Patient was noted to have progressive decrease into his paranoia, delusions and hallucinations although would continue to have intermittent confusion secondary to neurocognitive deficits from previous organic injury. Patient was noted to be cooperative with staff, no behavioral disturbances or aggressive behavior during admission. Patient was followed by primary medical team and treated for UTI which he tolerated well and continued with medical management. Upon discharge patient reported feeling okay denied any perceptual disturbances, deluisons nor suicidal ideations or homicidal ideations. Patient agreed to continue treatment and follow up appointments for continuity of care. Patient agreed to transfer to health and rehabilitation facility which he was accepted to. Patients aware and agrees with plan. Patient advised to call 911 or go nearest ED in case of emergency. Patient agreed with plan. Results Blood Pressure 130 / 82 Vital Signs Date Time Temp Pulse Resp B/P (MAP) Pulse Ox O2 Delivery O2 Flow Rate FiO2 11/08/17 06:18 97.8 63 18 130/82 (98) 97 Laboratory Results Test 10/19/17 06:38 10/23/17 07:26 Cholesterol Level 185 MG/DL (120-200) HDL Cholesterol 50.1 MG/DL (40.0-60.0) LDL Cholesterol 118 MG/DL (0-99) Triglycerides Level 85 MG/DL (42-150) Hemoglobin A1c 6.3 % (4.3-6.0) Summary of Procedures None Imaging Last Impressions Head CT 10/17/17 1517 Signed Impressions: Service Date/Time: Tuesday, October 17, 2017 15:25 - CONCLUSION: 1. 2.7 x 2.0 cm peripherally calcified left posterior parietal extra-axial mass near the vertex likely reflecting meningioma. Further characterization may be performed with contrast-enhanced MRI exam on an outpatient basis if this has not been previously evaluated. 2. Encephalomalacia in the left posterior frontal high convexities near vertex, left occipital lobe, and right frontal mid to high convexities consistent with prior infarcts. 3. Otherwise, no acute intracranial abnormality. Carlos Dougherty MD Chest X-Ray 10/17/17 1517 Signed Impressions: Service Date/Time: Tuesday, October 17, 2017 15:34 - CONCLUSION: 1. Minimal bibasilar airspace disease, presumably atelectasis. 2. Otherwise, no acute abnormality. Carlos Dougherty MD Pending results at discharge: No Medications # of Antipsychotic meds at D/C: 1 Approp Antipsych med options 1 - Minimum of three failed multiple trials of monotherapy. 2 - Documented plan to taper to monotherapy due to previous use of multiple meds OR cross-taper in progress at D/C. 3 - Documentation of augmentation of Clozapine. 4 - Justification other than those listed in allowable values 1-3, document here : Discharge Discharge Date: November 08, 2017 Discharge Diagnosis: (1) Unspecified psychosis ICD Code: F29 - Unspecified psychosis not due to a substance or known physiological condition Pt Condition on Discharge: Stable Discharge Disposition: Discharge Home Discharge Instructions Diet Instructions: As Tolerated, No Restrictions Activities you can perform: Regular-No Restrictions Discharge Time > 30 minutes Mental Status Examination Appearance: Appropriate Consciousness: Alert Orientation: Person, Place, Date/Time Motor Activity: Normal gait Speech: Unremarkable Language: Adequate Fund of Knowledge: Adequate Attention and Concentration: Adequate Memory: Unremarkable Mood: Appropriate Affect: Appropriate Thought Process & Associations: Other ([place]) Thought Content: Appropriate Hallucination Type: None Delusion Type: None Suicidal Ideation: No Suicidal Plan: No Suicidal Intention: No Homicidal Ideation: No Homicidal Plan: No Homicidal Intention: No Insight: Poor Judgment: Impulsive Discharge/Advance Care Plan Health Problems: (1) Unspecified psychosis Goals to promote your health * To prevent worsening of your condition and complications * To maintain your health at the optimal level Directions to meet your goals Take your medications as prescribed Follow your dietary instruction Follow activity as directed Keep your appointments as scheduled Take your immunizations and boosters as scheduled If your symptoms worsen call your PCP, if no PCP go to Urgent Care Center or Emergency Room For 11/01 questions related to your inpatient stay or results of tests pending at discharge, please contact Dr. Billy Andres at Smoking is Dangerous to Your Health. Avoid second hand smoking Billy Andres MD November 08, 2017 11:03
== END 2017-11-08 11:55 | DRG 885 ==
LOC: NEPD 14:13 → NEDA 10-18 18:45 → H4EA 10-18 21:05 → H250 10-21 15:54 → H4EA 10-22 11:35
PROVIDERS: ADMIT Student in an Organized Health Care Education/Training Program; ATTEND Student in an Organized Health Care Education/Training Program
DX: F29 Unspecified psychosis not due to a substance or known physiological condition (principal); N17.9 Acute kidney failure, unspecified; G93.89 Other specified disorders of brain; R00.1 Bradycardia, unspecified; I95.2 Hypotension due to drugs; T83.511A Infection and inflammatory reaction due to indwelling urethral catheter, initial encounter; N39.0 Urinary tract infection, site not specified; I10 Essential (primary) hypertension; D49.6 Neoplasm of unspecified behavior of brain; B96.20 Unspecified Escherichia coli [E. coli] as the cause of diseases classified elsewhere; E86.0 Dehydration; E55.9 Vitamin D deficiency, unspecified; N31.9 Neuromuscular dysfunction of bladder, unspecified; D64.9 Anemia, unspecified; R41.82 Altered mental status, unspecified; E78.5 Hyperlipidemia, unspecified; F41.9 Anxiety disorder, unspecified; G47.00 Insomnia, unspecified; Z16.12 Extended spectrum beta lactamase (ESBL) resistance; F32.9 Major depressive disorder, single episode, unspecified; E11.9 Type 2 diabetes mellitus without complications; Y84.6 Urinary catheterization as the cause of abnormal reaction of the patient, or of later complication, without mention of misadventure at the time of the procedure; D32.9 Benign neoplasm of meninges, unspecified; I25.10 Atherosclerotic heart disease of native coronary artery without angina pectoris; Z86.73 Personal history of transient ischemic attack (TIA), and cerebral infarction without residual deficits; Z95.1 Presence of aortocoronary bypass graft; Z87.440 Personal history of urinary (tract) infections
CPT/HCPCS: 70450; 71045; 80048; 80053; 80061; 80307; 81001; 82140; 82306; 82607; 82948; 83036; 84443; 84484; 85025; 85610; 85730; 87077; 87086; 87186; 93005; 96365; J0696; J1815; J7030; Q0163

== ENCOUNTER 2018-01-17 17:04 | Inpatient (IN) ==
--- NOTE | 2018-01-17 17:54 | ED ---
HPI General Chief Complaint: Psychiatric Symptoms Stated Complaint: Psych eval / POPD Time Seen by Provider: 01/17/18 17:41 Source: patient Mode of arrival: ambulatory Limitations: no limitations History of Present Illness HPI Narrative: 72-year-old male presents emergency department as a Hu act with suicidal ideations. Patient states that he wants to take poison and suffocate himself so that his is taking care of. He states that he wants to take care of his financially by killing himself. Patient denies history of depression or other psychiatric issues. He says that he has a catheter because of "abnormal pee" He denies fevers or chills. Denies chest pain or shortness of breath. Denies illicit drug use or alcohol use. MD complaint: suicidal ideation History of same: No Relieving factors: none Exacerbating factors: none Related Data Home Medications Medication Instructions Recorded Confirmed amlodipine 5 mg PO DAILY 01/17/18 01/17/18 aspirin 325 mg PO DAILY 01/17/18 01/17/18 bupropion HCl [Wellbutrin SR] 150 mg PO DAILY 01/17/18 01/17/18 lisinopril 5 mg PO DAILY 01/17/18 01/17/18 risperidone 3 mg PO DAILY 01/17/18 01/17/18 sertraline 25 mg PO DAILY 01/17/18 01/17/18 temazepam 15 mg PO DAILY 01/17/18 01/17/18 Previous Rx's Medication Instructions Recorded sulfamethoxazole-trimethoprim 1 tab PO Q12H #14 tab 01/17/18 [Bactrim DS] Allergies Allergy/AdvReac Type Severity Reaction Status Date / Time No Known Allergies Allergy Unverified 10/17/17 15:07 Review of Systems Except as stated in HPI: all other systems reviewed are negative [facility] Social History Social History Substance History: No History of Abuse Smoking Status: Unknown if ever smoked How Often Do You Have a Drink Containing Alcohol: Unable to Obtain Recent Travel in [place] within the Last 8 Weeks: No Recent Out of Country Travel within the Last 8 Weeks: No Exam Narrative Exam Narrative: GENERAL: WD, thin in NAD SKIN: Focused skin assessment warm/dry. HEAD: Atraumatic. Normocephalic. EYES: Pupils equal and round. No scleral icterus. No injection or drainage. ENT: No nasal bleeding or discharge. Mucous membranes pink and moist. NECK: Trachea midline. No JVD. CARDIOVASCULAR: Regular rate and rhythm. No murmur appreciated. RESPIRATORY: No accessory muscle use. Clear to auscultation. Breath sounds equal bilaterally. GASTROINTESTINAL: Abdomen soft, non-tender, nondistended. Hepatic and splenic margins not palpable. MUSCULOSKELETAL: No obvious deformities. No clubbing. No cyanosis. No edema. No TTP to calves NEUROLOGICAL: Awake and alert. No obvious cranial nerve deficits. Motor grossly within normal limits. Normal speech. PSYCHIATRIC: Appropriate mood and affect; insight and judgment normal. Course Initial Documented Vital Signs Temperature 98.2 F 01/17/18 17:25 Pulse Rate 75 01/17/18 17:25 Blood Pressure 154/94 H 01/17/18 17:25 Pulse Oximetry 97 01/17/18 17:25 Last Documented Vital Signs Temperature 97.5 F L 01/21/18 06:00 Pulse Rate 83 01/21/18 06:00 Respiratory Rate 18 01/21/18 06:00 Blood Pressure 147/101 H 01/21/18 06:00 Pulse Oximetry 97 01/21/18 06:00 Medical Decision Making MDM Narrative Medical decision making narrative: 72y male presents to the ED as a Hu Act for SI. Vital signs stable. Labs are stable. Cleared to see psych. Differential Diagnosis Differential Diagnosis: polysubstance abuse, suicidal ideations, homicidal ideations, substance abuse Lab Data Result diagrams: 01/17/18 18:05 01/21/18 06:10 Lab Results 01/17/18 01/17/18 01/17/18 Range/Units 18:05 18:05 18:15 WBC 8.0 (4.0-11.0) th/mm3 RBC 4.35 L (4.50-5.90) mil/mm3 Hgb 14.1 (13.0-17.0) gm/dL Hct 41.6 (39.0-51.0) % MCV 95.7 (80.0-100.0) fL MCH 32.4 (27.0-34.0) pg MCHC 33.9 (32.0-36.0) % RDW 14.2 (11.6-17.2) % Plt Count 216 (150-450) th/mm3 MPV 10.8 (7.0-11.0) fL Neut % (Auto) 69.2 (16.0-70.0) % Lymph % (Auto) 20.7 (9.0-44.0) % [place] % (Auto) 8.7 H (0.0-8.0) % Eos % (Auto) 0.9 (0.0-4.0) % Baso % (Auto) 0.5 (0.0-2.0) % Neut # (Auto) 5.5 (1.8-7.7) th/mm3 Lymph # (Auto) 1.6 (1.0-4.8) th/mm3 [place] # (Auto) 0.7 (0.0-0.9) th/mm3 Eos # (Auto) 0.1 (0.0-0.4) th/mm3 Baso # (Auto) 0.0 (0.0-0.2) th/mm3 WBC Differential . Differential Comment Auto diff final Sodium 140 (136-145) meq/L Potassium 3.7 (3.5-5.1) meq/L Chloride 105 (98-107) meq/L Carbon Dioxide 28.1 (21.0-32.0) meq/L Anion Gap 7 (5-15) meq/L BUN 18 (7-18) mg/dL Creatinine 1.18 (0.60-1.30) mg/dL Estimated GFR 61 L (>89) mL/min Random Glucose 119 H (74-106) mg/dL Hemoglobin A1c (4.3-6.0) % Calcium 8.7 (8.5-10.1) mg/dL Total Bilirubin 0.4 (0.2-1.0) mg/dL AST 9 L (15-37) U/L ALT 17 (12-78) U/L Alkaline Phosphatase 70 (45-117) U/L Total Protein 7.1 (6.4-8.2) g/dL Albumin 3.8 (3.4-5.0) g/dL Triglycerides (42-150) mg/dL Cholesterol (120-200) mg/dL LDL Cholesterol, Calc (0-99) mg/dL HDL Cholesterol (40.0-60.0) mg/dL Cholesterol/HDL Ratio Ratio TSH 1.430 (0.358-3.740) uIU/mL Urine Color Vivi (Yellw/Straw) Urine Clarity Turbid H (Clear) Urine pH 5.0 (5.0-8.5) Ur Specific [place] 1.023 (1.002-1.035) Urine Protein 30 H (Neg-Trace) mg/dL Urine Glucose (UA) 50 (Negative) mg/dL Urine Ketones Negative (Negative) mg/dL Urine Occult Blood Small H (Negative) Urine Nitrate Positive H (Negative) Urine Bilirubin Negative (Negative) Urine Urobilinogen 4 or greater (Less than 2) mg/dL Ur Leukocyte Esterase Large H (Negative) Urine RBC 12 H (0-3) /hpf Urine WBC (0-5) /hpf Urine WBC Clumps Rare H (None) Urine Bacteria Moderate H (None) /hpf Urine Mucus Few H (Occasional) /lpf Micro UA Comment Cath-culture ind Urine Culture Comments Cath-cult indicated Urine Opiates Screen (Neg) Ur Barbiturates Screen (Neg) Ur Amphetamines Screen (Neg) U Benzodiazepines Scrn (Neg) Urine Cocaine Screen (Neg) U Cannabinoids Screen (Neg) Serum Alcohol Less than 3 (0-5) mg/dL 01/17/18 01/20/18 01/20/18 Range/Units 18:15 08:02 08:02 WBC (4.0-11.0) th/mm3 RBC (4.50-5.90) mil/mm3 Hgb (13.0-17.0) gm/dL Hct (39.0-51.0) % MCV (80.0-100.0) fL MCH (27.0-34.0) pg MCHC (32.0-36.0) % RDW (11.6-17.2) % Plt Count (150-450) th/mm3 MPV (7.0-11.0) fL Neut % (Auto) (16.0-70.0) % Lymph % (Auto) (9.0-44.0) % [place] % (Auto) (0.0-8.0) % Eos % (Auto) (0.0-4.0) % Baso % (Auto) (0.0-2.0) % Neut # (Auto) (1.8-7.7) th/mm3 Lymph # (Auto) (1.0-4.8) th/mm3 [place] # (Auto) (0.0-0.9) th/mm3 Eos # (Auto) (0.0-0.4) th/mm3 Baso # (Auto) (0.0-0.2) th/mm3 WBC Differential Differential Comment Sodium 141 (136-145) meq/L Potassium 3.5 (3.5-5.1) meq/L Chloride 105 (98-107) meq/L Carbon Dioxide 25.8 (21.0-32.0) meq/L Anion Gap 10 (5-15) meq/L BUN 20 H (7-18) mg/dL Creatinine 1.66 H (0.60-1.30) mg/dL Estimated GFR 41 L (>89) mL/min Random Glucose 136 H (74-106) mg/dL Hemoglobin A1c 6.1 H (4.3-6.0) % Calcium 9.4 (8.5-10.1) mg/dL Total Bilirubin (0.2-1.0) mg/dL AST (15-37) U/L ALT (12-78) U/L Alkaline Phosphatase (45-117) U/L Total Protein (6.4-8.2) g/dL Albumin (3.4-5.0) g/dL Triglycerides 86 (42-150) mg/dL Cholesterol 177 (120-200) mg/dL LDL Cholesterol, Calc 91 (0-99) mg/dL HDL Cholesterol 69.1 H (40.0-60.0) mg/dL Cholesterol/HDL Ratio 2.56 Ratio TSH (0.358-3.740) uIU/mL Urine Color (Yellw/Straw) Urine Clarity (Clear) Urine pH (5.0-8.5) Ur Specific [place] (1.002-1.035) Urine Protein (Neg-Trace) mg/dL Urine Glucose (UA) (Negative) mg/dL Urine Ketones (Negative) mg/dL Urine Occult Blood (Negative) Urine Nitrate (Negative) Urine Bilirubin (Negative) Urine Urobilinogen (Less than 2) mg/dL Ur Leukocyte Esterase (Negative) Urine RBC (0-3) /hpf Urine WBC (0-5) /hpf Urine WBC Clumps (None) Urine Bacteria (None) /hpf Urine Mucus (Occasional) /lpf Micro UA Comment Urine Culture Comments Urine Opiates Screen Neg (Neg) Ur Barbiturates Screen Neg (Neg) Ur Amphetamines Screen Neg (Neg) U Benzodiazepines Scrn Pos H (Neg) Urine Cocaine Screen Neg (Neg) U Cannabinoids Screen Neg (Neg) Serum Alcohol (0-5) mg/dL 01/20/18 01/21/18 Range/Units 08:40 06:10 WBC (4.0-11.0) th/mm3 RBC (4.50-5.90) mil/mm3 Hgb (13.0-17.0) gm/dL Hct (39.0-51.0) % MCV (80.0-100.0) fL MCH (27.0-34.0) pg MCHC (32.0-36.0) % RDW (11.6-17.2) % Plt Count (150-450) th/mm3 MPV (7.0-11.0) fL Neut % (Auto) (16.0-70.0) % Lymph % (Auto) (9.0-44.0) % [place] % (Auto) (0.0-8.0) % Eos % (Auto) (0.0-4.0) % Baso % (Auto) (0.0-2.0) % Neut # (Auto) (1.8-7.7) th/mm3 Lymph # (Auto) (1.0-4.8) th/mm3 [place] # (Auto) (0.0-0.9) th/mm3 Eos # (Auto) (0.0-0.4) th/mm3 Baso # (Auto) (0.0-0.2) th/mm3 WBC Differential Differential Comment Sodium 142 (136-145) meq/L Potassium 3.5 (3.5-5.1) meq/L Chloride 107 (98-107) meq/L Carbon Dioxide 27.2 (21.0-32.0) meq/L Anion Gap 8 (5-15) meq/L BUN 19 H (7-18) mg/dL Creatinine 1.32 H (0.60-1.30) mg/dL Estimated GFR 54 L (>89) mL/min Random Glucose 92 (74-106) mg/dL Hemoglobin A1c (4.3-6.0) % Calcium 8.7 (8.5-10.1) mg/dL Total Bilirubin (0.2-1.0) mg/dL AST (15-37) U/L ALT (12-78) U/L Alkaline Phosphatase (45-117) U/L Total Protein (6.4-8.2) g/dL Albumin (3.4-5.0) g/dL Triglycerides (42-150) mg/dL Cholesterol (120-200) mg/dL LDL Cholesterol, Calc (0-99) mg/dL HDL Cholesterol (40.0-60.0) mg/dL Cholesterol/HDL Ratio Ratio TSH (0.358-3.740) uIU/mL Urine Color Yellow (Yellw/Straw) Urine Clarity Hazy H (Clear) Urine pH 5.0 (5.0-8.5) Ur Specific [place] 1.016 (1.002-1.035) Urine Protein Negative (Neg-Trace) mg/dL Urine Glucose (UA) Negative (Negative) mg/dL Urine Ketones Negative (Negative) mg/dL Urine Occult Blood Small H (Negative) Urine Nitrate Negative (Negative) Urine Bilirubin Negative (Negative) Urine Urobilinogen 2.0 H (Less than 2) mg/dL Ur Leukocyte Esterase Moderate H (Negative) Urine RBC 2 (0-3) /hpf Urine WBC 88 H (0-5) /hpf Urine WBC Clumps (None) Urine Bacteria Many H (None) /hpf Urine Mucus (Occasional) /lpf Micro UA Comment Cath-culture ind Urine Culture Comments Cath-cult indicated Urine Opiates Screen (Neg) Ur Barbiturates Screen (Neg) Ur Amphetamines Screen (Neg) U Benzodiazepines Scrn (Neg) Urine Cocaine Screen (Neg) U Cannabinoids Screen (Neg) Serum Alcohol (0-5) mg/dL Discharge Plan Discharge Disposition Patient Disposition: 30 Still Patient Discharge Condition Condition: Stable Discharge Details Diagnosis: Suicidal ideation Physicians Team ED Provider: Cr Freeman ED Midlevel Provider: Allyssa Tavera Primary Care Provider: UNKNOWN, Attending Provider: Billy Andres Other Providers: Syed Askew Jose Status ED Status: Left Department Discharge Information Discharge Date/Time: 01/18/18 16:44
[2018-01-17 18:40] LABS: Baso % (Auto) 0.5 % (0.0-2.0); Eos # (Auto) 0.1 th/mm3 (0.0-0.4); Eos % (Auto) 0.9 % (0.0-4.0); Hematocrit 41.6 % (39.0-51.0); Hemoglobin 14.1 gm/dL (13.0-17.0); Lymph # (Auto) 1.6 th/mm3 (1.0-4.8); Lymph % (Auto) 20.7 % (9.0-44.0); Mean Corpuscular HGB Conc 33.9 % (32.0-36.0); Mean Corpuscular Hemoglobin 32.4 pg (27.0-34.0); Mean Corpuscular Volume 95.7 fL (80.0-100.0); Mean Platelet Volume 10.8 fL (7.0-11.0); Mono # (Auto) 0.7 th/mm3 (0.0-0.9); Mono % (Auto) 8.7 % (0.0-8.0); Neut # (Auto) 5.5 th/mm3 (1.8-7.7); Neut % (Auto) 69.2 % (16.0-70.0); Platelet Count 216 th/mm3 (150-450); Red Blood Count 4.35 mil/mm3 (4.50-5.90); Red Cell Distribution Width 14.2 % (11.6-17.2)
[2018-01-17 18:50] LABS: Amphetamine Screen,Urine Neg (Neg); Barbiturate Screen,Urine Neg (Neg); Cannabinoid Screen,Urine Neg (Neg); Cocaine Screen,Urine Neg (Neg)
[2018-01-17 18:51] LABS: Opiate Screen,Urine Neg (Neg)
[2018-01-17 18:55] LABS: Bacteria,Urine Moderate /hpf; Bilirubin,Urine Negative (Negative); Clarity,Urine Turbid (Clear); Color,Urine Amber (Yellw/Straw); Glucose,Urine (UA) 50 mg/dL (Negative); Leukocyte Esterase,Urine Large (Negative); Mucus,Urine Few /lpf (Occasional); Nitrite,Urine Positive (Negative); Specific Gravity,Urine 1.023 (1.002-1.035); Urobilinogen,Urine 4 or Greater mg/dL (Less than 2)
[2018-01-17 18:55] LABS: Alanine Aminotransferase 17 U/L (12-78); Albumin 3.8 g/dL (3.4-5.0); Anion Gap 7 meq/L (5-15); Aspartate Aminotransferase 9 U/L (15-37); Blood Urea Nitrogen 18 mg/dL (7-18); Calcium 8.7 mg/dL (8.5-10.1); Carbon Dioxide 28.1 meq/L (21.0-32.0); Chloride 105 meq/L (98-107); Glomerular Filtration Rate 61 mL/min (>89); Glucose,Random 119 mg/dL (74-106); Potassium 3.7 meq/L (3.5-5.1); Sodium 140 meq/L (136-145)
[2018-01-17 19:05] LABS: Alkaline Phosphatase 70 U/L (45-117); Total Protein 7.1 g/dL (6.4-8.2)
[2018-01-18] MEDS ORDERED: Sulfamethoxazole/Trimethoprim 400/80 MG Tablet PO ONE (13:19)
[2018-01-18] MEDS ORDERED: Bisacodyl 10 MG Supp RECTAL PRN (15:37)
[2018-01-18] MEDS ORDERED: Aluminum/Magnesium/Simethacone Susp 30 ML UDC PO PRN (15:37)
[2018-01-18] MEDS: Temazepam 15 MG Capsule PO SCH (20:47)
[2018-01-18] MEDS: Senna/Docusate Sodium 8.6/50 MG Tablet PO SCH (20:47)
[2018-01-19] MEDS: Senna/Docusate Sodium 8.6/50 MG Tablet PO SCH ×2 (08:34→20:19)
[2018-01-19] MEDS: Lisinopril 5 MG Tablet PO SCH (08:34)
[2018-01-19] MEDS: amLODIPine 5 MG Tablet PO SCH (08:35)
[2018-01-19] MEDS: Aspirin 325 MG Tablet PO SCH (08:36)
[2018-01-19] MEDS ORDERED: buPROPion 150 MG 12 HR Tablet PO SCH (09:00)
--- NOTE | 2018-01-19 17:09 | P.HPPSY ---
Provisional Diagnosis Admission Date: January 18, 2018 15:37 [place] I.: Adjustment disorder with depressed mood Competence Certification of Person's Competence To Provide Express and Informed Consent I have personally examined Fitz Lowe, a person being served at [facility] onJanuary 19, 2018 1652. Express and informed consent means consent voluntarily given in writing, by a competent person, after sufficient explanation and disclosure of the subject matter involved to enable the person to make a knowing and willful decision without any element of force, fraud, deceit, duress, or other form of constraint or coercion. This person is 18 years of age or older, is not now known to be incompetent to consent to treatment with a guardian advocate, and does not have a health care surrogate or proxy currently making medical treatment decisions. I have found this person to be one of the following: [] Competent to provide express and informed consent, as defined above, for voluntary admission to this facility and is competent to provide express and informed consent for treatment. He/she has the consistent capacity to make well reasoned, willful, and knowing decisions concerning his or her medical or mental health treatment. The person fully and consistently understands the purpose of the admission for examination/placement and is fully capable of personally exercising all rights assured under [place]xxx] Incompetent to provide express and informed consent to voluntary admission , and this is incompetent to provide express and informed consent to treatment. The person must be transferred to involuntary status and a petition for a guardian advocate filed with the Circuit Court. [] Refusing to provide express and informed consent to voluntary admission but is competent to provide express and informed consent for treatment. The person must be discharged or transferred to involuntary status. Form shall be completed within 24 hours of a person's arrival at the receiving facility and filed in the clinical record of each person: 1. Admitted on a voluntary basis 2. Permitted to provide express and informed consent to his/her own treatment 3. Allowed to transfer from involuntary to voluntary status 4. Prior to permitting a person to consent to his or her own treatment after having been previously found incompetent to consent to treatment. History of Present Illness Capacity: Lacks capacity History of Present Illness: Patient is a 72-year-old man, with past psychiatric history of unspecified psychosis, wine previous psychiatric admission in October 2017 here at [facility], no previous suicide attempt or self-injurious behavior, followed by Dr. Horne on an outpatient basis, with a past medical history significant for CVA x3, CAD s/p CABG October 2016, HTN, HLD, nonmalignant brain tumor, neurogenic bladder with indwelling catheter, who was brought into the ED under Hu act due to suicidal ideations at the visit with outpatient psychiatrist and was put under Hu act and sent to the ED which he was admitted to the inpatient psychiatry for further evaluation and management. As per chart patient was brought in under Hu act after patient had expressed wanting to take poison and suffocate himself so that his is taking care of financially. Patient was found heavily on the unit noted B, cooperative; seen with nurse and currently alert and oriented only to person and place. Patient is a poor historian as he has poor recollection of history but was able to state that prior to his hospitalization he was staying at a facility in [place]. Patient was not able to give accurate history of events prior to his admission stating that he had seen his psychiatrist Dr. Horne and admitted to having thoughts of wanting to hurt himself 2 weeks ago as he was concerned about the expenses for his illnesses but states that he "changed my mind" and no longer having suicidal ideations. Patient admitted to having attempted to suffocate himself with a pillow 3 weeks ago but states that he is "I am done with this now". Denying any further suicidal ideation since. Patient states that he has had no difficulty with sleep, his mood has been "average" denying feeling depressed recently, no changes in appetite energy or concentration, denying perceptual services or paranoid ideations and states has been compliant with medication and that his gives him his medications. Patient states that he is looking forward to being reunited with his to be helpful and supportive. Past psychiatric history: Previous psychiatric diagnosis of unspecified psychosis, one previous psychiatric admission here at [facility] in October 2017, no history of suicide attempt or self interest behavior. Has outpatient follow-up with Dr. Horne, recently seen as he was sent to the ED from his office after patient expressed suicidal ideation. Patient currently on buspirone SR 150 mg daily, risperidone 3 mg p.o. daily, sertraline 25 mg p.o. daily, and temazepam 50 mg p.o. at bedtime. Substance use history: Alcohol use 1 drink per day denies use of any other substances Past medical history: CVA x3, CAD s/p CABG October 2016, HTN, HLD, nonmalignant brain tumor, neurogenic bladder with indwelling catheter; currently with UTI at this time. 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 - Inpatient Certification I certify that the inpatient services were ordered in accordance with Medicare regulations governing the order. This includes certification that hospital inpatient services are reasonable and necessary and in the case of services not specified as inpatient-only under 42 CFR 419.22(n), that they are appropriately provided as inpatient services in accordance to with the 2-midnight benchmark under 43 CFR 412.3(e) I certify that inpatient psychiatric hospital services are medically necessary. Evaluation and treatment and/or diagnostic testing are expected to improve the patient's condition. The patient needs on a daily basis, active treatment furnished directly by or requiring the supervision of inpatient psychiatric facility personnel. Estimated Total Length of Stay (Days): 7 Plans for Post Hospital Care: Home Review of Systems All other systems reviewed negative except as stated in HPI PMFSH - History History Provided By: Patient, Medical Record - Medical History Medical History: Medical History (Last Updated 01/17/18 @ 18:46 by Maya Briscoe) Hypertension Stroke - Surgical History Surgical History: Surgical History (Last Updated 01/17/18 @ 17:35 by Jass Zaldivar RN) Hx of CABG - Tobacco History Smoking Status: Unknown if ever smoked - Alcohol History How Often Do You Have a Drink Containing Alcohol: Unable to Obtain - Substance Use History Substance History: No History of Abuse - Travel History Recent Travel in the [place] Within the Last 8 Weeks: No Recent Travel Out of the Country Within the Last 8 Weeks: No - Immunization History Tetanus Immunization: <5 Years Hx Influenza Vaccine This Season: No Quality Measures - Psychiatric History Violence risk to others in the last 6 months: Low Violence risk to self in the last 6 months: Elevated due to recent report of previous suicide attempt via suffocate himself with a pillow 3 weeks ago and recent suicidal ideations. - Substance Abuse History Drug or alcohol use in the past 12 months: See HPI - Patient Strengths Patient's strengths (minimum of 2): Verbal and communicative Medications and Allergies Active Medications: Active Medications Al Hydrox/Mg Hydrox/Simethicone (Mag-Al Plus Susp Liq) 30 ml PO Q6H PRN PRN Reason: DYSPEPSIA Al Hydroxide/Mg Hydroxide (Milk Of Magnesia Liq) 30 ml PO Q12H PRN PRN Reason: Mild Constipation Amlodipine Besylate (Norvasc) 5 mg PO DAILY [facility] Last Admin: 01/19/18 08:35 Dose: 5 mg Aspirin (Aspirin) 325 mg PO DAILY [facility] Last Admin: 01/19/18 08:36 Dose: Not Given Bisacodyl (Dulcolax Supp) 10 mg RECTAL DAILY PRN PRN Reason: SEVERE CONSITIPATION Bupropion HCl (Wellbutrin Sr) 150 mg PO DAILY [facility] Last Admin: 01/19/18 08:34 Dose: 150 mg Lactulose (Lactulose Liq) 30 ml PO DAILY PRN PRN Reason: SEVERE CONSITIPATION Lisinopril (Prinivil) 5 mg PO DAILY [facility] Last Admin: 01/19/18 08:34 Dose: 5 mg Risperidone (Risperdal) 3 mg PO DAILY [facility] Last Admin: 01/19/18 08:34 Dose: 3 mg Senna/Docusate Sodium (Roya-Colace) 1 tab PO BID [facility] Last Admin: 01/19/18 08:34 Dose: 1 tab Sennosides (Senokot) 17.2 mg PO Q12H PRN PRN Reason: Moderate Constipation Temazepam (Restoril) 15 mg PO DAILY@2100 [facility] Last Admin: 01/18/18 20:47 Dose: 15 mg Allergies Allergy/AdvReac Type Severity Reaction Status Date / Time No Known Allergies Allergy Unverified 10/17/17 15:07 Home Medications Medication Instructions Recorded Confirmed Type amlodipine 5 mg PO DAILY 01/17/18 01/17/18 History aspirin 325 mg PO DAILY 01/17/18 01/17/18 History bupropion HCl [Wellbutrin SR] 150 mg PO DAILY 01/17/18 01/17/18 History lisinopril 5 mg PO DAILY 01/17/18 01/17/18 History risperidone 3 mg PO DAILY 01/17/18 01/17/18 History sertraline 25 mg PO DAILY 01/17/18 01/17/18 History temazepam 15 mg PO DAILY 01/17/18 01/17/18 History Results - Labs CBC & Chem 7: 01/17/18 18:05 01/17/18 18:05 Exam Vital signs: Vital Signs 01/18/18 18:31 Temperature 97.7 F Pulse Rate 64 Respiratory Rate 16 Blood Pressure 166/105 H Pulse Oximetry 92 L Intake & Output 01/18/18 01/19/18 01/19/18 18:59 06:59 18:59 Output Total 600 / 600 Balance -600 / -600 Weight 65.317 kg Output: Urine Amount (Catheter) 600 / 600 Indwelling Urethral Catheter 600 / 600 Other: Weight On Admission 65.317 kg Narrative: At risk for further decompensation if at lower level of care - Constitutional no acute distress, thin, cooperative Mental Status Examination Appearance: Appropriate ([facility]) Consciousness: Alert Orientation: Person, Place Motor Activity: Normal gait Speech: Unremarkable Language: Adequate (Noted with Eastern accent) Fund of Knowledge: Inadequate Attention and Concentration: Inadequate Memory: Impaired Mood: Other ("Okay") Affect: Blunt Thought Process & Associations: Disorganized (At times), Other ([place]) Thought Content: Appropriate Hallucination Type: None Delusion Type: None Suicidal Ideation: No Suicidal Plan: No Suicidal Intention: No Homicidal Ideation: No Homicidal Plan: No Homicidal Intention: No Insight: Poor Judgment: Poor Assessment and Plan - Assessment (1) Adjustment disorder with depressed mood Code(s): F43.21 - Adjustment disorder with depressed mood Status: Acute - Plan Plan: Estimated LOS: [5-7] days Patient is a 72-year-old man, who carries a diagnosis of unspecified psychosis, one previous psychiatric admission here at [facility] in October 2017, no previous suicide attempts of 100 behavior, with an extensive past medical history which patient has had 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 Petition for involuntary hospital she was started, second opinion requested. Patient's , Will Lowe [phone] will serve as health care surrogate and guardian advocate for this admission; she was contacted and consented to treatment as follows. Patient will resume with risperidone 3 mg p.o. daily, increase bupropion SR 150 mg p.o. twice daily, and temazepam 15 mg at bedtime. We will continue to monitor mood and behavior. We will request hospitalist consult for management of ongoing chronic medical illnesses as well as recent UTI. Discharge planning in progress. Justification for Continued Inpatient Stay: At risk for further decompensation if at lower level of care
--- NOTE | 2018-01-19 18:32 | P.CONIM ---
History of Present Illness Consult date: 01/19/18 Requesting Physician: Billy Andres Reason for Consult: UTi Primary Care Provider: UNKNOWN Chief Complaint: UTi History of Present Illness: This is a 19-year-old male with history stroke who presented to the emergency department Hu acted for suicidal ideations. He stated that he wants to take poison and certificate himself because he would like to take care of his financially by killing himself. He also mentions that he has a Solis catheter because he has abnormal urine. H Urinalysis was suspicious, urine culture grew E. coli ESBL but sensitive to nitrofurantoin. He is now admitted at the [facility] psych unit and we are consulted for medical comanagement. Patient is a poor historian, not very cooperative but he denies any fever, chills, dysuria or flank pain. Family history: Noncontributory, difficult to obtain Review of Systems All other pertinent systems were reviewed and are negative. PMFSH - History History Provided By: Patient, Medical Record - Medical History Medical History: Medical History (Last Reviewed 01/19/18 @ 18:08 by Maern Yanez MD) Hypertension Stroke - Surgical History Surgical History: Surgical History (Last Reviewed 01/19/18 @ 18:08 by Maren Yanez MD) Hx of CABG - Tobacco History Smoking Status: Unknown if ever smoked - Alcohol History How Often Do You Have a Drink Containing Alcohol: Unable to Obtain - Substance Use History Substance History: No History of Abuse - Travel History Recent Travel in the [place] Within the Last 8 Weeks: No Recent Travel Out of the Country Within the Last 8 Weeks: No - Immunization History Tetanus Immunization: <5 Years Hx Influenza Vaccine This Season: No Medications and Allergies Active Medications: Active Medications Al Hydrox/Mg Hydrox/Simethicone (Mag-Al Plus Susp Liq) 30 ml PO Q6H PRN PRN Reason: DYSPEPSIA Al Hydroxide/Mg Hydroxide (Milk Of Magnesia Liq) 30 ml PO Q12H PRN PRN Reason: Mild Constipation Amlodipine Besylate (Norvasc) 5 mg PO DAILY [facility] Last Admin: 01/19/18 08:35 Dose: 5 mg Aspirin (Aspirin) 325 mg PO DAILY [facility] Last Admin: 01/19/18 08:36 Dose: Not Given Bisacodyl (Dulcolax Supp) 10 mg RECTAL DAILY PRN PRN Reason: SEVERE CONSITIPATION Bupropion HCl (Wellbutrin Sr) 150 mg PO BID [facility] Lactulose (Lactulose Liq) 30 ml PO DAILY PRN PRN Reason: SEVERE CONSITIPATION Lisinopril (Prinivil) 5 mg PO DAILY [facility] Last Admin: 01/19/18 08:34 Dose: 5 mg Risperidone (Risperdal) 3 mg PO DAILY [facility] Last Admin: 01/19/18 08:34 Dose: 3 mg Senna/Docusate Sodium (Roya-Colace) 1 tab PO BID [facility] Last Admin: 01/19/18 08:34 Dose: 1 tab Sennosides (Senokot) 17.2 mg PO Q12H PRN PRN Reason: Moderate Constipation Temazepam (Restoril) 15 mg PO DAILY@2100 [facility] Last Admin: 01/18/18 20:47 Dose: 15 mg Allergies Allergy/AdvReac Type Severity Reaction Status Date / Time No Known Allergies Allergy Unverified 10/17/17 15:07 Home Medications Medication Instructions Recorded Confirmed Type amlodipine 5 mg PO DAILY 01/17/18 01/17/18 History aspirin 325 mg PO DAILY 01/17/18 01/17/18 History bupropion HCl [Wellbutrin SR] 150 mg PO DAILY 01/17/18 01/17/18 History lisinopril 5 mg PO DAILY 01/17/18 01/17/18 History risperidone 3 mg PO DAILY 01/17/18 01/17/18 History sertraline 25 mg PO DAILY 01/17/18 01/17/18 History temazepam 15 mg PO DAILY 01/17/18 01/17/18 History Exam Vital signs: Vital Signs 01/18/18 18:31 Temperature 97.7 F Pulse Rate 64 Respiratory Rate 16 Blood Pressure 166/105 H Pulse Oximetry 92 L Intake & Output 01/18/18 01/19/18 01/19/18 18:59 06:59 18:59 Output Total 600 / 600 Balance -600 / -600 Weight 65.317 kg Output: Urine Amount (Catheter) 600 / 600 Indwelling Urethral Catheter 600 / 600 Other: Weight On Admission 65.317 kg Narrative: Not in distress, not cooperative, refused some examination. Good pulses Normal breathing Normal bowel sounds, soft, non-tender, no CVA tenderness. Awake, walking,? Orientation. Results - Labs CBC & Chem 7: 01/17/18 18:05 01/17/18 18:05 Assessment and Plan - Plan This is a 72-year-old male with history of hypertension and CVA, admitted at the med psych unit for suicidal ideations Suicidal ideations - management per psychiatry Hypertension - restart Norvasc, aspirin, lisinopril. Monitor, clonidine as needed. CBC and BMP reviewed, unremarkable. UTI-urinalysis shows pyuria, proteinuria, leukocyte esterase but catheterized sample. UCx grew E. Coli, ESBL but sensitive to Macrobid, will start Macrobid for now. Replace Solis catheter and then recheck urinalysis. Has Solis catheter for chronic urinary retention DVT PPx:
[2018-01-19] MEDS: Temazepam 15 MG Capsule PO SCH (20:18)
[2018-01-19] MEDS: buPROPion 150 MG 12 HR Tablet PO SCH (20:19)
[2018-01-20] MEDS ORDERED: Nitrofurantoin Monohydrate-Macrocrystal 100 MG Capsule PO SCH (09:00)
[2018-01-20 09:09] LABS: Calcium 9.4 mg/dL (8.5-10.1); Carbon Dioxide 25.8 meq/L (21.0-32.0); Potassium 3.5 meq/L (3.5-5.1)
[2018-01-20 09:11] LABS: Chol/HDL Ratio 2.56 Ratio; HDL Cholesterol 69.1 mg/dL (40.0-60.0)
[2018-01-20] MEDS: buPROPion 150 MG 12 HR Tablet PO SCH ×2 (09:16→20:20)
[2018-01-20] MEDS: amLODIPine 5 MG Tablet PO SCH (09:16)
[2018-01-20] MEDS: Senna/Docusate Sodium 8.6/50 MG Tablet PO SCH ×2 (09:16→20:19)
[2018-01-20] MEDS: Aspirin 325 MG Tablet PO SCH (09:16)
[2018-01-20] MEDS: Lisinopril 5 MG Tablet PO SCH (09:16)
--- NOTE | 2018-01-20 09:41 | P.CONPSY ---
Provisional Diagnosis Admission Date: January 18, 2018 15:37 Woodrow I.: Adjustment disorder with depressed mood History of Present Illness Service: Psychiatry Consult date: 01/20/18 Requesting Physician: Billy Andres Reason for Consult: Second opinion petition supporting Fritz amato Primary Care Provider: UNKNOWN Chief Complaint: UTi History of Present Illness: Patient is 72-year-old white male comes for under Fritz amato admitted to Dr. Andres service. Dr. Andres initial H&P reviewed and agreed with. Dr. Andres assigned first opinion petition supporting Fritz act. Patient seen by me in his room with nurse Quinton. Patient remains quite depressed with vague suicidal ideation. It appears he is made to suicidal attempts/gestures recently. Showing little insight into his illness at the present time. Thus at this time I feel patient does meet Hu criteria. I will cosign second opinion petition supporting Fritz amato PMFSH - History History Provided By: Patient, Medical Record - Medical History Medical History: Medical History (Last Reviewed 01/19/18 @ 18:08 by Maren Yanez MD) Hypertension Stroke - Surgical History Surgical History: Surgical History (Last Reviewed 01/19/18 @ 18:08 by Maren Yanez MD) Hx of CABG - Tobacco History Smoking Status: Unknown if ever smoked - Alcohol History How Often Do You Have a Drink Containing Alcohol: Unable to Obtain - Substance Use History Substance History: No History of Abuse - Travel History Recent Travel in the [place] Within the Last 8 Weeks: No Recent Travel Out of the Country Within the Last 8 Weeks: No - Immunization History Tetanus Immunization: <5 Years Hx Influenza Vaccine This Season: No Medications and Allergies Active Medications: Active Medications Al Hydrox/Mg Hydrox/Simethicone (Mag-Al Plus Susp Liq) 30 ml PO Q6H PRN PRN Reason: DYSPEPSIA Al Hydroxide/Mg Hydroxide (Milk Of Magnesia Liq) 30 ml PO Q12H PRN PRN Reason: Mild Constipation Amlodipine Besylate (Norvasc) 5 mg PO DAILY [facility] Last Admin: 01/20/18 09:16 Dose: 5 mg Aspirin (Aspirin) 325 mg PO DAILY [facility] Last Admin: 01/20/18 09:16 Dose: 325 mg Bisacodyl (Dulcolax Supp) 10 mg RECTAL DAILY PRN PRN Reason: SEVERE CONSITIPATION Bupropion HCl (Wellbutrin Sr) 150 mg PO BID [facility] Last Admin: 01/20/18 09:16 Dose: 150 mg Clonidine HCl (Catapres) 0.1 mg PO Q8HR PRN PRN Reason: SBP>160, DBP>90 Sodium Chloride (Ns Inj) 1,000 mls @ 100 mls/hr IV.CONT .Q10H [facility] Lactulose (Lactulose Liq) 30 ml PO DAILY PRN PRN Reason: SEVERE CONSITIPATION Lisinopril (Prinivil) 5 mg PO DAILY [facility] Last Admin: 01/20/18 09:16 Dose: 5 mg Nitrofurantoin Macrocrystals (Macrobid) 100 mg PO BIDPC [facility] Last Admin: 01/20/18 09:16 Dose: 100 mg Risperidone (Risperdal) 3 mg PO DAILY [facility] Last Admin: 01/20/18 09:16 Dose: 3 mg Senna/Docusate Sodium (Roya-Colace) 1 tab PO BID [facility] Last Admin: 01/20/18 09:16 Dose: 1 tab Sennosides (Senokot) 17.2 mg PO Q12H PRN PRN Reason: Moderate Constipation Temazepam (Restoril) 15 mg PO DAILY@2100 [facility] Last Admin: 01/19/18 20:18 Dose: 15 mg Allergies Allergy/AdvReac Type Severity Reaction Status Date / Time No Known Allergies Allergy Unverified 10/17/17 15:07 Home Medications Medication Instructions Recorded Confirmed Type amlodipine 5 mg PO DAILY 01/17/18 01/17/18 History aspirin 325 mg PO DAILY 01/17/18 01/17/18 History bupropion HCl [Wellbutrin SR] 150 mg PO DAILY 01/17/18 01/17/18 History lisinopril 5 mg PO DAILY 01/17/18 01/17/18 History risperidone 3 mg PO DAILY 01/17/18 01/17/18 History sertraline 25 mg PO DAILY 01/17/18 01/17/18 History temazepam 15 mg PO DAILY 01/17/18 01/17/18 History Exam Vital signs: Vital Signs 01/20/18 05:54 Temperature 97.5 F L Pulse Rate 77 Respiratory Rate 15 Blood Pressure 97/53 L Pulse Oximetry 95 Mental Status Examination Appearance: Appropriate ([facility]) Consciousness: Alert Orientation: Person, Place Motor Activity: Normal gait Speech: Unremarkable Language: Adequate (Noted with Eastern accent) Fund of Knowledge: Inadequate Attention and Concentration: Inadequate Memory: Impaired Mood: Other ("Okay") Affect: Blunt Thought Process & Associations: Disorganized (At times), Other ([place]) Thought Content: Appropriate Hallucination Type: None Delusion Type: None Suicidal Ideation: No Suicidal Plan: No Suicidal Intention: No Homicidal Ideation: No Homicidal Plan: No Homicidal Intention: No Insight: Poor Judgment: Poor Assessment and Plan - Assessment (1) Adjustment disorder with depressed mood Code(s): F43.21 - Adjustment disorder with depressed mood Status: Acute - Plan Plan: I agree with Dr. Andres thus I will cosign second opinion petition supporting Hu act Justification for Continued Inpatient Stay: At this time patient would decompensate if placed in a lower level of care
[2018-01-20 11:09] LABS: Bacteria,Urine Many /hpf; Bilirubin,Urine Negative (Negative); Clarity,Urine Hazy (Clear); Color,Urine Yellow (Yellw/Straw); Glucose,Urine (UA) Negative (Negative); Leukocyte Esterase,Urine Moderate (Negative); Nitrite,Urine Negative (Negative); Specific Gravity,Urine 1.016 (1.002-1.035)
[2018-01-20] MEDS: Sod Chloride 0.9% Inj 1,000 ML IV.CONT SCH ×2 (11:45→21:11)
--- NOTE | 2018-01-20 14:28 | P.PNIM ---
Subjective Interval history: more cooperative today, denies Flank pain or suprapubic pain,afebrile. Poor historian Physical Exam Vital signs: Vital Signs 01/20/18 05:54 Temperature 97.5 F L Pulse Rate 77 Respiratory Rate 15 Blood Pressure 97/53 L Pulse Oximetry 95 Narrative: Not in distress, not cooperative Good pulses Regular rate and rhythm, no murmurs Normal breathing Normal bowel sounds, soft, non-tender, no CVA tenderness, no suprapubic tenderness Awake, alert, ? Orientation, neuro exam limited Flat affect - Urinary Catheter Management Indwelling Urethral Catheter Cath placed during this visit: yes Reason for continuing: Acute urinary retention Insertion date: 01/20/18 Insertion time: 09:00 Results - Labs CBC & Chem 7: 01/17/18 18:05 01/20/18 08:02 Laboratory Results - last 24 hr 01/20/18 01/20/18 08:02 08:40 Sodium 141 Potassium 3.5 Chloride 105 Carbon Dioxide 25.8 Anion Gap 10 BUN 20 H Creatinine 1.66 H Estimated GFR 41 L Random Glucose 136 H Calcium 9.4 Triglycerides 86 Cholesterol 177 LDL Cholesterol, Calc 91 HDL Cholesterol 69.1 H Cholesterol/HDL Ratio 2.56 Urine Color Yellow Urine Clarity Hazy H Urine pH 5.0 Ur Specific [place] 1.016 Urine Protein Negative Urine Glucose (UA) Negative Urine Ketones Negative Urine Occult Blood Small H Urine Nitrate Negative Urine Bilirubin Negative Urine Urobilinogen 2.0 H Ur Leukocyte Esterase Moderate H Urine RBC 2 Urine WBC 88 H Urine Bacteria Many H Micro UA Comment Cath-culture ind Urine Culture Comments Cath-cult indicated Assessment and Plan - Plan This is a 72-year-old male with history of hypertension and CVA, admitted at the med psych unit for suicidal ideations Suicidal ideations - management per psychiatry Hypertension - cont Norvasc, aspirin, lisinopril. Monitor, clonidine as needed. CBC and BMP reviewed, unremarkable. UTI-urinalysis shows pyuria, proteinuria, leukocyte esterase but catheterized sample. UCx grew E. Coli, ESBL , not improving, repeat UA still looks infected , switch macrobid to zosyn for a few days. Solis replaced 01/20. Acute renal failure - could be from obstruction, FC was not draining properly before, now draining ok, I/Os, recheck BMP, start IVF
[2018-01-20] MEDS: Piperacil/Tazo 3.375 GM Premix 50 ML IV.SIG SCH ×2 (15:19→21:12)
[2018-01-20 16:38] LABS: Hemoglobin A1c 6.1 % (4.3-6.0)
--- NOTE | 2018-01-20 18:09 | P.PNPSY ---
Subjective Remarks: Patient seen for follow-up, chart reviewed. Discussion with nursing staff reported that the patient patient continues to be noted to be confused but compliant with medications. Patient was found ambulating on the unit stating that his sleep has been "very bad", continues to be noted to be confused alert and oriented only to person and place. Patient stated his mood has been "okay" denies feeling depressed and denies any suicide ideations. Patient recalls having been visited by his less evening which she states went "very well". Patient denies any physical complaints at this time, with adequate appetite and no difficulty with bowel movement. Review of Systems All other systems reviewed negative except as stated in HPI Mental Status Examination Appearance: Appropriate Consciousness: Alert Orientation: Person, Place Motor Activity: Normal gait Speech: Unremarkable Language: Adequate (Noted with Eastern accent) Fund of Knowledge: Inadequate Attention and Concentration: Inadequate Memory: Impaired Mood: Other ("Okay") Affect: Blunt Thought Process & Associations: Disorganized (At times), Other ([place]) Thought Content: Appropriate Hallucination Type: None Delusion Type: None Suicidal Ideation: No Suicidal Plan: No Suicidal Intention: No Homicidal Ideation: No Homicidal Plan: No Homicidal Intention: No Insight: Poor Judgment: Impulsive Assessment and Plan - Assessment (1) Adjustment disorder with depressed mood Code(s): F43.21 - Adjustment disorder with depressed mood Status: Acute - Plan Plan: Patient this time continues to deny feeling depressed or endorsing any suicide ideations. Patient currently managed by primary medical team for UTI patient will continue contact precautions. We will continue to monitor mood and behavior. Continue current treatment. Discharge planning in progress. Justification for Continued Inpatient Stay: At risk for further decompensation if at lower level of care.
[2018-01-20] MEDS: Temazepam 15 MG Capsule PO SCH (20:19)
[2018-01-21] MEDS: Piperacil/Tazo 3.375 GM Premix 50 ML IV.SIG SCH ×4 (03:05→20:29)
[2018-01-21 08:35] LABS: Calcium 8.7 mg/dL (8.5-10.1); Carbon Dioxide 27.2 meq/L (21.0-32.0); Potassium 3.5 meq/L (3.5-5.1)
[2018-01-21] MEDS: amLODIPine 5 MG Tablet PO SCH (08:38)
[2018-01-21] MEDS: Aspirin 325 MG Tablet PO SCH (08:38)
[2018-01-21] MEDS: Lisinopril 5 MG Tablet PO SCH (08:38)
[2018-01-21] MEDS: Senna/Docusate Sodium 8.6/50 MG Tablet PO SCH ×2 (08:39→20:30)
[2018-01-21] MEDS: buPROPion 150 MG 12 HR Tablet PO SCH ×2 (08:53→20:30)
--- NOTE | 2018-01-21 12:04 | P.PN ---
Subjective Interval history: Patient is seen in room. He is eating records. He does not answer my questions , only smiles and acknowledges me. Nursing reports no adverse events. Physical Exam Vital signs: Vital Signs 01/21/18 05:43 01/21/18 06:00 Temperature 97.5 F L 97.5 F L Pulse Rate 83 83 Respiratory Rate 18 18 Blood Pressure 147/101 H 147/101 H Pulse Oximetry 97 97 Intake & Output 01/20/18 01/21/18 01/21/18 18:59 06:59 18:59 Intake Total 50 / 50 1050 / 1050 360 / 360 Output Total 700 / 700 Balance -650 / -650 1050 / 1050 360 / 360 Intake: IV 50 / 50 1050 / 1050 NS Inj 1,000 ML @ 100 mls/hr IV 1000 / 1000 .CONT .Q10H [facility] Rx#:[id number] Zosyn 3.375 GM Premix 50 ML @ 50 / 50 50 / 50 100 mls/hr IV.SIG Q6H [facility] Rx#: [id number] Oral 0 / 0 360 / 360 Output: Urine Amount (Catheter) 700 / 700 Indwelling Urethral Catheter 700 / 700 Other: # Voids 3 Narrative: GENERAL: Well-nourished, well-developed adult male in no obvious distress. SKIN: Warm and dry. HEAD: Atraumatic. Normocephalic. CARDIOVASCULAR: Regular rate and rhythm. RESPIRATORY: No accessory muscle use. Clear to auscultation. Breath sounds equal bilaterally. GASTROINTESTINAL: Abdomen soft, non-tender, non-distended. Positive bowel sounds. MUSCULOSKELETAL: Extremities without clubbing, cyanosis, or edema. No obvious deformities. NEUROLOGICAL: Awake and alert. No obvious cranial nerve deficits. Motor grossly within normal limits. Limited speech. PSYCHIATRIC: Orientation questionable. - Urinary Catheter Management Indwelling Urethral Catheter Cath placed during this visit: yes Reason for continuing: Acute urinary retention Insertion date: 01/20/18 Insertion time: 09:00 Results - Labs CBC & Chem 7: 01/17/18 18:05 01/21/18 06:10 Laboratory Results - last 24 hr 01/20/18 01/21/18 08:02 06:10 Sodium 142 Potassium 3.5 Chloride 107 Carbon Dioxide 27.2 Anion Gap 8 BUN 19 H Creatinine 1.32 H Estimated GFR 54 L Random Glucose 92 Hemoglobin A1c 6.1 H Calcium 8.7 Assessment and Plan - Plan This is a 72-year-old male with history of hypertension and CVA, admitted at the med psych unit for suicidal ideations Suicidal ideations - management per psychiatry Hypertension - cont Norvasc, aspirin, lisinopril. Monitor, clonidine as needed. UTI-urinalysis shows pyuria, proteinuria, leukocyte esterase but catheterized sample. UCx grew E. Coli, ESBL , not improving, repeat UA still looks infected , switch macrobid to zosyn for a few days. Solis replaced 01/20. Repeat UA pending on 01/21 Acute renal failure - could be from obstruction, FC was not draining properly before, now draining ok, I/Os, recheck BMP, start IVF. Creatinine improved on . Continue fluid. DVT prophylaxis: Patient is ambulatory Discussed with: Patient and nurse
--- NOTE | 2018-01-21 19:05 | P.PNPSY ---
Subjective Remarks: Patient seen for follow-up, chart reviewed. Discussion with nursing staff reported that the patient compliant with treatment, removed IV line less evening had difficulty with sleep and continues to be disoriented but denying any suicide ideations. Patient was found in room noted B, cooperative. Patient states that he had difficulty sleeping last evening due to the IV machine along with having difficulty disconnecting himself to be able to use the restroom last night. Patient states he had visited by his less evening which went well. Patient reports his mood as being "average", denies feeling depressed, denies any suicide ideations. Review of Systems All other systems reviewed negative except as stated in HPI Mental Status Examination Appearance: Appropriate ([facility]) Consciousness: Alert Orientation: Person, Place Motor Activity: Normal gait Speech: Unremarkable Language: Adequate (Noted with Eastern accent) Fund of Knowledge: Inadequate Attention and Concentration: Inadequate Memory: Impaired Mood: Other ("Okay") Affect: Blunt Thought Process & Associations: Disorganized (At times), Other ([place]) Thought Content: Appropriate Hallucination Type: None Delusion Type: None Suicidal Ideation: No Suicidal Plan: No Suicidal Intention: No Homicidal Ideation: No Homicidal Plan: No Homicidal Intention: No Insight: Poor Judgment: Poor Assessment and Plan - Assessment (1) Adjustment disorder with depressed mood Code(s): F43.21 - Adjustment disorder with depressed mood Status: Acute - Plan Plan: Patient continues with baseline confusion, reporting having had difficulty with sleep due to being connected to the IV machine last night. Patient continues denying any depressive symptoms and continues denying suicide ideations. Patient will continue IV antibiotic treatment as per prior medical team for UTI. Continue to monitor mood and behavior. Discharge planning in progress. Justification for Continued Inpatient Stay: At risk for further decompensation if at lower level of care.
[2018-01-21] MEDS: Temazepam 15 MG Capsule PO SCH (20:30)
[2018-01-22] MEDS: Piperacil/Tazo 3.375 GM Premix 50 ML IV.SIG SCH ×3 (04:44→16:32)
[2018-01-22] MEDS: Aspirin 325 MG Tablet PO SCH (08:37)
[2018-01-22] MEDS: buPROPion 150 MG 12 HR Tablet PO SCH ×2 (08:37→20:51)
[2018-01-22] MEDS: amLODIPine 5 MG Tablet PO SCH (08:37)
[2018-01-22] MEDS: Senna/Docusate Sodium 8.6/50 MG Tablet PO SCH ×2 (08:39→20:50)
[2018-01-22] MEDS: Sod Chloride 0.9% Inj 1,000 ML IV.CONT SCH ×4 (13:08→20:56)
--- NOTE | 2018-01-22 13:14 | P.PNPSY ---
Subjective Remarks: Reviewed electronic medical records and discussed case with staff. Follow-up was conducted in patient's room. He was found lying on the bed awake. His nurse reports that he has been cooperative this morning but, he was "up and down all night". At approximately 4 hours of sleep. He notices tray is sitting untouched and he reports that it is "too much food". He states that he ate his breakfast however nurse reported he did not need his breakfast due to being sleepy. Have to keep an eye on his oral intake. Mental Status Examination Appearance: Appropriate ([facility]) Consciousness: Alert Orientation: Person, Place Motor Activity: Normal gait Speech: Unremarkable Language: Adequate (Noted with Eastern accent) Fund of Knowledge: Inadequate Attention and Concentration: Inadequate Memory: Impaired Mood: Other ("Okay") Affect: Blunt Thought Process & Associations: Disorganized (At times), Other ([place]) Thought Content: Appropriate Hallucination Type: None Delusion Type: None Suicidal Ideation: No Suicidal Plan: No Suicidal Intention: No Homicidal Ideation: No Homicidal Plan: No Homicidal Intention: No Insight: Poor Judgment: Poor Assessment and Plan - Assessment (1) Adjustment disorder with depressed mood Code(s): F43.21 - Adjustment disorder with depressed mood Status: Acute - Plan Plan: Patient will be reevaluated Wednesday by the attending psychiatrist. Continue with current treatment plan. Justification for Continued Inpatient Stay: Moving this patient to a less restrictive environment would likely result in decompensation.
--- NOTE | 2018-01-22 16:22 | P.PN ---
Subjective Interval history: Patient is seen lying in bed. Is drowsy and does not answer any questions. Nursing reports no concerns. Physical Exam Vital signs: Vital Signs 01/21/18 18:04 01/22/18 05:43 Temperature 97.4 F L 98.1 F Pulse Rate 59 L 65 Respiratory Rate 20 18 Blood Pressure 149/89 H Pulse Oximetry 95 Intake & Output 01/21/18 01/22/18 01/22/18 18:59 06:59 18:59 Intake Total 1890 / 1890 700 / 700 1120 / 1120 Output Total 602 / 602 Balance 1890 / 1890 98 / 98 1120 / 1120 Intake: IV 1050 / 1050 100 / 100 1000 / 1000 NS Inj 1,000 ML @ 100 mls/hr IV 1000 / 1000 1000 / 1000 .CONT .Q10H [facility] Rx#:[id number] Zosyn 3.375 GM Premix 50 ML @ 50 / 50 100 / 100 100 mls/hr IV.SIG Q6H [facility] Rx#: [id number] Oral 840 / 840 600 / 600 120 / 120 Output: Urine 602 / 602 Narrative: GENERAL: Well-nourished, well-developed adult male in no obvious distress. SKIN: Warm and dry. HEAD: Atraumatic. Normocephalic. CARDIOVASCULAR: Regular rate and rhythm. RESPIRATORY: No accessory muscle use. Clear to auscultation. Breath sounds equal bilaterally. GASTROINTESTINAL: Abdomen soft, non-tender, non-distended. Positive bowel sounds. MUSCULOSKELETAL: Extremities without clubbing, cyanosis, or edema. No obvious deformities. NEUROLOGICAL: Awake and alert. No obvious cranial nerve deficits. Motor grossly within normal limits. Limited speech. PSYCHIATRIC: Orientation questionable. - Urinary Catheter Management Indwelling Urethral Catheter Cath placed during this visit: yes Reason for continuing: Acute urinary retention Insertion date: 01/20/18 Insertion time: 09:00 Results - Labs CBC & Chem 7: 01/17/18 18:05 01/21/18 06:10 Microbiology 01/20/18 08:40 Catheterized Urine Urine Culture - Final Escherichia coli ESBL positive Assessment and Plan - Plan This is a 72-year-old male with history of hypertension and CVA, admitted at the med psych unit for suicidal ideations Suicidal ideations - management per psychiatry Hypertension -cont Norvasc, aspirin, lisinopril. Monitor, clonidine as needed. UTI -urinalysis shows pyuria, proteinuria, leukocyte esterase but catheterized sample. UCx grew E. Coli, ESBL , not improving, repeat UA still looks infected , switch macrobid to zosyn for a few days. Solis replaced 01/20. -01/22 Repeat UA identifies E. coli and ESBL. Consult ID; appreciate assistance. Acute renal failure -could be from obstruction, FC was not draining properly before, now draining ok , I/Os, recheck BMP, start IVF. Creatinine improved on 01/21. Continue fluid. DVT prophylaxis: Patient is ambulatory Discussed with: Patient and nurse & Dr. Collazo
[2018-01-22] MEDS: Temazepam 15 MG Capsule PO SCH (20:51)
[2018-01-23] MEDS: buPROPion 150 MG 12 HR Tablet PO SCH ×2 (10:27→20:38)
[2018-01-23] MEDS: Senna/Docusate Sodium 8.6/50 MG Tablet PO SCH ×2 (10:28→20:38)
[2018-01-23] MEDS: Aspirin 325 MG Tablet PO SCH (10:28)
[2018-01-23] MEDS: Sod Chloride 0.9% Inj 1,000 ML IV.CONT SCH ×2 (10:31→21:14)
[2018-01-23 11:47] LABS: Baso % (Auto) 0.9 % (0.0-2.0); Eos # (Auto) 0.1 th/mm3 (0.0-0.4); Hematocrit 39.8 % (39.0-51.0); Hemoglobin 13.6 gm/dL (13.0-17.0); Lymph # (Auto) 1.3 th/mm3 (1.0-4.8); Lymph % (Auto) 24.2 % (9.0-44.0); Mean Corpuscular HGB Conc 34.3 % (32.0-36.0); Mean Corpuscular Hemoglobin 32.7 pg (27.0-34.0); Mean Corpuscular Volume 95.4 fL (80.0-100.0); Mean Platelet Volume 10.1 fL (7.0-11.0); Mono # (Auto) 0.5 th/mm3 (0.0-0.9); Mono % (Auto) 8.7 % (0.0-8.0); Neut # (Auto) 3.5 th/mm3 (1.8-7.7); Neut % (Auto) 65.2 % (16.0-70.0); Platelet Count 117 th/mm3 (150-450); Red Blood Count 4.17 mil/mm3 (4.50-5.90); Red Cell Distribution Width 14.1 % (11.6-17.2); White Blood Count 5.3 th/mm3 (4.0-11.0)
[2018-01-23 12:11] LABS: Calcium 8.6 mg/dL (8.5-10.1); Carbon Dioxide 26.4 meq/L (21.0-32.0); Potassium 3.6 meq/L (3.5-5.1)
[2018-01-23] MEDS: amLODIPine 5 MG Tablet PO SCH (14:03)
--- NOTE | 2018-01-23 14:22 | MB ---
cc: Sachin Lucia MD DATE: 01/23/2018 REQUESTING: ALINA Keenan REASON FOR CONSULTATION: ESBL UTI. HISTORY OF PRESENT ILLNESS: This is a 72-year-old white male who was Hu Acted and is receiving care in the Inpatient Psychiatric Unit. The patient was admitted to the hospital on 01/17/2018. He apparently had suicidal ideations. The patient has chronic urinary retention and has an indwelling Solis catheter because of that. Urinalysis was taken on 01/17/2018, came back showing innumerable white blood cell clumps and culture was sent and came back with extended-spectrum beta-lactamase Escherichia coli. The Solis catheter was changed and the second urine was repeated on 01/20/2018 and it came back, also showing E. coli ESBL positive. He was on piperacillin/tazobactam starting on 01/20/2018. The patient is currently lying in bed. He has a very flat affect. It is difficult to get him to open up and talk to me. He indicates that he has no problems and no discomfort. Because of his poor interaction, information is obtained from the medical record. PAST MEDICAL HISTORY: Hypertension, CVA, history of coronary artery bypass graft surgery. ALLERGIES: NO KNOWN DRUG ALLERGIES. MEDICATIONS: 1. Ertapenem. 2. Prinivil. 3. Risperdal. 4. Wellbutrin. 5. Aspirin. 6. Norvasc. SOCIAL HISTORY: Unable to obtain. REVIEW OF SYSTEMS: Difficult to obtain because the patient is not interacting adequately. PHYSICAL EXAMINATION: GENERAL: This is a slender well-developed male who does not appear to be in any acute distress. He is awake and alert. He is a poorly interactive and mostly just stares at me while I evaluate and examine him. VITAL SIGNS: Temperature 98.9, BP 170/71, respirations 20, heart rate 60. HEENT: Head is atraumatic. Extraocular movements grossly intact. Pupils reactive to light. No icterus. Oropharynx mucosa appears moist. NECK: No swelling or adenopathy. LUNGS: Clear breath sounds. HEART: Regular S1, S2, without audible murmurs, rubs or gallops. ABDOMEN: Bowel sounds present. Soft. GENITOURINARY: The patient has a Solis catheter in place, which has slight turbid yellow urine. RECTAL: Not performed. EXTREMITIES: No clubbing, cyanosis or edema. SKIN: No rash. LABORATORY DATA: WBC 5.3, platelets 117, hemoglobin 13.6, 65% neutrophils, 24% lymphocytes, 8% monocytes, creatinine 0.95, estimated GFR of 78. IMPRESSION: Urinary tract infection due to extended-spectrum beta-lactamase Escherichia coli in patient with chronic indwelling Solis catheter due to chronic urinary retention. RECOMMENDATIONS: 1. Continue ertapenem, which I started after reviewing the patient's medical record earlier. 2. Repeat the urine culture in a couple days, on Wednesday morning to check for clearance of the UTI and if it is cleared the ertapenem can be stopped. 3. Monitor clinical status. He does not appear to be septic. Thank you for this consultation. I will monitor cultures and will make further recommendations on followup if necessary. Sachin Lucia MD FFKris/TL , 01:38 PM , 01:49 PM
--- NOTE | 2018-01-23 15:42 | P.PN ---
Subjective Interval history: Patient is seen lying in bed. He does not answer any of my questions; just stares at me. Nursing reports no adverse events; they do note that he has not eaten either breakfast or lunch. Physical Exam Vital signs: Vital Signs 01/22/18 18:21 01/23/18 05:00 Temperature 98.3 F 98.9 F Pulse Rate 72 60 Respiratory Rate 17 20 Blood Pressure 147/78 H 170/71 H Pulse Oximetry 96 94 L Intake & Output 01/22/18 01/23/18 01/23/18 18:59 06:59 18:59 Intake Total 3130 / 3130 4817 / 4817 1000 / 1000 Output Total 400 / 400 1200 / 1200 Balance 2730 / 2730 3617 / 3617 1000 / 1000 Intake: IV 2049 / 2049 1000 / 1000 NS Inj 1,000 ML @ 100 mls/hr IV 2000 / 2000 1000 / 1000 .CONT .Q10H [facility] Rx#:[id number] Zosyn 3.375 GM Premix 50 ML @ 50 / 50 100 mls/hr IV.SIG Q6H [facility] Rx#: [id number] Oral 1080 / 1080 120 / 120 0 / 0 Other 4697 / 4697 Output: Urine 1200 / 1200 Urine Amount (Catheter) 400 / 400 Indwelling Urethral Catheter 400 / 400 Other: Other Intake Source Saline Solution Narrative: GENERAL: Well-nourished, well-developed adult male in no obvious distress. SKIN: Warm and dry. HEAD: Atraumatic. Normocephalic. CARDIOVASCULAR: Regular rate and rhythm. RESPIRATORY: No accessory muscle use. Clear to auscultation. Breath sounds equal bilaterally. GASTROINTESTINAL: Abdomen soft, non-tender, non-distended. Positive bowel sounds. MUSCULOSKELETAL: Extremities without clubbing, cyanosis, or edema. No obvious deformities. NEUROLOGICAL: Awake and alert. No obvious cranial nerve deficits. Motor grossly within normal limits. PSYCHIATRIC: Orientation questionable. - Urinary Catheter Management Indwelling Urethral Catheter Cath placed during this visit: yes Reason for continuing: Acute urinary retention Insertion date: 01/20/18 Insertion time: 09:00 Results - Labs CBC & Chem 7: 01/23/18 11:20 01/23/18 11:20 Laboratory Results - last 24 hr 01/23/18 01/23/18 11:20 11:20 WBC 5.3 RBC 4.17 L Hgb 13.6 Hct 39.8 MCV 95.4 MCH 32.7 MCHC 34.3 RDW 14.1 Plt Count 117 L D MPV 10.1 Neut % (Auto) 65.2 Lymph % (Auto) 24.2 [place] % (Auto) 8.7 H Eos % (Auto) 1.0 Baso % (Auto) 0.9 Neut # (Auto) 3.5 Lymph # (Auto) 1.3 [place] # (Auto) 0.5 Eos # (Auto) 0.1 Baso # (Auto) 0.0 WBC Differential . Differential Comment Auto diff final Hematology Comments Sodium 142 Potassium 3.6 Chloride 108 H Carbon Dioxide 26.4 Anion Gap 8 BUN 8 Creatinine 0.95 Estimated GFR 78 L Random Glucose 100 Calcium 8.6 Assessment and Plan - Plan This is a 72-year-old male with history of hypertension and CVA, admitted at the med psych unit for suicidal ideations Suicidal ideations - management per psychiatry Hypertension -cont Norvasc, aspirin, lisinopril. Monitor, clonidine as needed. UTI -urinalysis shows pyuria, proteinuria, leukocyte esterase but catheterized sample. UCx grew E. Coli, ESBL , not improving, repeat UA still looks infected , switch macrobid to zosyn for a few days. Solis replaced 01/20. -01/22 Repeat UA identifies E. coli and ESBL. Consult ID; appreciate assistance. - -01/23 ertapenem started by ID Acute renal failure -could be from obstruction, FC was not draining properly before, now draining ok , I/Os, recheck BMP, start IVF. Creatinine improved on 01/21. Continue fluid. Monitor labs. DVT prophylaxis: Patient is ambulatory Discussed with: Patient and nurse
--- NOTE | 2018-01-23 19:35 | P.PNPSY ---
Subjective Remarks: Reviewed electronic medical records and discussed case with staff. Follow-up was conducted in patient's room. Nurse reports that he has had poor appetite. He had a consults with infectious disease and they have change his antibiotic. He now has good output and seems to be doing "much better". Patient found awake and alert in bed. He reports that he typically only eats one meal a day and that he has been sleeping well. His mood is good his affect is flat. Mental Status Examination Appearance: Appropriate ([facility]) Consciousness: Alert Orientation: Person, Place Motor Activity: Normal gait Speech: Unremarkable Language: Adequate (Noted with Eastern accent) Fund of Knowledge: Inadequate Attention and Concentration: Inadequate Memory: Impaired Mood: Other ("Okay") Affect: Blunt Thought Process & Associations: Disorganized (At times), Other ([place]) Thought Content: Appropriate Hallucination Type: None Delusion Type: None Suicidal Ideation: No Suicidal Plan: No Suicidal Intention: No Homicidal Ideation: No Homicidal Plan: No Homicidal Intention: No Insight: Poor Judgment: Poor Assessment and Plan - Assessment (1) Adjustment disorder with depressed mood Code(s): F43.21 - Adjustment disorder with depressed mood Status: Acute - Plan Plan: Patient will be reevaluated tomorrow by the attending psychiatrist. Continue with current treatment plan. Justification for Continued Inpatient Stay: Moving this patient to a less restrictive environment would likely result in decompensation.
[2018-01-23] MEDS: Temazepam 15 MG Capsule PO SCH (20:38)
[2018-01-24] MEDS: Lisinopril 10 MG Tablet PO SCH (06:03)
[2018-01-24] MEDS: Sod Chloride 0.9% Inj 1,000 ML IV.CONT SCH ×2 (10:04→21:18)
[2018-01-24] MEDS: Aspirin 325 MG Tablet PO SCH (10:05)
[2018-01-24] MEDS: buPROPion 150 MG 12 HR Tablet PO SCH ×2 (10:05→21:19)
[2018-01-24] MEDS: Senna/Docusate Sodium 8.6/50 MG Tablet PO SCH ×2 (10:05→21:19)
[2018-01-24] MEDS: amLODIPine 5 MG Tablet PO SCH ×2 (10:05→10:06)
--- NOTE | 2018-01-24 14:28 | P.PN ---
Subjective Interval history: Patient is seen lying quietly in bed. He is awake and makes eye contact but does not answer any questions. Nursing reports no adverse events overnight. Physical Exam Vital signs: Vital Signs 01/23/18 18:00 01/24/18 06:00 Temperature 98.3 F 98.1 F Pulse Rate 60 78 Respiratory Rate 16 18 Blood Pressure 157/88 H 98/66 L Pulse Oximetry 95 94 L Intake & Output 01/23/18 01/24/18 01/24/18 18:59 06:59 18:59 Intake Total 1000 / 1000 1000 / 1000 2440 / 2440 Output Total 300 / 300 800 / 800 Balance 700 / 700 200 / 200 2440 / 2440 Weight 60 kg Intake: IV 1000 / 1000 1000 / 1000 1000 / 1000 NS Inj 1,000 ML @ 100 mls/hr IV 1000 / 1000 1000 / 1000 1000 / 1000 .CONT .Q10H [facility] Rx#:[id number] Oral 0 / 0 0 / 0 1440 / 1440 Output: Urine 300 / 300 800 / 800 Narrative: GENERAL: Well-nourished, well-developed adult male in no obvious distress. SKIN: Warm and dry. HEAD: Atraumatic. Normocephalic. CARDIOVASCULAR: Regular rate and rhythm. RESPIRATORY: No accessory muscle use. Clear to auscultation. Breath sounds equal bilaterally. GASTROINTESTINAL: Abdomen soft, non-tender, non-distended. Positive bowel sounds. MUSCULOSKELETAL: Extremities without clubbing, cyanosis, or edema. No obvious deformities. NEUROLOGICAL: Awake and alert. No obvious cranial nerve deficits. Motor grossly within normal limits. PSYCHIATRIC: Orientation questionable. - Urinary Catheter Management Indwelling Urethral Catheter Cath placed during this visit: yes Reason for continuing: Acute urinary retention Insertion date: 01/20/18 Insertion time: 09:00 Results - Labs CBC & Chem 7: 01/23/18 11:20 01/23/18 11:20 Assessment and Plan - Plan This is a 72-year-old male with history of hypertension and CVA, admitted at the med psych unit for suicidal ideations Suicidal ideations - management per psychiatry Hypertension -cont Norvasc, aspirin, lisinopril. Monitor, clonidine as needed. -Unusually hypotensive early a.m. /6. Ordered recheck of vitals. Afebrile. Will repeat CBC. UTI -urinalysis shows pyuria, proteinuria, leukocyte esterase but catheterized sample. UCx grew E. Coli, ESBL , not improving, repeat UA still looks infected , switch macrobid to zosyn for a few days. Solis replaced 01/20. -01/22 Repeat UA identifies E. coli and ESBL. Consult ID; appreciate assistance. - -01/23 ertapenem started by ID Acute renal failure -could be from obstruction, FC was not draining properly before, now draining ok , I/Os, recheck BMP, start IVF. Creatinine improved on 01/21. Continue fluid. Monitor labs. DVT prophylaxis: Patient is ambulatory Discussed with: Patient and nurse
[2018-01-24 16:34] LABS: Baso # (Auto) 0.1 th/mm3 (0.0-0.2); Baso % (Auto) 0.7 % (0.0-2.0); Eos # (Auto) 0.1 th/mm3 (0.0-0.4); Eos % (Auto) 1.5 % (0.0-4.0); Hematocrit 40.2 % (39.0-51.0); Hemoglobin 13.3 gm/dL (13.0-17.0); Lymph # (Auto) 1.6 th/mm3 (1.0-4.8); Lymph % (Auto) 22.4 % (9.0-44.0); Mean Corpuscular HGB Conc 33.2 % (32.0-36.0); Mean Corpuscular Hemoglobin 31.6 pg (27.0-34.0); Mean Corpuscular Volume 95.2 fL (80.0-100.0); Mean Platelet Volume 10.6 fL (7.0-11.0); Mono # (Auto) 0.7 th/mm3 (0.0-0.9); Neut # (Auto) 4.6 th/mm3 (1.8-7.7); Neut % (Auto) 65.4 % (16.0-70.0); Platelet Count 211 th/mm3 (150-450); Red Blood Count 4.22 mil/mm3 (4.50-5.90); Red Cell Distribution Width 13.8 % (11.6-17.2); White Blood Count 7.1 th/mm3 (4.0-11.0)
--- NOTE | 2018-01-24 16:39 | P.PNPSY ---
Subjective Remarks: Patient seen for follow, chart reviewed. Discussion nursing staff reported the patient denying any suicide ideation continues to have some confusion at times, compliant with medications. Patient was found sitting in hospital bed noted B, cooperative. Patient stated his mood has been "fine" stating that his weekend went "so-so" stating that there is not much to do on the unit. Patient states that he wants to be only to discharge back home. Patient denies any depressed mood denies any suicide ideations today stating that "that was done with, in the past." Patient denies any perceptional services or delusions but continues with confusion as he is alert and oriented only to person and place. Review of Systems All other systems reviewed negative except as stated in HPI Mental Status Examination Appearance: Appropriate ([facility]) Consciousness: Alert Orientation: Person, Place Motor Activity: Normal gait Speech: Unremarkable Language: Adequate (Noted with Eastern accent) Fund of Knowledge: Inadequate Attention and Concentration: Inadequate Memory: Impaired Mood: Other ("Fine") Affect: Blunt Thought Process & Associations: Disorganized (At times), Other ([place]) Thought Content: Appropriate Hallucination Type: None Delusion Type: None Suicidal Ideation: No Suicidal Plan: No Suicidal Intention: No Homicidal Ideation: No Homicidal Plan: No Homicidal Intention: No Insight: Poor Judgment: Poor Assessment and Plan - Assessment (1) Adjustment disorder with depressed mood Code(s): F43.21 - Adjustment disorder with depressed mood Status: Acute - Plan Plan: Patient continues to endorse stable mood, denying any depressive symptoms or any suicide ideations and compliant with treatment. Patient continues require completion of antibiotic regimen as per infectious disease consult recommendations and will have repeat urinalysis tomorrow and is clear patient may be medically cleared to return back to his facility. Continue current treatment. Continue to monitor mood and behavior. Discharge planning in progress. Justification for Continued Inpatient Stay: At risk for further decompensation if at lower level of care
[2018-01-24] MEDS: Temazepam 15 MG Capsule PO SCH (21:19)
[2018-01-25] MEDS: Lisinopril 10 MG Tablet PO SCH (06:16)
--- NOTE | 2018-01-25 08:29 | P.PN ---
Subjective Interval history: Follow-up visit for UTI, HTN, and RENARD. Patient is seen ambulating in the cai and later examined in his room. He is awake, alert, oriented 3 and appears to be in no acute distress. He denies any fevers, chills, cough, shortness of breath, chest pain or headache. Patient is asking when he will be able to go home. Physical Exam Vital signs: Vital Signs 01/24/18 18:16 01/25/18 06:00 Temperature 36.5 C 36.4 C L Pulse Rate 66 60 Respiratory Rate 16 16 Blood Pressure 149/81 H 162/81 H Pulse Oximetry 96 96 Intake & Output 01/24/18 01/25/18 01/25/18 18:59 06:59 18:59 Intake Total 2440 / 2440 1000 / 1000 Output Total 650 / 650 1200 / 1200 Balance 1790 / 1790 -200 / -200 Intake: IV 1000 / 1000 1000 / 1000 NS Inj 1,000 ML @ 100 mls/hr IV 1000 / 1000 1000 / 1000 .CONT .Q10H [facility] Rx#:[id number] Oral 1440 / 1440 0 / 0 Oral Supplement 0 / 0 Output: Urine 1200 / 1200 Urine Amount (Catheter) 650 / 650 Indwelling Urethral Catheter 650 / 650 Narrative: GENERAL: Well-nourished, well-developed adult male in no obvious distress. SKIN: Warm and dry. HEAD: Atraumatic. Normocephalic. CARDIOVASCULAR: Regular rate and rhythm. RESPIRATORY: No accessory muscle use. Clear to auscultation. Breath sounds equal bilaterally. GASTROINTESTINAL: Abdomen soft, non-tender, non-distended. Positive bowel sounds. MUSCULOSKELETAL: Extremities without clubbing, cyanosis, or edema. No obvious deformities. NEUROLOGICAL: Awake and alert. No obvious cranial nerve deficits. Motor grossly within normal limits. - Urinary Catheter Management Indwelling Urethral Catheter Cath placed during this visit: yes Reason for continuing: Chronic Urinary Retention Insertion date: 01/20/18 Insertion time: 09:00 Results - Labs CBC & Chem 7: 01/24/18 16:02 01/23/18 11:20 Laboratory Results - last 24 hr 01/24/18 16:02 WBC 7.1 RBC 4.22 L Hgb 13.3 Hct 40.2 MCV 95.2 MCH 31.6 MCHC 33.2 RDW 13.8 Plt Count 211 D MPV 10.6 Neut % (Auto) 65.4 Lymph % (Auto) 22.4 [place] % (Auto) 10.0 H Eos % (Auto) 1.5 Baso % (Auto) 0.7 Neut # (Auto) 4.6 Lymph # (Auto) 1.6 [place] # (Auto) 0.7 Eos # (Auto) 0.1 Baso # (Auto) 0.1 WBC Differential . Differential Comment Auto diff final Assessment and Plan - Plan This is a 72-year-old male with history of hypertension and CVA, admitted at the med psych unit for suicidal ideations Suicidal ideations - management per psychiatry Hypertension -cont Norvasc, aspirin, lisinopril. - Monitor, clonidine as needed. UTI -urinalysis shows pyuria, proteinuria, leukocyte esterase but catheterized sample. UCx grew E. Coli, ESBL , not improving, repeat UA still looks infected , switch macrobid to zosyn for a few days. Solis replaced 01/20. -01/22 Repeat UA identifies E. coli and ESBL. Consult ID; appreciate assistance. - 01/23 ertapenem started by ID -Pending re-collect of UA today, if UA clear can discontinue the ertapenem per ID Acute renal failure -Secondary to obstructive uropathy, s/p IV hydration with improvement in renal function. -Creatinine on 01/23 was 0.95 DVT prophylaxis: Patient is ambulatory Discussed Condition With: Discussed with patient, nurse, Dr. Andres Discharge Planning: Pending UA recheck for today and psych clearance.
--- NOTE | 2018-01-25 09:06 | P.PNPSY ---
Subjective Remarks: Patient seen for follow, chart reviewed. Discussion nursing staff reported the patient with no behavioral issues has a compliant with treatment continued with baseline confusion. Patient was found sitting hospital bed speaking with hospitalist, noted be calm and cooperative. Patient reports feeling "okay" continues to have some confusion as he is alert and oriented only to person and place. Patient states he would like to be able to go home was unable to recall having been visited by his but states she wants to speak to her today. Patient states understanding that he continues require antibiotic regimen at this time and will be likely discharged home once he is medically cleared. Patient denies any suicide ideations, denies any perceptual disturbances or delusions. Review of Systems All other systems reviewed negative except as stated in HPI Mental Status Examination Appearance: Appropriate ([facility]) Consciousness: Alert Orientation: Person, Place Motor Activity: Normal gait Speech: Unremarkable Language: Adequate (Noted with Eastern accent) Fund of Knowledge: Inadequate Attention and Concentration: Inadequate Memory: Impaired Mood: Other ("Fine") Affect: Blunt Thought Process & Associations: Disorganized (At times), Other ([place]) Thought Content: Appropriate Hallucination Type: None Delusion Type: None Suicidal Ideation: No Suicidal Plan: No Suicidal Intention: No Homicidal Ideation: No Homicidal Plan: No Homicidal Intention: No Insight: Poor Judgment: Poor Assessment and Plan - Assessment (1) Adjustment disorder with depressed mood Code(s): F43.21 - Adjustment disorder with depressed mood Status: Acute - Plan Plan: Patient continues with baseline confusion secondary to neurocognitive deficits. Patient has maintained stable mood and denying any suicidal ideation since admission. Patient this time continues require IV antibiotic due to ongoing UTI. Patient likely for discharge once patient is medically cleared. Discharge planning in progress. Justification for Continued Inpatient Stay: At risk for further decompensation if at lower level of care
[2018-01-25] MEDS: amLODIPine 5 MG Tablet PO SCH (09:39)
[2018-01-25] MEDS: Senna/Docusate Sodium 8.6/50 MG Tablet PO SCH ×2 (09:39→21:19)
[2018-01-25] MEDS: buPROPion 150 MG 12 HR Tablet PO SCH ×2 (09:39→21:19)
[2018-01-25] MEDS: Aspirin 325 MG Tablet PO SCH (09:39)
[2018-01-25 10:11] LABS: Albumin 3.3 g/dL (3.4-5.0); Anion Gap 11 meq/L (5-15); Aspartate Aminotransferase 20 U/L (15-37); Calcium 8.5 mg/dL (8.5-10.1); Carbon Dioxide 25.4 meq/L (21.0-32.0); Chloride 105 meq/L (98-107); Glomerular Filtration Rate 85 mL/min (>89); Glucose,Random 110 mg/dL (74-106); Potassium 3.3 meq/L (3.5-5.1); Sodium 141 meq/L (136-145)
[2018-01-25 10:18] LABS: Alanine Aminotransferase 17 U/L (12-78); Alkaline Phosphatase 53 U/L (45-117); Blood Urea Nitrogen 10 mg/dL (7-18); Total Protein 6.3 g/dL (6.4-8.2)
[2018-01-25] MEDS: Temazepam 15 MG Capsule PO SCH (21:19)
[2018-01-26] MEDS: Lisinopril 10 MG Tablet PO SCH (05:27)
[2018-01-26 06:06] VITALS: BP 133/88; PULSE 80; RESP 18; TEMP 97.5; O2SAT 93
[2018-01-26] MEDS: Senna/Docusate Sodium 8.6/50 MG Tablet PO SCH (08:35)
[2018-01-26] MEDS: amLODIPine 5 MG Tablet PO SCH (08:35)
[2018-01-26] MEDS: Aspirin 325 MG Tablet PO SCH (08:35)
[2018-01-26] MEDS: buPROPion 150 MG 12 HR Tablet PO SCH (08:35)
--- NOTE | 2018-01-26 11:15 | P.PN ---
Subjective Interval history: Follow-up visit for UTI, HTN, and RENARD. Spoke with nurse who reports patient has pulled out several IVs. Patient is seen and examined resting in bed comfortably and appears to be in no acute distress. He is awake, alert, oriented to self, place and time. He is asking when he will be able to go home , also requesting to speak to his over the phone. He denies any fevers, chills, nausea, vomiting, diarrhea, cough, shortness of breath or dysuria. Physical Exam Vital signs: Vital Signs 01/25/18 17:51 01/26/18 06:00 Temperature 36.6 C 36.4 C L Pulse Rate 61 80 Respiratory Rate 16 18 Blood Pressure 126/80 133/88 Pulse Oximetry 94 L 93 L Intake & Output 01/25/18 01/26/18 01/26/18 18:59 06:59 18:59 Intake Total 480 / 480 1000 / 1000 Output Total 480 / 480 900 / 900 Balance 0 / 0 100 / 100 Intake: IV 1000 / 1000 NS Inj 1,000 ML @ 100 mls/hr IV 1000 / 1000 .CONT .Q10H [facility] Rx#:[id number] Oral 480 / 480 0 / 0 Output: Urine 480 / 480 900 / 900 Narrative: GENERAL: Well-nourished, well-developed adult male in no obvious distress. SKIN: Warm and dry. HEAD: Atraumatic. Normocephalic. CARDIOVASCULAR: Regular rate and rhythm. RESPIRATORY: No accessory muscle use. Clear to auscultation. Breath sounds equal bilaterally. GASTROINTESTINAL: Abdomen soft, non-tender, non-distended. Positive bowel sounds. MUSCULOSKELETAL: Extremities without clubbing, cyanosis, or edema. No obvious deformities. NEUROLOGICAL: Awake and alert. No obvious cranial nerve deficits. Motor grossly within normal limits. - Urinary Catheter Management Indwelling Urethral Catheter Cath placed during this visit: yes Reason for continuing: Chronic Urinary Retention Insertion date: 01/20/18 Insertion time: 09:00 Results - Labs CBC & Chem 7: 01/24/18 16:02 01/25/18 09:12 Microbiology 01/25/18 08:30 Catheterized Urine Urine Culture - Preliminary No growth in 24 hours Assessment and Plan - Plan This is a 72-year-old male with history of hypertension and CVA, admitted at the med psych unit for suicidal ideations Suicidal ideations - management per psychiatry Hypertension -cont Norvasc, aspirin, lisinopril. -Clonidine as needed. BP has been stable. UTI -urinalysis shows pyuria, proteinuria, leukocyte esterase but catheterized sample. UCx grew E. Coli, ESBL , not improving, repeat UA still looks infected , switch macrobid to zosyn for a few days. Solis replaced 01/20. -01/22 Repeat UA identifies E. coli and ESBL. Consult ID; appreciate assistance. - 01/23 ertapenem started by ID -Preliminary urine culture with no growth after 24 hours. Discussed with ID, okay to discontinue ertapenem and discharged back to his facility. Acute renal failure -Secondary to obstructive uropathy, s/p IV hydration with improvement in renal function. -Creatinine on 01/23 was 0.95 DVT prophylaxis: Patient is ambulatory Discussed Condition With: Discussed with patient, RN and Discharge Planning: Pending UA recheck for today and psych clearance.
--- NOTE | 2018-01-26 20:41 | P.DSPSY ---
Psychiatry Discharge Summary Inpatient Psychiatric care?: Yes Advance Directives: No Mental Health Advance Directive: No Health Care Proxy: No - Admission Admission Date: January 18, 2018 15:37 - Admission Diagnosis (1) Adjustment disorder with depressed mood Code(s): F43.21 - Adjustment disorder with depressed mood Brief History: Patient is a 72-year-old man, with past psychiatric history of unspecified psychosis, wine previous psychiatric admission in October 2017 here at [facility], no previous suicide attempt or self-injurious behavior, followed by Dr. Horne on an outpatient basis, with a past medical history significant for CVA x3, CAD s/p CABG October 2016, HTN, HLD, nonmalignant brain tumor, neurogenic bladder with indwelling catheter, who was brought into the ED under Hu act due to suicidal ideations at the visit with outpatient psychiatrist and was put under Hu act and sent to the ED which he was admitted to the inpatient psychiatry for further evaluation and management. As per chart patient was brought in under Hu act after patient had expressed wanting to take poison and suffocate himself so that his is taking care of financially. Patient was found heavily on the unit noted B, cooperative; seen with nurse and currently alert and oriented only to person and place. Patient is a poor historian as he has poor recollection of history but was able to state that prior to his hospitalization he was staying at a facility in [place]. Patient was not able to give accurate history of events prior to his admission stating that he had seen his psychiatrist Dr. Horne and admitted to having thoughts of wanting to hurt himself 2 weeks ago as he was concerned about the expenses for his illnesses but states that he "changed my mind" and no longer having suicidal ideations. Patient admitted to having attempted to suffocate himself with a pillow 3 weeks ago but states that he is "I am done with this now". Denying any further suicidal ideation since. Patient states that he has had no difficulty with sleep, his mood has been "average" denying feeling depressed recently, no changes in appetite energy or concentration, denying perceptual services or paranoid ideations and states has been compliant with medication and that his gives him his medications. Patient states that he is looking forward to being reunited with his to be helpful and supportive. Past psychiatric history: Previous psychiatric diagnosis of unspecified psychosis, one previous psychiatric admission here at [facility] in October 2017, no history of suicide attempt or self interest behavior. Has outpatient follow-up with Dr. Horne, recently seen as he was sent to the ED from his office after patient expressed suicidal ideation. Patient currently on buspirone SR 150 mg daily, risperidone 3 mg p.o. daily, sertraline 25 mg p.o. daily, and temazepam 50 mg p.o. at bedtime. Substance use history: Alcohol use 1 drink per day denies use of any other substances Past medical history: CVA x3, CAD s/p CABG October 2016, HTN, HLD, nonmalignant brain tumor, neurogenic bladder with indwelling catheter; currently with UTI at this time. 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 Tobacco Use In Past 30 Days: No How Often Do You Have a Drink Containing Alcohol: Never Hospital Course: Patient is a 72-year-old man, with past psychiatric history of unspecified psychosis, wine previous psychiatric admission in October 2017 here at [facility], no previous suicide attempt or self-injurious behavior, followed by Dr. Horne on an outpatient basis, with a past medical history significant for CVA x3, CAD s/p CABG October 2016, HTN, HLD, nonmalignant brain tumor, neurogenic bladder with indwelling catheter, who was brought into the ED under Hu act due to suicidal ideations at the visit with outpatient psychiatrist and was put under Hu act and sent to the ED which he was admitted to the inpatient psychiatry for further evaluation and management. Patient was resumed on risperidone 3 mg p.o. daily, increase bupropion SR 150 mg p.o. twice daily, and temazepam 15 mg at bedtime along with medications for chronic medical issues which patient tolerated well and noted to be calm and cooperative with staff. Patient was followed by the hospitalist service and treated for UTI, noted with improvement in mood, not noted to have any aggressive behavior, did not endorse suicidal ideations since admission. Patient had baseline confusion secondary to neurocognitive deficits. He was observed by staff to not have had any behavioral disturbances, and maintained stable mood through admission and was noted to participate with staff adequately. Patient was noted to participate in self care, engaging with staff and maintained compliance with treatment. Patient reported feeling more hopeful , future oriented and motivated to continue treatment and continue with outpatient follow up. Treatment team was able to set up outpatient follow up appointments which the patient can continue current medication regimen. Upon discharge patient stated that he was feeling ok, reported feeling well with the treatment, as well as motivation to continue recommendations and denied any SI, HI, perceptual disturbances or delusions. 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 Patient was counseled regarding warning signs for need to return to the psychiatric emergency room as part of a general safety plan. Patient advised to call 911 or go nearest ED in case of emergency. Patient agreed with plan. - Discharge Discharge Date: 01/26/18 - Discharge Diagnosis (1) Adjustment disorder with depressed mood Code(s): F43.21 - Adjustment disorder with depressed mood Status: Acute Discharge Disposition: Home - Discharge Instructions Discharge Diet: Heart Healthy Diet Activities You Can Perform: Weight Bearing As Tolerat - Discharge Time > 30 minutes Mental Status Examination Appearance: Appropriate ([facility]) Consciousness: Alert Orientation: Person, Place Motor Activity: Normal gait Speech: Unremarkable Language: Adequate (Noted with Eastern accent) Fund of Knowledge: Inadequate Attention and Concentration: Inadequate Memory: Impaired Mood: Other ("Fine") Affect: Blunt Thought Process & Associations: Intact, Other ([place]) Thought Content: Appropriate Hallucination Type: None Delusion Type: None Suicidal Ideation: No Suicidal Plan: No Suicidal Intention: No Homicidal Ideation: No Homicidal Plan: No Homicidal Intention: No Insight: Poor Judgment: Poor Discharge/Advance Care Plan - Results Vital Signs: Last Vital Signs Temp 97.5 F L 01/26/18 06:00 Pulse 80 01/26/18 06:00 Resp 18 01/26/18 06:00 BP 133/88 01/26/18 06:00 Pulse Ox 93 L 01/26/18 06:00 Lab Results: Laboratory Results Hemoglobin A1c 6.1 % (4.3-6.0) H 01/20/18 08:02 Triglycerides 86 mg/dL (42-150) 01/20/18 08:02 Cholesterol 177 mg/dL (120-200) 01/20/18 08:02 LDL Cholesterol, Calc 91 mg/dL (0-99) 01/20/18 08:02 HDL Cholesterol 69.1 mg/dL (40.0-60.0) H 01/20/18 08:02 TSH 1.430 uIU/mL (0.358-3.740) 01/17/18 18:05 Urine Culture Comments Cath-cult indicated 01/20/18 08:40 Summary of Procedures: none Pending Results: None - Medications Number of antipsychotic medications at discharge: 1 - Discharge Care Plan Goals to Promote Your Health: * To prevent worsening of your condition and complications * To maintain your health at the optimal level Directions to Meet Your Goals: Take your medications as prescribed Follow your dietary instruction Follow activity as directed Keep your appointments as scheduled Take your immunizations and boosters as scheduled If your symptoms worsen call your PCP, if no PCP go to Urgent Care Center or Emergency Room For 11/01 questions related to your inpatient stay or results of tests pending at discharge, please contact Dr. Billy Andres MD at Smoking is Dangerous to Your Health. Avoid second hand smoking
== END 2018-01-26 15:50 ==
LOC: NEPD 17:04 → NEDA 01-18 15:37 → H4EA 01-18 17:07
PROVIDERS: ADMIT Student in an Organized Health Care Education/Training Program; ATTEND Student in an Organized Health Care Education/Training Program